=== PATIENT | female | born 1990 | race Caucasian/White ===

== ENCOUNTER 2018-08-16 18:14 | Emergency (ER) | payer MEDICAID, SELFPAY ==
[2018-08-16 18:24] VITALS: BP 139/69; PULSE 100; RESP 17; TEMP 36.3; O2SAT 98
--- NOTE | 2018-08-16 18:28 | DI.RAD_ITS ---
SYMPTOM/DIAGNOSIS: COUGH PA AND LATERAL CHEST: Comparison is made with 04/24/13. Heart size and pulmonary vasculature are within normal limits. There is an opacity seen in the left lower lobe posteriorly. The lungs are otherwise clear. No effusions or pneumothoraces are identified. The bones are intact. There are degenerative changes seen in the spine. IMPRESSION: Opacity seen in the left lower lobe posteriorly. This may represent a pneumonia. A follow up chest xray is recommended after treatment to document complete resolution of the area.
--- NOTE | 2018-08-16 18:40 | W.ED.GENAD ---
Discharge Plan Disposition Patient Disposition: HOME Condition: Stable Discharge Details Chief Complaint: GenMedical Clinical Impression: Community acquired pneumonia Primary Care Provider: Meño Goodman ED Provider: Santiago Kwong Home Meds and New Rx's Prescriptions: New doxycycline hyclate 100 mg capsule 100 mg PO BID Qty: 20 RF: 0 albuterol sulfate 90 mcg/actuation HFA aerosol inhaler 1 puff IH Q6H PRN (Reason: bronchospasm) Qty: 8 RF: 0 No Action vit,[id number] [Prenatabs Rx] 1 EACH tablet 1 tab-cap PO DAILY Qty: 90 RF: 3 bupropion HCl 300 MG tablet extended release 24 hr 300 mg PO DAILY Qty: 30 RF: 11 Discharge Instructions Instructions: Community Acquired Pneumonia (ED) Additional Instructions: As you know it is our recommendation that he stay overnight. Since you are leaving to go home against the recommendations we do request that he follow-up immediately tomorrow morning with your primary care provider. Do not miss any doses of your antibiotic. Please take the inhaler as directed. If you notice any worsening of your symptoms whatsoever please return immediately. if you notice any worsening of your symptoms, or any new symptoms such as vomiting, diarrhea, fever, chills, shortness of breath, chest pain, numbness, weakness, or fainting , please return immediately to the emergency department for reevaluation. Please follow up with your primary care provider as soon as possible for reassessment and reevaluation. As always, it was a pleasure participating in your medical care today. Referrals: Meño Goodman [Primary Care Provider] - Medical Decision Making This is a pleasant 28-year-old female who presents for evaluation of malaise, cough with productive yellow sputum, mild headache, dehydration. Physical exam demonstrates wheezes and crackles in the lungs, notable dehydration on exam. No signs of meningitis on exam or abdominal tenderness. I feel she is most likely suffering from a viral URI worsened by her regular tobacco use. We will rehydrate, assess for pneumonia, and perform laboratory workup to evaluate for any acute process. In p.m. patient's laboratory workup has returned and demonstrates a notably elevated white count at 27, she has 9 bands present. Potassium is slightly low at 3.2, renal function is normal. Calcium is slightly low at 8.2. Chest x-ray results have returned and per virtual radiology there is left lower lobe infiltrate. Patient's oxygen saturations remained normal. She has complete resolution of her tachycardia. She has no tachypnea, and she states she feels much better. The patient's curb 65 score for pneumonia severity is 0, and places her in a low risk group with a 0.6% 30-day mortality with outpatient treatment recommended. Because of the evidence of pneumonia on x-ray, I do feel that antibiotics are indicated especially in conjunction with her elevated white count. Azithromycin and Rocephin were given. I discussed with the patient the option of inpatient admission, and she states very clearly that she would like to go home, and if she has to sign an AMA form then she has no problem doing that. She states that if she stays overnight she would just have nervous breakdowns, since she is not able to see her children. She assures me that she will follow-up with her PCP in the morning. After a long discussion with the patient regarding the risks and benefits of inpatient versus outpatient admission the patient will be discharged home per her request. We discussed that this does have slightly increased chance of worsened outcome however with her normal vital signs, no signs of hypoxemia, resolved tachycardia, and afebrile state I feel that it is certainly reasonable. Prior to discharge repeat examination demonstrated no signs of meningitis or nuchal rigidity, no significant chest pain, no signs of respiratory distress, no abdominal tenderness. Patient will be discharged home with close follow-up tomorrow morning with her PCP. Long and thorough discussion with her regarding red flags which to return. I have extensively reviewed the treatment plan and discharge instructions with the patient. I have addressed all patient concerns at this time. The patient was made aware of what symptoms to monitor for that would warrant a return to the emergency department. Discussed the plan with the patient, they demonstrate verbal understanding and agreement with our assessment and plan at this time. HPI General Date/Time Provider Initiated Documentation: 08/16/18 18:27. HPI Narrative: This is a 28-year-old female with no significant past medical history except for tobacco abuse who presents today for evaluation of 3-4 days of headache, occasional chills, nausea, cough with productive yellow sputum, with occasional loose stools. She denies any hematochezia melena or acholic stool. She denies any hematemesis. She does admit to minimal speckling of red in her sputum when she coughs today. No previous episodes of this, or his previous hemoptysis. She is not on estrogen. Denies PE risk factors such as recent long car rides, immobilization, recent surgery, prior history of DVT or PE, family history of PE or DVT, morbid obesity, exogenous estrogen and smoking, hemoptysis, history of cancer. She has been taking occasional Tylenol and Motrin for symptoms. She does not use any bronchodilators. She denies any other complaints at this time. She denies any chest pain, pleuritic chest pain, calf pain, IV or illicit drug use, or recent surgeries. Related Data Home Medications Medication Instructions Recorded Confirmed vit,[id number] 1 tab-cap PO DAILY #90 tab-cap 05/26/18 08/16/18 [Prenatabs Rx Tablet] bupropion HCl 300 mg PO DAILY #30 tab-cap 07/05/18 08/16/18 albuterol sulfate 1 puff IH Q6H PRN #8 gm 08/16/18 doxycycline hyclate 100 mg PO BID #20 cap 08/16/18 Previous Rx's Medication Instructions Recorded vit,[id number] 1 tab-cap PO DAILY #90 tab-cap 05/26/18 [Prenatabs Rx Tablet] bupropion HCl 300 mg PO DAILY #30 tab-cap 07/05/18 albuterol sulfate 1 puff IH Q6H PRN #8 gm 08/16/18 doxycycline hyclate 100 mg PO BID #20 cap 08/16/18 Allergies Allergy/AdvReac Type Severity Reaction Status Date / Time No Known Allergies Allergy Unverified 06/22/18 16:28 General Stated Complaint: GenMedical FELIZ: 3 Review of Systems Review of Systems All systems reviewed & are unremarkable except as noted in HPI and below PFSH Social History Smoking/Tobacco Use Status: Current every day Exam Narrative Exam Narrative: 1.Const: Well-nourished, Well-developed, appearing stated age 2.Eyes: PERRL, no conjunctival injection, and symmetrical lids. 3.ENT: Atraumatic external nose and ears. Notably dry MM. Neck: Symmetric, trachea midline, No thyromegaly. Patient demonstrates good movement of cervical neck. There is no nuchal rigidity, no nuchal tenderness. Patient is able to flex the neck without any difficulty or significant pain. Negative Kernig's and Brudzinski sign. 4.CVS: +S1/S2, No murmurs or gallops. Peripheral pulses 2+ and equal in all extremities. Brisk capillary refill in all extremities. 5.RESP: Unlabored respiratory effort. Notable crackles and wheezes throughout. 6.GI: Soft, Nontender/Nondistended, No hepatosplenomegaly. No guarding or rebound. No pain at McBurney's point, negative Peter sign. 7.MSK: Normocephalic/Atraumatic, Extremities w/o deformity or ttp No cyanosis or clubbing, Normal movement of all extremities 8.Skin: Warm, Dry. No rashes or lesions. 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 Sensation grossly intact, no focal neurologic deficits. 10.Psych: (AAO) x3. Appropriate mood and affect Course Vital Signs Temperature 36.3 C L 08/16/18 18:24 Pulse 100 H 08/16/18 18:24 Respiratory Rate 17 08/16/18 18:24 Blood Pressure 139/69 08/16/18 18:24 Pulse Oximetry 98 08/16/18 18:24 Temperature 36.3 C L 08/16/18 18:24 Temperature Source Temporal Artery Scan 08/16/18 18:24 Pulse 100 H 18 18:24 Respiratory Rate 17 08/16/18 18:24 Respiratory Effort 08/16/18 18:27 Blood Pressure 139/69 08/16/18 18:24 Blood Pressure Position Supine 08/16/18 18:24 Pulse Oximetry 98 08/16/18 18:24 Oxygen Delivery Method Room Air 08/16/18 18:24 Oxygen Flow Rate 0 08/16/18 18:24
--- NOTE | 2018-08-16 18:45 | ED.GENADUL_ITS ---
Discharge Plan Disposition Patient Disposition: HOME Condition: Stable Discharge Details Chief Complaint: GenMedical Clinical Impression: Community acquired pneumonia Primary Care Provider: Meño Goodman ED Provider: Santiago Kwong Home Meds and New Rx's Prescriptions: New doxycycline hyclate 100 mg capsule 100 mg PO BID Qty: 20 RF: 0 albuterol sulfate 90 mcg/actuation HFA aerosol inhaler 1 puff IH Q6H PRN (Reason: bronchospasm) Qty: 8 RF: 0 No Action vit,[id number] [Prenatabs Rx] 1 EACH tablet 1 tab-cap PO DAILY Qty: 90 RF: 3 bupropion HCl 300 MG tablet extended release 24 hr 300 mg PO DAILY Qty: 30 RF: 11 Discharge Instructions Instructions: Community Acquired Pneumonia (ED) Additional Instructions: As you know it is our recommendation that he stay overnight. Since you are leaving to go home against the recommendations we do request that he follow-up immediately tomorrow morning with your primary care provider. Do not miss any doses of your antibiotic. Please take the inhaler as directed. If you notice any worsening of your symptoms whatsoever please return immediately. if you notice any worsening of your symptoms, or any new symptoms such as vomiting, diarrhea, fever, chills, shortness of breath, chest pain, numbness, weakness, or fainting , please return immediately to the emergency department for reevaluation. Please follow up with your primary care provider as soon as possible for reassessment and reevaluation. As always, it was a pleasure participating in your medical care today. Referrals: Meño Goodman [Primary Care Provider] - Medical Decision Making This is a pleasant 28-year-old female who presents for evaluation of malaise, cough with productive yellow sputum, mild headache, dehydration. Physical exam demonstrates wheezes and crackles in the lungs, notable dehydration on exam. No signs of meningitis on exam or abdominal tenderness. I feel she is most likely suffering from a viral URI worsened by her regular tobacco use. We will rehydrate, assess for pneumonia, and perform laboratory workup to evaluate for any acute process. In p.m. patient's laboratory workup has returned and demonstrates a notably elevated white count at 27, she has 9 bands present. Potassium is slightly low at 3.2, renal function is normal. Calcium is slightly low at 8.2. Chest x-ray results have returned and per virtual radiology there is left lower lobe infiltrate. Patient's oxygen saturations remained normal. She has complete resolution of her tachycardia. She has no tachypnea, and she states she feels much better. The patient's curb 65 score for pneumonia severity is 0, and places her in a low risk group with a 0.6% 30-day mortality with outpatient treatment recommended. Because of the evidence of pneumonia on x-ray, I do feel that antibiotics are indicated especially in conjunction with her elevated white count. Azithromycin and Rocephin were given. I discussed with the patient the option of inpatient admission, and she states very clearly that she would like to go home, and if she has to sign an AMA form then she has no problem doing that. She states that if she stays overnight she would just have nervous breakdowns, since she is not able to see her children. She assures me that she will follow-up with her PCP in the morning. After a long discussion with the patient regarding the risks and benefits of inpatient versus outpatient admission the patient will be discharged home per her request. We discussed that this does have slightly increased chance of worsened outcome however with her normal vital signs, no signs of hypoxemia, resolved tachycardia , and afebrile state I feel that it is certainly reasonable. Prior to discharge repeat examination demonstrated no signs of meningitis or nuchal rigidity, no significant chest pain, no signs of respiratory distress, no abdominal tenderness. Patient will be discharged home with close follow-up tomorrow morning with her PCP. Long and thorough discussion with her regarding red flags which to return. I have extensively reviewed the treatment plan and discharge instructions with the patient. I have addressed all patient concerns at this time. The patient was made aware of what symptoms to monitor for that would warrant a return to the emergency department. Discussed the plan with the patient, they demonstrate verbal understanding and agreement with our assessment and plan at this time. HPI General Date/Time Provider Initiated Documentation: 08/16/18 18:27 . HPI Narrative: This is a 28-year-old female with no significant past medical history except for tobacco abuse who presents today for evaluation of 3- 4 days of headache, occasional chills, nausea, cough with productive yellow sputum, with occasional loose stools. She denies any hematochezia melena or acholic stool. She denies any hematemesis. She does admit to minimal speckling of red in her sputum when she coughs today. No previous episodes of this, or his previous hemoptysis. She is not on estrogen. Denies PE risk factors such as recent long car rides, immobilization, recent surgery, prior history of DVT or PE, family history of PE or DVT, morbid obesity, exogenous estrogen and smoking, hemoptysis, history of cancer. She has been taking occasional Tylenol and Motrin for symptoms. She does not use any bronchodilators. She denies any other complaints at this time. She denies any chest pain, pleuritic chest pain, calf pain, IV or illicit drug use, or recent surgeries. Related Data Home Medications Medication Instructions Recorded Confirmed vit,[id number] 1 tab-cap PO DAILY #90 tab-cap 05/26/18 08/16/18 [Prenatabs Rx Tablet] bupropion HCl 300 mg PO DAILY #30 tab-cap 07/05/18 08/16/18 albuterol sulfate 1 puff IH Q6H PRN #8 gm 08/16/18 doxycycline hyclate 100 mg PO BID #20 cap 08/16/18 Previous Rx's Medication Instructions Recorded vit,[id number] 1 tab-cap PO DAILY #90 tab-cap 05/26/18 [Prenatabs Rx Tablet] bupropion HCl 300 mg PO DAILY #30 tab-cap 07/05/18 albuterol sulfate 1 puff IH Q6H PRN #8 gm 08/16/18 doxycycline hyclate 100 mg PO BID #20 cap 08/16/18 Allergies Allergy/AdvReac Type Severity Reaction Status Date / Time No Known Allergies Allergy Unverified 06/22/18 16:28 General Stated Complaint: GenMedical FELIZ: 3 Review of Systems Review of Systems All systems reviewed & are unremarkable except as noted in HPI and below PFSH Social History Smoking/Tobacco Use Status: Current every day Exam Narrative Exam Narrative: 1.Const: Well-nourished, Well-developed, appearing stated age 2.Eyes: PERRL, no conjunctival injection, and symmetrical lids. 3.ENT: Atraumatic external nose and ears. Notably dry MM. Neck: Symmetric, trachea midline, No thyromegaly. Patient demonstrates good movement of cervical neck. There is no nuchal rigidity, no nuchal tenderness. Patient is able to flex the neck without any difficulty or significant pain. Negative Kernig's and Brudzinski sign. 4.CVS: +S1/S2, No murmurs or gallops. Peripheral pulses 2+ and equal in all extremities. Brisk capillary refill in all extremities. 5.RESP: Unlabored respiratory effort. Notable crackles and wheezes throughout. 6.GI: Soft, Nontender/Nondistended, No hepatosplenomegaly. No guarding or rebound. No pain at McBurney's point, negative Peter sign. 7.MSK: Normocephalic/Atraumatic, Extremities w/o deformity or ttp No cyanosis or clubbing, Normal movement of all extremities 8.Skin: Warm, Dry. No rashes or lesions. 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 Sensation grossly intact, no focal neurologic deficits. 10.Psych: (AAO) x3. Appropriate mood and affect Course Vital Signs Temperature 36.3 C L 08/16/18 18:24 Pulse 100 H 08/16/18 18:24 Respiratory Rate 17 08/16/18 18:24 Blood Pressure 139/69 08/16/18 18:24 Pulse Oximetry 98 08/16/18 18:24 Temperature 36.3 C L 08/16/18 18:24 Temperature Source Temporal Artery Scan 08/16/18 18:24 Pulse 100 H 18 18:24 Respiratory Rate 17 08/16/18 18:24 Respiratory Effort 08/16/18 18:27 Blood Pressure 139/69 08/16/18 18:24 Blood Pressure Position Supine 08/16/18 18:24 Pulse Oximetry 98 08/16/18 18:24 Oxygen Delivery Method Room Air 08/16/18 18:24 Oxygen Flow Rate 0 08/16/18 18:24
[2018-08-16 18:47] VITALS: RESP 17
[2018-08-16 18:51] LABS: Abs Immature Grans 0.39 k/cumm (0.0-0.09); Basophils % 0.1; HGB 11.5 g/dL (12.0-15.5); Mean Corp. HGB Concentration 33.8 g/dL (32.0-36.0); Mean Corpuscular Hemoglobin 30.2 pg (27.0-33.0); Mean Corpuscular Volume 89.2 fL (80-95); Mean Platelet Volume 11.1 fL (8.0-11.0); Platelet Count 218 x1000/uL (130-400); RBC 3.81 m/cumm (4.00-5.20); RBC Distribution Width 12.8 % (11.7-14.6)
[2018-08-16 18:54] LABS: Absolute Basophil Count 0.03 k/cumm (0.0-0.2)
[2018-08-16] MEDS: Normal Saline 1,000 ML 1000 ML IV ×2 (19:00→21:23)
[2018-08-16] MEDS: Albuterol/Ipratropium 3 ML UPD VIAL 9 ML UPD (19:00)
[2018-08-16 19:17] LABS: ALT 27 U/L (12-78); AST 13 U/L (15-37); Albumin 2.8 g/dL (3.4-5.0); Alkaline Phosphatase 99 U/L (46-116); Anion Gap 6.8 mmol/L (3-11); BUN 15 mg/dL (7-18); Bilirubin, Total 0.6 mg/dL (0.2-1.0); CO2 27.2 mmol/L (21.0-32.0); CREATININE 1.03 mg/dL (0.55-1.02); Calcium 8.2 mg/dL (8.5-10.1); Chloride 101 mmol/L (98-107); Glucose 159 mg/dL (70-100); Potassium 3.2 mmol/L (3.5-5.1); Sodium 135 mmol/L (136-145)
[2018-08-16 19:36] LABS: Absolute Eosinophil Count 0.28 k/cumm (0.0-0.7); Absolute Lymphocyte Count 2.22 k/cumm (1.2-3.4); Absolute Monocyte Count 1.67 k/cumm (0.11-0.7); Absolute Neutrophil Count 23.31 k/cumm (1.2-6.7); Atypical Lymphocytes % 2
[2018-08-16 19:41] LABS: White Blood Cell Count 27.75 k/cumm (4.4-10.8)
[2018-08-16] MEDS: Ondansetron 4 MG/2 ML VIAL (19:48)
[2018-08-16 20:07] LABS: Lactate-non-spesis 1.3 mmol/L (0.6-1.4)
--- NOTE | 2018-08-16 20:17 | DI.VRAD_ITS ---
EXAM: XR Chest, 2 Views EXAM DATE/TIME: 08/16/2018 6:36 PM CLINICAL HISTORY: 28 years old, female; Cough 1 week TECHNIQUE: XR of the chest, 2 views. COMPARISON: No relevant prior studies available. FINDINGS: Lungs: Left lower lobe infiltrate. Pleural space: Unremarkable. No pleural effusion. No pneumothorax. Heart/Mediastinum: Unremarkable. No cardiomegaly. Bones/joints: Spinal degenerative changes. IMPRESSION: Left lower lobe infiltrate. Dictated and Authenticated by: Elie Yoo MD. Ordering:IVIS BUSTILLO MD
[2018-08-16] MEDS: AZITHROMYCIN 500 MG in Normal Saline 250 ML 250 MG IVPB (21:23)
[2018-08-16 21:55] LABS: Bilirubin Small (Negative); Blood Small (Negative); Clarity Clear; Glucose Negative (Negative); Ketones Trace mg/dL (Negative); Leukocyte Esterase Negative (Negative); Nitrite Negative (Negative); Specific Gravity 1.015 (1.005-1.025); pH 6.5 (5-8)
[2018-08-16] MEDS: LORazepam 2 MG/ML VIAL 0.5 MG IVP (21:57)
[2018-08-16 22:06] LABS: Bacteria Moderate HPF (Negative); C & S Indicated? No/Sq. Contamination; Casts Negative LPF (Negative); Crystals Negative HPF (Negative); Epithelial Cells Many HPF (Negative); Mucus Trace (Negative)
[2018-08-16 22:27] VITALS: BP 130/79; PULSE 97; RESP 16; TEMP 36.5; O2SAT 98
== END 2018-08-16 22:29 | disposition home or self-care (01) ==
PROVIDERS: Emergency Provider Student in an Organized Health Care Education/Training Program; PCP Family Medicine
DX: J18.9 Pneumonia, unspecified organism (principal); E87.6 Hypokalemia; F17.210 Nicotine dependence, cigarettes, uncomplicated
CPT/HCPCS: 36415; 80053; 81025; 87040; 94640; 96361; 96365; 96367; 96375; 99284; 71046; 81003; 81015; 83605; 85025; 99285; J0456; J0696; J1885; J2060; J2405; J7620

== ENCOUNTER 2018-08-17 10:30 | Emergency (ER) | payer MEDICAID, SELFPAY ==
[2018-08-17 10:37] VITALS: BP 128/64; PULSE 82; RESP 16; TEMP 36.3; O2SAT 97
--- NOTE | 2018-08-17 11:06 | ED.GENADUL_ITS ---
Discharge Plan Disposition Patient Disposition: HOME Condition: Fair Discharge Details Chief Complaint: Recheck Clinical Impression: Pneumonia Primary Care Provider: Meño Goodman ED Provider: Anne Storey Home Meds and New Rx's Prescriptions: Continue vit,[id number] [Prenatabs Rx] 1 EACH tablet 1 tab-cap PO DAILY Qty: 90 RF: 3 bupropion HCl 300 MG tablet extended release 24 hr 300 mg PO DAILY Qty: 30 RF: 11 doxycycline hyclate 100 mg capsule 100 mg PO BID Qty: 20 RF: 0 albuterol sulfate 90 mcg/actuation HFA aerosol inhaler 1 puff IH Q6H PRN (Reason: bronchospasm) Qty: 8 RF: 0 acetaminophen [Mapap Extra Strength] 500 MG tablet 1,000 mg PO Q6H 5 Days Qty: 60 RF: 0 ibuprofen [Motrin IB] 200 MG tablet 600 mg PO Q6H 5 Days Qty: 60 RF: 0 Discharge Instructions Instructions: Pneumonia (ED) Additional Instructions: Continue to encourage hydration. Please take antibiotics and use inhaler as previously prescribed. You are giving your first dose of doxycycline for today. Please keep appointment for Wednesday at 1:20PM with your primary care. If you develop shortness of breath, difficulty breathing, inability to stay hydrated or other new/worsening symptoms please seek care urgently once again. Referrals: Meño Goodman [Primary Care Provider] - 08/19/18 1:20 pm ([phone]) Medical Decision Making Patient is a 28-year-old female presenting today with chief complaint of cough. Patient was seen yesterday and diagnosed with pneumonia. She reports she was advised to come back for recheck today. States that she continues to be fatigued, endorsed cough, chills. Has been trying to hydrate but states this is been a slow process. Was given 2 L while here yesterday. Was noted to have an elevated white count and a left lower lobe infiltrate. At this time, she is also endorsing pain in the left side of her back. Patient is an active smoker. On exam, she appears nontoxic. Nursing staff reports that she appears much improved from yesterday. She appears well-hydrated at this time. Vital signs are within normal limits. Patient is not yet begun her doxycycline and she reports she is on the time because of the pharmacy. We will give her dosing of this year. 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 We will give her nebulizer this did help with symptom medic management yesterday. The area of discomfort the patient is indicating, is consistent with area of pneumonia may also be associated with pleuritis or muscle pain from coughing. Patient received a duo nebulizer. Reports that this has increased her coughing. I am not hearing the patient cough at this time. She continues to breathe comfortably. She received her first dose of doxycycline and she has not yet been able to pick this up from the pharmacy. IM Toradol to help with her chest wall discomfort. Patient also be given a Lidoderm patch. I did discuss with her that given the underlying source of this pain, it will be quite difficult to treat. Patient is hydrating well here. I advised she continue to increase her hydration. Tylenol and/or ibuprofen as needed for discomfort. Advised on the time she may next take ibuprofen. I did contact the primary care office and appointment was made for the patient on Wednesday. She was given strict return precautions. All of her questions and concerns were addressed and she is in agreement with this plan. HPI General Mode of arrival: ambulatory . Date/Time Provider Initiated Documentation: 08/17/18 10:47 . Limitations to Documentation: no limitations . Information obtained by: patient . History of Present Illness 28 year old F presents to the emergency department with the chief complaint of pneumonia, described as moderate, with intensity rated at 8. Quality is described as stabbing (with cough) and aching, and is localized to the back ( left ). Patient reports no radiation. Patient started experiencing this day( s) (5) and it has been constant. No relieving factors improve symptom(s), Movement worsens symptoms (coughing and deep inspiration) . Patient notes cough, fever/chills, loss of appetite and shortness of breath (with cough); denies chest pain and rash. Patient did receive the following treatments prior to arrival, none Related Data Home Medications Medication Instructions Recorded Confirmed vit,[id number] 1 tab-cap PO DAILY #90 tab-cap 05/26/18 08/16/18 [Prenatabs Rx] bupropion HCl 300 mg PO DAILY #30 tab-cap 08/21/18 10/02/18 acetaminophen [Mapap Extra 1,000 mg PO Q6H 5 Days #60 tab 08/16/18 Strength] albuterol sulfate 1 puff IH Q6H PRN #8 gm 08/16/18 doxycycline hyclate 100 mg PO BID #20 cap 08/16/18 ibuprofen [Motrin IB] 600 mg PO Q6H 5 Days #60 tab 08/16/18 Previous Rx's Medication Instructions Recorded vit,[id number] 1 tab-cap PO DAILY #90 tab-cap 05/26/18 [Prenatabs Rx] bupropion HCl 300 mg PO DAILY #30 tab-cap 07/05/18 acetaminophen [Mapap Extra 1,000 mg PO Q6H 5 Days #60 tab 08/16/18 Strength] albuterol sulfate 1 puff IH Q6H PRN #8 gm 08/16/18 doxycycline hyclate 100 mg PO BID #20 cap 08/16/18 ibuprofen [Motrin IB] 600 mg PO Q6H 5 Days #60 tab 08/16/18 Allergies Allergy/AdvReac Type Severity Reaction Status Date / Time No Known Allergies Allergy Unverified 06/22/18 16:28 General Stated Complaint: Recheck FELIZ: 4 Review of Systems Constitutional Reports as per HPI, Reports chills, Reports fatigue, Reports fever(s) and Reports poor appetite ENT Denies ear discharge, Denies otalgia, Reports nasal congestion, Reports nasal discharge, Denies sinus pain, Denies sinus pressure and Denies sore throat Cardiovascular Denies chest pain and Reports dyspnea (only with coughing) Respiratory Reports as per HPI, Reports cough, Reports pain on inspiration, Reports pain with cough, Reports dyspnea (only with coughing) and Denies wheezing Gastrointestinal Denies change in stool character, Reports nausea (states that she has nausea after eating) and Denies vomiting Musculoskeletal Reports as per HPI and Reports back pain Integumentary/Breasts Denies rash Endocrine Reports fatigue Allergic/Immunologic Denies wheezing PFSH Social History Smoking/Tobacco Use Status: Current every day Exam Const General: cooperative, healthy appearing, comfortable, no acute distress, well developed, well groomed and acute distress Nutritional Appearance: well nourished and overweight Orientation: alert and awake [facility] Head: normal to inspection and normocephalic Ears: hearing grossly normal bilaterally, external ears normal and TM's normal bilaterally General nose exam: external nose normal Mouth: oral mucosae normal, lip normal, tongue normal, oropharynx normal, moist mucous membranes and no audible dysphonia Teeth and gingiva: dentition normal Throat: posterior oropharynx normal, tonsils normal and uvula midline Eyes General: appearance normal, both eyes and all related structures Neck Neck: normal visual inspection, no lymphadenopathy and no meningeal signs Resp Effort & Inspection: normal respiratory effort, able to speak in complete sentences and no respiratory distress Auscultation: clear to auscultation bilaterally, no rales, no rhonchi and no wheezes Cardio Rate: regular rate Rhythm: regular rhythm Heart Sounds: S1 normal and S2 normal Back/Spine/Pelvis Back/spine/pelvis image: 2 1. area of discomfort Skin General skin exam: no rashes or lesions noted Neuro General: alert and awake Cognition: normal cognition Speech: speech normal Gait: normal gait Psych Appearance: grossly normal and well kempt Mental Status: mental status grossly normal Speech and Movement: speech and movement normal Course Vital Signs Temperature 36.3 C L 08/17/18 10:37 Pulse 82 08/17/18 10:37 Respiratory Rate 16 08/17/18 10:37 Blood Pressure 128/64 08/17/18 10:37 Pulse Oximetry 97 08/17/18 10:37 Temperature 36.3 C L 08/17/18 10:37 Temperature Source Temporal Artery Scan 08/17/18 10:37 Pulse 82 08/17/18 10:37 Respiratory Rate 16 08/17/18 10:37 Blood Pressure 128/64 08/17/18 10:37 Blood Pressure Position Sitting 08/17/18 10:37 Pulse Oximetry 97 08/17/18 10:37 Oxygen Delivery Method Room Air 08/17/18 10:37 Oxygen Flow Rate 0 08/17/18 10:37 Pain Level 8 08/17/18 10:37
[2018-08-17 11:07] VITALS: RESP 1; O2SAT 97
[2018-08-17] MEDS: Doxycycline Hyclate 100 MG CAP PO (11:07)
[2018-08-17] MEDS: Ketorolac 60 MG/2 ML VIAL IM (11:07)
[2018-08-17] MEDS: Albuterol/Ipratropium 3 ML UPD VIAL UPD (11:07)
[2018-08-17] MEDS: Lidocaine 5% Patch 1 PATCH TP (11:28)
== END 2018-08-17 11:33 | disposition home or self-care (01) ==
PROVIDERS: Emergency Provider Physician Assistant; PCP Family Medicine
DX: J18.9 Pneumonia, unspecified organism (principal); F17.210 Nicotine dependence, cigarettes, uncomplicated
CPT/HCPCS: 94640; 96372; 99284; 99283; J1885; J7620

== ENCOUNTER 2018-10-11 08:19 | Emergency (ER) | payer MEDICAID, SELFPAY ==
[2018-10-11 08:27] VITALS: BP 131/71; PULSE 78; RESP 18; TEMP 37.1; O2SAT 96
--- NOTE | 2018-10-11 08:39 | DI.RAD_ITS ---
SYMPTOM/DIAGNOSIS: COUGH PA AND LATERAL CHEST: Comparison is made with 16 August 2018. The heart size is normal. The lungs are suboptimally inflated on both views but appear clear. The previously noted left lower lobe infiltrate has cleared. IMPRESSION: Negative chest x-ray.
[2018-10-11 08:43] VITALS: RESP 8
[2018-10-11] MEDS: Albuterol 2.5 MG/3 ML INH SOLN VIAL UPD (08:43)
[2018-10-11 10:20] VITALS: BP 113/74; PULSE 81; RESP 16; TEMP 36.8; O2SAT 99
--- NOTE | 2018-10-11 10:22 | W.ED.GENAD ---
Discharge Plan Disposition Patient Disposition: HOME Discharge Details Chief Complaint: RespSymp Clinical Impression: URI (upper respiratory infection), Diarrhea Primary Care Provider: Meño Goodman ED Provider: Andrzej Pina Home Meds and New Rx's Prescriptions: Continue benzonatate 200 mg capsule 200 mg PO TID PRN (Reason: cough) Qty: 30 RF: 0 inhalational spacing device [Aerochamber MV] spacer .ROUTE .MEDSUPPLY Qty: 1 RF: 0 [id number] [Prenatabs Rx] 1 EACH tablet 1 tab-cap PO DAILY Qty: 90 RF: 3 bupropion HCl 300 MG tablet extended release 24 hr 300 mg PO DAILY Qty: 30 RF: 11 albuterol sulfate 90 mcg/actuation HFA aerosol inhaler 1 puff IH Q6H PRN (Reason: bronchospasm) Qty: 8 RF: 0 Discharge Instructions Instructions: Upper Respiratory Infection (ED), Acute Diarrhea (ED) Additional Instructions: Please drink plenty of fluid and allow for plenty of rest. Please contact your primary care physician to arrange follow-up. You may need further testing of your stool for diarrhea. Return to the ER for any worsening or new concerning symptoms. Stand Alone Forms: Work Release Referrals: Meño Goodman [Primary Care Provider] - Discharge Data Discharge Date/Time-TO BE ENTERED AT DEPARTURE: 10/11/18 10:39 Medical Decision Making 10:20 -- 28yo f smoker here with cough for the past 2 days, associated fatigue, body aches and JORDAN. Lungs clear. Saturating well and no resp distress. Albuterol neb was provided for reactive airway disease by nursing. Chest x-ray was reviewed and interpreted by radiology: Negative. I spoke with the radiologist about this and she noted that lungs much improved from prior pneumonia in August and now clear. Rapid flu testing was performed and negative. Patient also notes loose stool for the past month and likely started after antibiotic use. Consider C. difficile colitis. Abdomen benign. Patient unable to provide stool specimen here. She was advised to follow-up with her primary care physician. Advised supportive care and outpatient follow-up. Patient verbalized understanding of the importance of timely outpatient follow-up and will call her primary care physician to arrange this today. Disposition decision was made weighing the risks and benefits of hospitalization versus outpatient treatment, the risk for further decompensation, and the patient's wishes. The patient was stable and requested discharge. Prior to discharge, my usual and customary return precautions were reviewed with the patient and his - this included follow-up instructions and reason to return to the emergency department if condition worsens, does not improve as expected, or other new concerns arise. HPI General Mode of arrival: ambulatory. Date/Time Provider Initiated Documentation: 10/11/18 08:36. Limitations to Documentation: no limitations. Information obtained by: patient. HPI Narrative: 28yo f smoker here with cough for the past 2 days, associated fatigue, body aches and JORDAN. Symptoms are moderate, persistent, no modifiers. No associated fever. Related Data Home Medications Medication Instructions Recorded Confirmed vit,[id number] 1 tab-cap PO DAILY #90 tab-cap 05/26/18 10/11/18 [Prenatabs Rx] bupropion HCl 300 mg PO DAILY #30 tab-cap 07/05/18 10/11/18 albuterol sulfate 1 puff IH Q6H PRN #8 gm 08/16/18 08/19/18 benzonatate 200 mg capsule 200 mg PO TID PRN #30 cap 08/19/18 10/11/18 inhalational spacing device #1 each 08/19/18 08/19/18 Previous Rx's Medication Instructions Recorded vit,[id number] 1 tab-cap PO DAILY #90 tab-cap 05/26/18 [Prenatabs Rx] bupropion HCl 300 mg PO DAILY #30 tab-cap 07/05/18 albuterol sulfate 1 puff IH Q6H PRN #8 gm 08/16/18 benzonatate 200 mg capsule 200 mg PO TID PRN #30 cap 08/19/18 inhalational spacing device #1 each 08/19/18 Allergies Allergy/AdvReac Type Severity Reaction Status Date / Time No Known Allergies Allergy Unverified 10/11/18 08:34 General Stated Complaint: RespSymp FELIZ: 3 Review of Systems Constitutional Reports body ache(s) and Reports headache(s) ENT Reports headache(s) Cardiovascular Denies chest pain and Reports dyspnea Respiratory Reports cough and Reports dyspnea Neurologic Reports headache(s) PFSH Social History household members: family Smoking/Tobacco Use Status: Current every day alcohol intake: current substance use type: marijuana and other details: COCAINE/CRACK (VERY RARELY AT A [employer]),OPIATES, RX FOR BACK PAIN, NOT HERS seatbelt use: sometimes Social History household members: family Smoking/Tobacco Use Status: Current every day alcohol intake: current substance use type: marijuana and other details: COCAINE/CRACK (VERY RARELY AT A [employer]),OPIATES, RX FOR BACK PAIN, NOT HERS seatbelt use: sometimes Exam Const General: cooperative and no acute distress HENMT Head: normocephalic and atraumatic Mouth: moist mucous membranes Eyes Conjunctivae: normal conjunctivae Sclera: normal sclerae Neck Neck: trachea midline and supple Resp Auscultation: no rales, rhonchi lower bilaterally and no wheezes Cardio Jugular venous pressure: no JVD Rate: regular rate and not tachycardic Rhythm: regular rhythm GI Palpation: soft, not firm, no guarding, no masses, not rigid and nontender Skin General skin exam: no rashes or lesions noted Neuro General: alert, awake, oriented x3 and tone normal Extrem General: no edema Psych Appearance: grossly normal Mental Status: mental status grossly normal Speech and Movement: speech and movement normal Course Vital Signs Temperature 37.1 C 10/11/18 08:27 Pulse 78 10/11/18 08:27 Respiratory Rate 18 10/11/18 08:27 Blood Pressure 131/71 10/11/18 08:27 Pulse Oximetry 96 10/11/18 08:27 Temperature 36.8 C 10/11/18 10:20 Temperature Source Temporal Artery Scan 10/11/18 10:20 Pulse 81 10/11/18 10:20 Respiratory Rate 16 10/11/18 10:20 Respiratory Effort 10/11/18 08:36 Respiratory Depth Normal 10/11/18 08:36 Blood Pressure 113/74 10/11/18 10:20 Blood Pressure Position Sitting 10/11/18 08:27 Pulse Oximetry 99 10/11/18 10:20 Oxygen Delivery Method Room Air 10/11/18 10:20 Oxygen Flow Rate 0 10/11/18 10:20 Pain Level 6 10/11/18 08:27 Lab/Test Results Lab/Test Results: 10/11/18 09:43 Nasopharynx Influenza Types A,B Antigen - Final
--- NOTE | 2018-10-11 10:25 | ED.GENADUL_ITS ---
Discharge Plan Disposition Patient Disposition: HOME Discharge Details Chief Complaint: RespSymp Clinical Impression: URI (upper respiratory infection), Diarrhea Primary Care Provider: Meño Goodman ED Provider: Andrzej Pina Home Meds and New Rx's Prescriptions: Continue benzonatate 200 mg capsule 200 mg PO TID PRN (Reason: cough) Qty: 30 RF: 0 inhalational spacing device [Aerochamber MV] spacer .ROUTE .MEDSUPPLY Qty: 1 RF: 0 vit,[id number] [Prenatabs Rx] 1 EACH tablet 1 tab-cap PO DAILY Qty: 90 RF: 3 bupropion HCl 300 MG tablet extended release 24 hr 300 mg PO DAILY Qty: 30 RF: 11 albuterol sulfate 90 mcg/actuation HFA aerosol inhaler 1 puff IH Q6H PRN (Reason: bronchospasm) Qty: 8 RF: 0 Discharge Instructions Instructions: Upper Respiratory Infection (ED), Acute Diarrhea (ED) Additional Instructions: Please drink plenty of fluid and allow for plenty of rest. Please contact your primary care physician to arrange follow-up. You may need further testing of your stool for diarrhea. Return to the ER for any worsening or new concerning symptoms. Stand Alone Forms: Work Release Referrals: Meño Goodman [Primary Care Provider] - Discharge Data Discharge Date/Time-TO BE ENTERED AT DEPARTURE: 10/11/18 10:39 Medical Decision Making 10:20 -- 28yo f smoker here with cough for the past 2 days, associated fatigue, body aches and JORDAN. Lungs clear. Saturating well and no resp distress. Albuterol neb was provided for reactive airway disease by nursing. Chest x-ray was reviewed and interpreted by radiology: Negative. I spoke with the radiologist about this and she noted that lungs much improved from prior pneumonia in August and now clear. Rapid flu testing was performed and negative. Patient also notes loose stool for the past month and likely started after antibiotic use. Consider C. difficile colitis. Abdomen benign. Patient unable to provide stool specimen here. She was advised to follow-up with her primary care physician. Advised supportive care and outpatient follow-up. Patient verbalized understanding of the importance of timely outpatient follow-up and will call her primary care physician to arrange this today. Disposition decision was made weighing the risks and benefits of hospitalization versus outpatient treatment, the risk for further decompensation , and the patient's wishes. The patient was stable and requested discharge. Prior to discharge, my usual and customary return precautions were reviewed with the patient and his - this included follow-up instructions and reason to return to the emergency department if condition worsens, does not improve as expected, or other new concerns arise. HPI General Mode of arrival: ambulatory . Date/Time Provider Initiated Documentation: 10/11/18 08:36 . Limitations to Documentation: no limitations . Information obtained by: patient . HPI Narrative: 28yo f smoker here with cough for the past 2 days, associated fatigue, body aches and JORDAN. Symptoms are moderate, persistent, no modifiers. No associated fever. Related Data Home Medications Medication Instructions Recorded Confirmed vit,[id number] 1 tab-cap PO DAILY #90 tab-cap 05/26/18 10/11/18 [Prenatabs Rx] bupropion HCl 300 mg PO DAILY #30 tab-cap 07/05/18 10/11/18 albuterol sulfate 1 puff IH Q6H PRN #8 gm 08/16/18 08/19/18 benzonatate 200 mg capsule 200 mg PO TID PRN #30 cap 08/19/18 10/11/18 inhalational spacing device #1 each 08/19/18 08/19/18 Previous Rx's Medication Instructions Recorded vit,[id number] 1 tab-cap PO DAILY #90 tab-cap 05/26/18 [Prenatabs Rx] bupropion HCl 300 mg PO DAILY #30 tab-cap 07/05/18 albuterol sulfate 1 puff IH Q6H PRN #8 gm 08/16/18 benzonatate 200 mg capsule 200 mg PO TID PRN #30 cap 08/19/18 inhalational spacing device #1 each 08/19/18 Allergies Allergy/AdvReac Type Severity Reaction Status Date / Time No Known Allergies Allergy Unverified 10/11/18 08:34 General Stated Complaint: RespSymp FELIZ: 3 Review of Systems Constitutional Reports body ache(s) and Reports headache(s) ENT Reports headache(s) Cardiovascular Denies chest pain and Reports dyspnea Respiratory Reports cough and Reports dyspnea Neurologic Reports headache(s) PFSH Social History household members: family Smoking/Tobacco Use Status: Current every day alcohol intake: current substance use type: marijuana and other details: COCAINE/CRACK (VERY RARELY AT A [employer]),OPIATES, RX FOR BACK PAIN, NOT HERS seatbelt use: sometimes Social History household members: family Smoking/Tobacco Use Status: Current every day alcohol intake: current substance use type: marijuana and other details: COCAINE/CRACK (VERY RARELY AT A [employer]),OPIATES, RX FOR BACK PAIN, NOT HERS seatbelt use: sometimes Exam Const General: cooperative and no acute distress HENMT Head: normocephalic and atraumatic Mouth: moist mucous membranes Eyes Conjunctivae: normal conjunctivae Sclera: normal sclerae Neck Neck: trachea midline and supple Resp Auscultation: no rales, rhonchi lower bilaterally and no wheezes Cardio Jugular venous pressure: no JVD Rate: regular rate and not tachycardic Rhythm: regular rhythm GI Palpation: soft, not firm, no guarding, no masses, not rigid and nontender Skin General skin exam: no rashes or lesions noted Neuro General: alert, awake, oriented x3 and tone normal Extrem General: no edema Psych Appearance: grossly normal Mental Status: mental status grossly normal Speech and Movement: speech and movement normal Course Vital Signs Temperature 37.1 C 10/11/18 08:27 Pulse 78 10/11/18 08:27 Respiratory Rate 18 10/11/18 08:27 Blood Pressure 131/71 10/11/18 08:27 Pulse Oximetry 96 10/11/18 08:27 Temperature 36.8 C 10/11/18 10:20 Temperature Source Temporal Artery Scan 10/11/18 10:20 Pulse 81 10/11/18 10:20 Respiratory Rate 16 10/11/18 10:20 Respiratory Effort 10/11/18 08:36 Respiratory Depth Normal 10/11/18 08:36 Blood Pressure 113/74 10/11/18 10:20 Blood Pressure Position Sitting 10/11/18 08:27 Pulse Oximetry 99 10/11/18 10:20 Oxygen Delivery Method Room Air 10/11/18 10:20 Oxygen Flow Rate 0 10/11/18 10:20 Pain Level 6 10/11/18 08:27 Lab/Test Results Lab/Test Results: 10/11/18 09:43 Nasopharynx Influenza Types A,B Antigen - Final
[2018-10-11 10:39] VITALS: BP 113/74; PULSE 81; RESP 16; TEMP 36.8; O2SAT 99
== END 2018-10-11 10:39 | disposition home or self-care (01) ==
PROVIDERS: Emergency Provider Student in an Organized Health Care Education/Training Program; PCP Family Medicine
DX: J06.9 Acute upper respiratory infection, unspecified (principal); R19.7 Diarrhea, unspecified; F17.210 Nicotine dependence, cigarettes, uncomplicated
CPT/HCPCS: 87449; 94640; 99283; 71046; J7613

== ENCOUNTER 2018-10-31 16:23 | Outpatient (REF) | payer MEDICAID, SELFPAY | END 2018-10-31 16:43 | LOC: LBN 16:23 | PROVIDERS: PCP Family Medicine; Visit Provider Student in an Organized Health Care Education/Training Program | DX: R19.7 Diarrhea, unspecified (principal) | CPT/HCPCS: 87324 ==

== ENCOUNTER 2018-12-26 08:24 | Emergency (ER) | payer MEDICAID, SELFPAY ==
[2018-12-26 08:26] VITALS: BP 151/85; PULSE 94; RESP 20; TEMP 36.5; O2SAT 100
--- NOTE | 2018-12-26 08:44 | W.ED.GENAD ---
Discharge Plan Disposition Patient Disposition: HOME Condition: Stable Discharge Details Chief Complaint: EyeProblem Clinical Impression: Acute conjunctivitis of right eye Primary Care Provider: Meño Goodman ED Provider: Neri Echeverria Home Meds and New Rx's Prescriptions: Continued Aerochamber MV spacer .ROUTE .MEDSUPPLY Qty: 1 RF: 0 bupropion HCl 300 mg tablet extended release 24 hr 300 mg PO DAILY Qty: 30 RF: 11 Prenatabs Rx 1 EACH tablet 1 tab-cap PO DAILY Qty: 90 RF: 3 albuterol sulfate 90 mcg/actuation HFA aerosol inhaler 1 puff IH Q6H PRN (Reason: bronchospasm) Qty: 8 RF: 0 Discharge Instructions Instructions: Conjunctivitis (ED) Additional Instructions: Erythromycin 3-4 times daily to right eye for 4-5 days time. Off work today. Home to rest today. Return for any acute concerns. Please follow-up in clinic as planned. Stand Alone Forms: Work Release Medical Decision Making 28-year-old female with a right conjunctival injection crusting of the eyelid with mild irritation. No change in vision and no headache. She is also struggled with recurrent cough over 2 days time. Her lungs are clear, she is afebrile, do not feel that she has recurrent pneumonia. I do feel she has right conjunctivitis and will treat with erythromycin ophthalmic ointment. She is stable for discharge to home HPI General Mode of arrival: ambulatory. Date/Time Provider Initiated Documentation: 12/26/18 08:25. Limitations to Documentation: no limitations. Information obtained by: patient. History of Present Illness 28 year old F presents to the emergency department with the chief complaint of Right eye injection and crusting of eyelid, described as moderate, Quality is described as aching, and is localized to the eyes and right. Patient reports no radiation. Patient started experiencing this hour(s) and it has been constant. No relieving factors improve symptom(s), No exacerbating factors reported . Patient notes cough. Patient did receive the following treatments prior to arrival, none Related Data Home Medications Medication Instructions Recorded Confirmed Prenatabs Rx 1 tab-cap PO DAILY #90 tab-cap 05/26/18 12/26/18 albuterol sulfate 1 puff IH Q6H PRN #8 gm 08/16/18 12/26/18 inhalational spacing device #1 each 08/19/18 11/24/18 bupropion HCl XL 300 mg 24 hr 300 mg PO DAILY #30 tab-cap 11/24/18 12/26/18 tablet, extended release Previous Rx's Medication Instructions Recorded Prenatabs Rx 1 tab-cap PO DAILY #90 tab-cap 05/26/18 albuterol sulfate 1 puff IH Q6H PRN #8 gm 08/16/18 inhalational spacing device #1 each 08/19/18 bupropion HCl XL 300 mg 24 hr 300 mg PO DAILY #30 tab-cap 11/24/18 tablet, extended release Allergies Allergy/AdvReac Type Severity Reaction Status Date / Time No Known Allergies Allergy Unverified 11/24/18 10:51 General Stated Complaint: EyeProblem FELIZ: 4 Review of Systems Review of Systems 6 systems reviewed and otherwise negative [facility] Medical History Major depressive disorder with current active episode (Chronic 06/22/18) Social History household members: family highest education level completed: Associate degree: occupational, technical, vocational program what type of physical activity do you participate in: none Smoking and Tabacco status: Current every day alcohol intake: current substance use type: marijuana and other details: COCAINE/CRACK (VERY RARELY AT A [employer]),OPIATES, RX FOR BACK PAIN, NOT HERS Seatbelt use: sometimes Exam Narrative Exam Narrative: GEN: awake, alert, oriented 3. Pleasant, well groomed, interactive. HEAD: Normocephalic, atraumatic ENT: Mucous membranes moist, oropharynx unremarkable, External ear exam unremarkable EYES: PERRL, EOMI, right conjunctival injection, mild crusting of the eyelids. NECK: Full ROM, no RODRIGUE, no menigismus CHEST/RESP: Nontender, clear to auscultation bilateral, no wheeze/rhonchi/rales CARDIOVASCULAR: RRR, no murmur, rub danyel. 2+ Rad pulse bilateral ABDOMEN: Soft, nontender, no mass. +Bowel sounds EXT: Full ROM, no edema, no rash Neuro: Grossly normal neurologic exam, conversant, interactive. Psych: Speech fluent, thoughts congruent, affect normal Course Vital Signs Temperature 36.5 C 12/26/18 08:26 Pulse 94 H 12/26/18 08:26 Respiratory Rate 20 12/26/18 08:26 Blood Pressure 151/85 H 12/26/18 08:26 Pulse Oximetry 100 12/26/18 08:26 Temperature 36.5 C 12/26/18 08:26 Temperature Source Temporal Artery Scan 12/26/18 08:26 Pulse 94 H 12/26/18 08:26 Respiratory Rate 20 12/26/18 08:26 Respiratory Effort Non-Labored 12/26/18 08:29 Blood Pressure 151/85 H 12/26/18 08:26 Pulse Oximetry 100 12/26/18 08:26 Oxygen Delivery Method Room Air 12/26/18 08:26 Oxygen Flow Rate 0 12/26/18 08:26 Pain Level 7 12/26/18 08:26
--- NOTE | 2018-12-26 08:47 | ED.GENADUL_ITS ---
Discharge Plan Disposition Patient Disposition: HOME Condition: Stable Discharge Details Chief Complaint: EyeProblem Clinical Impression: Acute conjunctivitis of right eye Primary Care Provider: Meño Goodman ED Provider: Neri Echeverria Home Meds and New Rx's Prescriptions: Continued Aerochamber MV spacer .ROUTE .MEDSUPPLY Qty: 1 RF: 0 bupropion HCl 300 mg tablet extended release 24 hr 300 mg PO DAILY Qty: 30 RF: 11 Prenatabs Rx 1 EACH tablet 1 tab-cap PO DAILY Qty: 90 RF: 3 albuterol sulfate 90 mcg/actuation HFA aerosol inhaler 1 puff IH Q6H PRN (Reason: bronchospasm) Qty: 8 RF: 0 Discharge Instructions Instructions: Conjunctivitis (ED) Additional Instructions: Erythromycin 3-4 times daily to right eye for 4-5 days time. Off work today. Home to rest today. Return for any acute concerns. Please follow-up in clinic as planned. Stand Alone Forms: Work Release Medical Decision Making 28-year-old female with a right conjunctival injection crusting of the eyelid with mild irritation. No change in vision and no headache. She is also struggled with recurrent cough over 2 days time. Her lungs are clear, she is afebrile, do not feel that she has recurrent pneumonia. I do feel she has right conjunctivitis and will treat with erythromycin ophthalmic ointment. She is stable for discharge to home HPI General Mode of arrival: ambulatory . Date/Time Provider Initiated Documentation: 12/26/18 08:25 . Limitations to Documentation: no limitations . Information obtained by: patient . History of Present Illness 28 year old F presents to the emergency department with the chief complaint of Right eye injection and crusting of eyelid, described as moderate, Quality is described as aching, and is localized to the eyes and right. Patient reports no radiation. Patient started experiencing this hour(s) and it has been constant. No relieving factors improve symptom(s), No exacerbating factors reported . Patient notes cough. Patient did receive the following treatments prior to arrival, none Related Data Home Medications Medication Instructions Recorded Confirmed Prenatabs Rx 1 tab-cap PO DAILY #90 tab-cap 05/26/18 12/26/18 albuterol sulfate 1 puff IH Q6H PRN #8 gm 08/16/18 12/26/18 inhalational spacing device #1 each 08/19/18 11/24/18 bupropion HCl XL 300 mg 24 hr 300 mg PO DAILY #30 tab-cap 11/24/18 12/26/18 tablet, extended release Previous Rx's Medication Instructions Recorded Prenatabs Rx 1 tab-cap PO DAILY #90 tab-cap 05/26/18 albuterol sulfate 1 puff IH Q6H PRN #8 gm 08/16/18 inhalational spacing device #1 each 08/19/18 bupropion HCl XL 300 mg 24 hr 300 mg PO DAILY #30 tab-cap 11/24/18 tablet, extended release Allergies Allergy/AdvReac Type Severity Reaction Status Date / Time No Known Allergies Allergy Unverified 11/24/18 10:51 General Stated Complaint: EyeProblem FELIZ: 4 Review of Systems Review of Systems 6 systems reviewed and otherwise negative [facility] Medical History Major depressive disorder with current active episode (Chronic 06/22/18) Social History household members: family highest education level completed: Associate degree: occupational, technical, vocational program what type of physical activity do you participate in: none Smoking and Tabacco status: Current every day alcohol intake: current substance use type: marijuana and other details: COCAINE/CRACK (VERY RARELY AT A [employer]),OPIATES, RX FOR BACK PAIN, NOT HERS Seatbelt use: sometimes Exam Narrative Exam Narrative: GEN: awake, alert, oriented 3. Pleasant, well groomed, interactive. HEAD: Normocephalic, atraumatic ENT: Mucous membranes moist, oropharynx unremarkable, External ear exam unremarkable EYES: PERRL, EOMI, right conjunctival injection, mild crusting of the eyelids. NECK: Full ROM, no RODRIGUE, no menigismus CHEST/RESP: Nontender, clear to auscultation bilateral, no wheeze/rhonchi/rales CARDIOVASCULAR: RRR, no murmur, rub danyel. 2+ Rad pulse bilateral ABDOMEN: Soft, nontender, no mass. +Bowel sounds EXT: Full ROM, no edema, no rash Neuro: Grossly normal neurologic exam, conversant, interactive. Psych: Speech fluent, thoughts congruent, affect normal Course Vital Signs Temperature 36.5 C 12/26/18 08:26 Pulse 94 H 12/26/18 08:26 Respiratory Rate 20 12/26/18 08:26 Blood Pressure 151/85 H 12/26/18 08:26 Pulse Oximetry 100 12/26/18 08:26 Temperature 36.5 C 12/26/18 08:26 Temperature Source Temporal Artery Scan 12/26/18 08:26 Pulse 94 H 12/26/18 08:26 Respiratory Rate 20 12/26/18 08:26 Respiratory Effort Non-Labored 12/26/18 08:29 Blood Pressure 151/85 H 12/26/18 08:26 Pulse Oximetry 100 12/26/18 08:26 Oxygen Delivery Method Room Air 12/26/18 08:26 Oxygen Flow Rate 0 12/26/18 08:26 Pain Level 7 12/26/18 08:26
[2018-12-26] MEDS: Erythromycin Ophth Oint 3.5 GM TUBE OP (08:52)
== END 2018-12-26 08:55 | disposition home or self-care (01) ==
PROVIDERS: Emergency Provider Emergency Medicine; PCP Family Medicine
DX: H10.31 Unspecified acute conjunctivitis, right eye (principal)
CPT/HCPCS: 99283

== ENCOUNTER 2019-01-03 15:56 | Emergency (ER) | payer MEDICAID, SELFPAY ==
[2019-01-03] MEDS: Inhaler, Assist Device 1 EACH MC (16:00)
[2019-01-03 16:12] VITALS: BP 136/59; PULSE 73; RESP 20; TEMP 36.6; O2SAT 99
--- NOTE | 2019-01-03 16:27 | W.ED.GENAD ---
Discharge Plan Disposition Patient Disposition: HOME Condition: Stable Discharge Details Chief Complaint: RespSymp Clinical Impression: RAD (reactive airway disease) Primary Care Provider: Meño Goodman ED Provider: Jose Martin Reynoso Home Meds and New Rx's Prescriptions: New prednisone 20 mg tablet 60 mg PO DAILY 5 Days Qty: 15 RF: 0 azithromycin 250 mg tablet See Rx Instructions .ROUTE .COMPLEX Qty: 6 RF: 0 No Action Aerochamber MV spacer .ROUTE .MEDSUPPLY Qty: 1 RF: 0 bupropion HCl 300 mg tablet extended release 24 hr 300 mg PO DAILY Qty: 30 RF: 11 Prenatabs Rx 1 EACH tablet 1 tab-cap PO DAILY Qty: 90 RF: 3 albuterol sulfate 90 mcg/actuation HFA aerosol inhaler 1 puff IH Q6H PRN (Reason: bronchospasm) Qty: 8 RF: 0 Discharge Instructions Instructions: Reactive Airways Disease (ED) Additional Instructions: I suspect you have reactive airway disease and have a viral illness. Follow up with your primary care provider in 1-2 weeks. You should discuss having formal testing for asthma as well IF you have high fevers or feel you are significantly more ill return to the emergency department if you feel you are not improving in 2 days fill the antibiotic Medical Decision Making 28 yo female who denies any chronic medical problems, smoker, rare alcohol use and denies drug use, comes in with cc of intermittent cough for 4-5 months. Has not had any recent travel and denies chest asmita, fevers, chills, rashes. She feels fatigued but has felt this way for months. She has no chest asmita or pressure to suggest acs. She is speaking in full sentences on my exam in no distress. She has clear lungs throughout other than bilateral apical wheezing. She was given an inhaler and abx for pna per pt last fall but doesn't have an inhaler right now and hasn't seen her pcp due to insurance reasons. I suspect she has RAD and is worsened by likely smoking and viral uri. No fevers and apperas well with stable vitals so do not feel xray indicated. I am going to send her home with an inhaler and prescription for prednisone. She requests an abx and I advised it is likely viral but she still would like it. I advised if she is not better in 2-3 days to fill the prescription and return if worsening. She declines assistance with insurance at this time. She will return if worsening Differential Diagnosis asthma, copd, uri, pna, bronchitis HPI General Mode of arrival: ambulatory. Date/Time Provider Initiated Documentation: 01/03/19 16:14. Limitations to Documentation: no limitations. Information obtained by: patient. History of Present Illness 28 year old F presents to the emergency department with the chief complaint of cough, described as moderate, with intensity rated at 5. Patient started experiencing this month(s) (4) and it has been intermittent. No relieving factors improve symptom(s), No exacerbating factors reported . Related Data Home Medications Medication Instructions Recorded Confirmed Prenatabs Rx 1 tab-cap PO DAILY #90 tab-cap 05/26/18 01/03/19 albuterol sulfate 1 puff IH Q6H PRN #8 gm 08/16/18 12/26/18 inhalational spacing device #1 each 08/19/18 11/24/18 bupropion HCl XL 300 mg 24 hr 300 mg PO DAILY #30 tab-cap 11/24/18 01/03/19 tablet, extended release azithromycin See Rx Instructions .ROUTE 01/03/19 .COMPLEX #6 tab prednisone 60 mg PO DAILY 5 Days #15 tab 01/03/19 Previous Rx's Medication Instructions Recorded Prenatabs Rx 1 tab-cap PO DAILY #90 tab-cap 05/26/18 albuterol sulfate 1 puff IH Q6H PRN #8 gm 08/16/18 inhalational spacing device #1 each 08/19/18 bupropion HCl XL 300 mg 24 hr 300 mg PO DAILY #30 tab-cap 11/24/18 tablet, extended release azithromycin See Rx Instructions .ROUTE 01/03/19 .COMPLEX #6 tab prednisone 60 mg PO DAILY 5 Days #15 tab 01/03/19 Allergies Allergy/AdvReac Type Severity Reaction Status Date / Time No Known Allergies Allergy Unverified 01/03/19 16:19 General Stated Complaint: RespSymp FELIZ: 3 Review of Systems Review of Systems All systems reviewed & are unremarkable except as noted in HPI and below Constitutional Denies chills and Denies fever(s) ENT Denies change in voice Cardiovascular Denies chest pain Gastrointestinal Denies abdominal pain, Denies nausea and Denies vomiting Musculoskeletal Denies joint swelling Integumentary/Breasts Denies rash Psychiatric Denies depression PFSH Medical History Major depressive disorder with current active episode (Chronic 06/22/18) Social History household members: family highest education level completed: Associate degree: occupational, technical, vocational program what type of physical activity do you participate in: none Smoking and Tabacco status: Current every day alcohol intake: current substance use type: marijuana and other details: COCAINE/CRACK (VERY RARELY AT A [employer]),OPIATES, RX FOR BACK PAIN, NOT HERS Seatbelt use: sometimes Exam Const General: no acute distress Orientation: alert HENMT Head: normal to inspection Ears: external ears normal General nose exam: external nose normal Mouth: moist mucous membranes Eyes General: appearance normal, both eyes and all related structures Neck Neck: normal visual inspection Resp Effort & Inspection: normal respiratory effort and able to speak in complete sentences Cardio Rate: regular rate Skin General skin exam: no rashes or lesions noted Neuro General: alert and oriented x3 Extrem General: normal to inspection Psych Mental Status: mental status grossly normal Course Vital Signs Temperature 36.6 C 01/03/19 16:12 Pulse 73 01/03/19 16:12 Respiratory Rate 20 01/03/19 16:12 Blood Pressure 136/59 L 01/03/19 16:12 Pulse Oximetry 99 01/03/19 16:12 Temperature 36.6 C 01/03/19 16:12 Temperature Source Temporal Artery Scan 01/03/19 16:12 Pulse 73 01/03/19 16:12 Respiratory Rate 20 01/03/19 16:12 Respiratory Effort Non-Labored 01/03/19 16:18 Blood Pressure 136/59 L 01/03/19 16:12 Blood Pressure Position Sitting 01/03/19 16:12 Pulse Oximetry 99 01/03/19 16:12 Oxygen Delivery Method Room Air 01/03/19 16:12 Oxygen Flow Rate 0 01/03/19 16:12
--- NOTE | 2019-01-03 16:31 | ED.GENADUL_ITS ---
Discharge Plan Disposition Patient Disposition: HOME Condition: Stable Discharge Details Chief Complaint: RespSymp Clinical Impression: RAD (reactive airway disease) Primary Care Provider: Meño Goodman ED Provider: Jose Martin Reynoso Home Meds and New Rx's Prescriptions: New prednisone 20 mg tablet 60 mg PO DAILY 5 Days Qty: 15 RF: 0 azithromycin 250 mg tablet See Rx Instructions .ROUTE .COMPLEX Qty: 6 RF: 0 No Action Aerochamber MV spacer .ROUTE .MEDSUPPLY Qty: 1 RF: 0 bupropion HCl 300 mg tablet extended release 24 hr 300 mg PO DAILY Qty: 30 RF: 11 Prenatabs Rx 1 EACH tablet 1 tab-cap PO DAILY Qty: 90 RF: 3 albuterol sulfate 90 mcg/actuation HFA aerosol inhaler 1 puff IH Q6H PRN (Reason: bronchospasm) Qty: 8 RF: 0 Discharge Instructions Instructions: Reactive Airways Disease (ED) Additional Instructions: I suspect you have reactive airway disease and have a viral illness. Follow up with your primary care provider in 1-2 weeks. You should discuss having formal testing for asthma as well IF you have high fevers or feel you are significantly more ill return to the emergency department if you feel you are not improving in 2 days fill the antibiotic Medical Decision Making 28 yo female who denies any chronic medical problems, smoker, rare alcohol use and denies drug use, comes in with cc of intermittent cough for 4-5 months. Has not had any recent travel and denies chest asmita, fevers, chills, rashes. She feels fatigued but has felt this way for months. She has no chest asmita or pressu re to suggest acs. She is speaking in full sentences on my exam in no distress. She has clear lungs throughout other than bilateral apical wheezing. She was given an inhaler and abx for pna per pt last fall but doesn't have an inhaler right now and hasn't seen her pcp due to insurance reasons. I suspect she has RAD and is worsened by likely smoking and viral uri. No fevers and apperas well with stable vitals so do not feel xray indicated. I am going to send her home with an inhaler and prescription for prednisone. She requests an abx and I advised it is likely viral but she still would like it. I advised if she is not better in 2-3 days to fill the prescription and return if worsening. She declines assistance with insurance at this time. She will return if worsening Differential Diagnosis asthma, copd, uri, pna, bronchitis HPI General Mode of arrival: ambulatory . Date/Time Provider Initiated Documentation: 01/03/19 16:14 . Limitations to Documentation: no limitations . Information obtained by: patient . History of Present Illness 28 year old F presents to the emergency department with the chief complaint of cough, described as moderate, with intensity rated at 5. Patient started experiencing this month(s) (4) and it has been intermittent. No relieving factors improve symptom(s), No exacerbating factors reported . Related Data Home Medications Medication Instructions Recorded Confirmed Prenatabs Rx 1 tab-cap PO DAILY #90 tab-cap 18 01/03/19 albuterol sulfate 1 puff IH Q6H PRN #8 gm 08/16/18 12/26/18 inhalational spacing device #1 each 08/19/18 11/24/18 bupropion HCl XL 300 mg 24 hr 300 mg PO DAILY #30 tab-cap 11/24/18 01/03/19 tablet, extended release azithromycin See Rx Instructions .ROUTE 01/03/19 .COMPLEX #6 tab prednisone 60 mg PO DAILY 5 Days #15 tab 01/03/19 Previous Rx's Medication Instructions Recorded Prenatabs Rx 1 tab-cap PO DAILY #90 tab-cap 05/26/18 albuterol sulfate 1 puff IH Q6H PRN #8 gm 08/16/18 inhalational spacing device #1 each 08/19/18 bupropion HCl XL 300 mg 24 hr 300 mg PO DAILY #30 tab-cap 11/24/18 tablet, extended release azithromycin See Rx Instructions .ROUTE 01/03/19 .COMPLEX #6 tab prednisone 60 mg PO DAILY 5 Days #15 tab 01/03/19 Allergies Allergy/AdvReac Type Severity Reaction Status Date / Time No Known Allergies Allergy Unverified 01/03/19 16:19 General Stated Complaint: RespSymp FELIZ: 3 Review of Systems Review of Systems All systems reviewed & are unremarkable except as noted in HPI and below Constitutional Denies chills and Denies fever(s) ENT Denies change in voice Cardiovascular Denies chest pain Gastrointestinal Denies abdominal pain, Denies nausea and Denies vomiting Musculoskeletal Denies joint swelling Integumentary/Breasts Denies rash Psychiatric Denies depression [facility] Medical History Major depressive disorder with current active episode (Chronic 06/22/18) Social History household members: family highest education level completed: Associate degree: occupational, technical, vocational program what type of physical activity do you participate in: none Smoking and Tabacco status: Current every day alcohol intake: current substance use type: marijuana and other details: COCAINE/CRACK (VERY RARELY AT [place] [employer]),OPIATES, RX FOR BACK PAIN, NOT HERS Seatbelt use: sometimes Exam Const General: no acute distress Orientation: alert HENMT Head: normal to inspection Ears: external ears normal General nose exam: external nose normal Mouth: moist mucous membranes Eyes General: appearance normal, both eyes and all related structures Neck Neck: normal visual inspection Resp Effort & Inspection: normal respiratory effort and able to speak in complete sentences Cardio Rate: regular rate Skin General skin exam: no rashes or lesions noted Neuro General: alert and oriented x3 Extrem General: normal to inspection Psych Mental Status: mental status grossly normal Course Vital Signs Temperature 36.6 C 01/03/19 16:12 Pulse 73 01/03/19 16:12 Respiratory Rate 20 01/03/19 16:12 Blood Pressure 136/59 L 01/03/19 16:12 Pulse Oximetry 99 01/03/19 16:12 Temperature 36.6 C 01/03/19 16:12 Temperature Source Temporal Artery Scan 01/03/19 16:12 Pulse 73 01/03/19 16:12 Respiratory Rate 20 01/03/19 16:12 Respiratory Effort Non-Labored 01/03/19 16:18 Blood Pressure 136/59 L 01/03/19 16:12 Blood Pressure Position Sitting 01/03/19 16:12 Pulse Oximetry 99 01/03/19 16:12 Oxygen Delivery Method Room Air 01/03/19 16:12 Oxygen Flow Rate 0 01/03/19 16:12
[2019-01-03] MEDS: Albuterol HFA 8 GM 60 PUFF INH IH (16:35)
== END 2019-01-03 16:42 | disposition home or self-care (01) ==
PROVIDERS: Emergency Provider Emergency Medicine; PCP Family Medicine
DX: J45.909 Unspecified asthma, uncomplicated (principal); F17.210 Nicotine dependence, cigarettes, uncomplicated
CPT/HCPCS: 99283

== ENCOUNTER 2019-03-09 09:26 | Emergency (ER) | payer MEDICAID, SELFPAY ==
--- NOTE | 2019-03-09 09:32 | W.ED.GENAD ---
Discharge Plan Disposition Patient Disposition: HOME Condition: Stable Discharge Details Chief Complaint: Anxiety Clinical Impression: Anxiety Primary Care Provider: Meño Goodman ED Provider: Jose Martin Reynoso Home Meds and New Rx's Prescriptions: New lorazepam 1 mg tablet 1 mg PO BID-TID PRN (Reason: anxiety) Qty: 10 RF: 0 No Action Aerochamber MV spacer .ROUTE .MEDSUPPLY Qty: 1 RF: 0 bupropion HCl 300 mg tablet extended release 24 hr 300 mg PO DAILY Qty: 30 RF: 11 Prenatabs Rx 1 EACH tablet 1 tab-cap PO DAILY Qty: 90 RF: 3 albuterol sulfate 90 mcg/actuation HFA aerosol inhaler 1 puff IH Q6H PRN (Reason: bronchospasm) Qty: 8 RF: 0 Discharge Instructions Instructions: Anxiety (ED) Additional Instructions: Use the lorazepam as needed for your anxiety if you feel the symptoms are severe, understanding any medicine can cause potential harm to the fetus. follow up with women's wellness and also your provider you see for your anxiety Medical Decision Making 28 yo female with hx of anxiety and migraines who had a recent home positive test and is here primarily because she states her anxiety is out of control. She was told she can't take wellbutrin and her anxiety has been out of control. She denies abdominal pain or vaginal bleeding, has a mild headache without fevers or meningismus. She is demanding something for her anxiety and I advised there is no proven 100% safe medicine for anxiety and after explaining risks and benefits of lorazepam she wants to take this medicine and have a prn prescription until she can see her prescriber. she will f/u with women's wellness and her pcp, return precautions given Differential Diagnosis anxiety, panic attack HPI General Mode of arrival: ambulatory. Date/Time Provider Initiated Documentation: 03/09/19 09:32. Limitations to Documentation: no limitations. Information obtained by: patient. History of Present Illness 28 year old F presents to the emergency department with the chief complaint of anxiety, described as severe, Patient started experiencing this day(s) (1) and it has been constant. No relieving factors improve symptom(s), No exacerbating factors reported . Patient did receive the following treatments prior to arrival, none Related Data Home Medications Medication Instructions Recorded Confirmed Prenatabs Rx 1 tab-cap PO DAILY #90 tab-cap 05/26/18 03/09/19 albuterol sulfate 1 puff IH Q6H PRN #8 gm 08/16/18 03/09/19 inhalational spacing device #1 each 08/19/18 11/24/18 bupropion HCl XL 300 mg 24 hr 300 mg PO DAILY #30 tab-cap 11/24/18 03/09/19 tablet, extended release lorazepam 1 mg PO BID-TID PRN #10 tab 03/09/19 Previous Rx's Medication Instructions Recorded Prenatabs Rx 1 tab-cap PO DAILY #90 tab-cap 05/26/18 albuterol sulfate 1 puff IH Q6H PRN #8 gm 08/16/18 inhalational spacing device #1 each 08/19/18 bupropion HCl XL 300 mg 24 hr 300 mg PO DAILY #30 tab-cap 11/24/18 tablet, extended release lorazepam 1 mg PO BID-TID PRN #10 tab 03/09/19 Allergies Allergy/AdvReac Type Severity Reaction Status Date / Time No Known Allergies Allergy Unverified 03/09/19 09:38 General FELIZ: 3 Review of Systems Review of Systems All systems reviewed & are unremarkable except as noted in HPI and below Constitutional Denies chills, Denies fever(s) and Denies weakness Cardiovascular Denies chest pain and Denies dyspnea Respiratory Denies cough and Denies dyspnea Gastrointestinal Denies abdominal pain, Denies nausea and Denies vomiting Musculoskeletal Denies joint swelling Neurologic Denies weakness Endocrine Denies heat intolerance PFSH Social History Smoking/Tobacco Use Status: Current every day Tobacco Type: cigarettes Alcohol Intake: current Alcohol Intake frequency: holidays/special occasions only Drug use: Never Substance use type: marijuana and other Details: COCAINE/CRACK (VERY RARELY AT A [employer]),OPIATES, RX FOR BACK PAIN, NOT HERS Household members: family What type of physical activity do you participate in: none Seatbelt use: sometimes Do you feel safe in your relationship?: Yes Exam Const General: anxious Orientation: alert HENMT Head: normal to inspection Ears: external ears normal General nose exam: external nose normal Mouth: moist mucous membranes Eyes General: appearance normal, both eyes and all related structures Neck Neck: normal visual inspection Resp Effort & Inspection: normal respiratory effort and able to speak in complete sentences Cardio Rate: regular rate Skin General skin exam: no rashes or lesions noted Neuro General: alert and oriented x3 Extrem General: normal to inspection Psych Mental Status: mental status grossly normal
[2019-03-09 09:33] VITALS: BP 136/66; PULSE 80; RESP 16; TEMP 37; O2SAT 99
[2019-03-09 09:48] VITALS: RESP 16
--- NOTE | 2019-03-09 09:49 | ED.GENADUL_ITS ---
Discharge Plan Disposition Patient Disposition: HOME Condition: Stable Discharge Details Chief Complaint: Anxiety Clinical Impression: Anxiety Primary Care Provider: Meño Goodman ED Provider: Jose Martin Reynoso Home Meds and New Rx's Prescriptions: New lorazepam 1 mg tablet 1 mg PO BID-TID PRN (Reason: anxiety) Qty: 10 RF: 0 No Action Aerochamber MV spacer .ROUTE .MEDSUPPLY Qty: 1 RF: 0 bupropion HCl 300 mg tablet extended release 24 hr 300 mg PO DAILY Qty: 30 RF: 11 Prenatabs Rx 1 EACH tablet 1 tab-cap PO DAILY Qty: 90 RF: 3 albuterol sulfate 90 mcg/actuation HFA aerosol inhaler 1 puff IH Q6H PRN (Reason: bronchospasm) Qty: 8 RF: 0 Discharge Instructions Instructions: Anxiety (ED) Additional Instructions: Use the lorazepam as needed for your anxiety if you feel the symptoms are sev ere, understanding any medicine can cause potential harm to the fetus. follow up with women's wellness and also your provider you see for your anxiety Medical Decision Making 28 yo female with hx of anxiety and migraines who had a recent home positive test and is here primarily because she states her anxiety is out of control. She was told she can't take wellbutrin and her anxiety has been out of control. She denies abdominal pain or vaginal bleeding, has a mild headache without fevers or meningismus. She is demanding something for her anxiety and I advised there is no proven 100% safe medicine for anxiety and after explaining risks and benefits of lorazepam she wants to take this medicine and have a prn prescription until she can see her prescriber. she will f/u with women's wellness and her pcp, return precautions given Differential Diagnosis anxiety, panic attack HPI General Mode of arrival: ambulatory . Date/Time Provider Initiated Documentation: 03/09/19 09:32 . Limitations to Documentation: no limitations . Information obtained by: patient . History of Present Illness 28 year old F presents to the emergency department with the chief complaint of anxiety, described as severe, Patient started experiencing this day(s) (1) and it has been constant. No relieving factors improve symptom(s), No exacerbating factors reported . Patient did receive the following treatments prior to arrival, none Related Data Home Medications Medication Instructions Recorded Confirmed Prenatabs Rx 1 tab-cap PO DAILY #90 tab-cap 05/26/18 03/09/19 albuterol sulfate 1 puff IH Q6H PRN #8 gm 08/16/18 03/09/19 inhalational spacing device #1 each 08/19/18 11/24/18 bupropion HCl XL 300 mg 24 hr 300 mg PO DAILY #30 tab-cap 11/24/18 03/09/19 tablet, extended release lorazepam 1 mg PO BID-TID PRN #10 tab 03/09/19 Previous Rx's Medication Instructions Recorded Prenatabs Rx 1 tab-cap PO DAILY #90 tab-cap 05/26/18 albuterol sulfate 1 puff IH Q6H PRN #8 gm 08/16/18 inhalational spacing device #1 each 08/19/18 bupropion HCl XL 300 mg 24 hr 300 mg PO DAILY #30 tab-cap 11/24/18 tablet, extended release lorazepam 1 mg PO BID-TID PRN #10 tab 03/09/19 Allergies Allergy/AdvReac Type Severity Reaction Status Date / Time No Known Allergies Allergy Unverified 03/09/19 09:38 General FELIZ: 3 Review of Systems Review of Systems All systems reviewed & are unremarkable except as noted in HPI and below Constitutional Denies chills, Denies fever(s) and Denies weakness Cardiovascular Denies chest pain and Denies dyspnea Respiratory Denies cough and Denies dyspnea Gastrointestinal Denies abdominal pain, Denies nausea and Denies vomiting Musculoskeletal Denies joint swelling Neurologic Denies weakness Endocrine Denies heat intolerance PFSH Social History Smoking/Tobacco Use Status: Current every day Tobacco Type: cigarettes Alcohol Intake: current Alcohol Intake frequency: holidays/special occasions only Drug use: Never Substance use type: marijuana and other Details: COCAINE/CRACK (VERY RARELY AT A [employer]),OPIATES, RX FOR BACK PAIN, NOT HERS Household members: family What type of physical activity do you participate in: none Seatbelt use: sometimes Do you feel safe in your relationship?: Yes Exam Const General: anxious Orientation: alert HENMT Head: normal to inspection Ears: external ears normal General nose exam: external nose normal Mouth: moist mucous membranes Eyes General: appearance normal, both eyes and all related structures Neck Neck: normal visual inspection Resp Effort & Inspection: normal respiratory effort and able to speak in complete sentences Cardio Rate: regular rate Skin General skin exam: no rashes or lesions noted Neuro General: alert and oriented x3 Extrem General: normal to inspection Psych Mental Status: mental status grossly normal
[2019-03-09] MEDS: LORazepam 1 MG TAB PO (09:57)
--- NOTE | 2019-03-09 18:33 | NUR.NOTE ---
Nursing Note: Faxed referral to [facility] for follow up. Ana Maria Arenas.
== END 2019-03-09 10:16 | disposition home or self-care (01) ==
LOC: ER 10:21
PROVIDERS: Emergency Provider Emergency Medicine; PCP Family Medicine
DX: F41.9 Anxiety disorder, unspecified (principal); R51 Headache
CPT/HCPCS: 81025; 99283

== ENCOUNTER 2019-03-22 09:46 | Outpatient (CLI) | payer MEDICAID, SELFPAY ==
--- NOTE | 2019-03-22 09:57 | DI.US_ITS ---
Predicted Gestational Age: Indication/History:? DATES, SURVEY,Z33.1 Wks Range: to Prior US done on: Determined by: First US LMP History EDC by prior US: For multiple gestations: Baby PLACENTA: Grade: 0-1 Location: Anterior Posterior X PRESENTATION: RT LT LOW LYING PREVIA Cephalic Trans (Head RT LT ) Varied X Breech BIOMETRY: Anatomy Identified: BPD: 43 mm 19.0 wks 4 chamber Heart X Heart Rate 152 BPM HC: 166 mm 19.2 wks LVOT X Post Fossa X AC: 149 mm 20.1 wks RVOT X Ventricles X FL: 30 mm 19.2 wks Stomach X Nose X Bladder X Lips X Cisterna Magna: 3.4mm CI: 83 Kidneys X Palate X Cerebellum: 1.92 mm 3 vessel cord X Spine X EFW: grms % Cord Insertion X Diaphragm X NS= not seen Composite Age (US) 19.3 wks Many abnormalities cannot be diagnosed. A normal exam does not exclude congenital abnormality. EDC by US 08/13/19 Amniotic Fluid Index: Normal COMMENTS: RUQ: LUQ: RLQ: LLQ: Total: cm Biophysical Profile: Score 0/2 WILMAN (>2cm) Respirations (>30 sec) Body flexion/extension Extremity flexion/extension TOTAL SCORE There is a single living intrauterine gestation. Estimated sonographic age is 19 weeks 3 days. No or placental abnormalities are identified.
== END 2019-03-22 10:06 ==
PROVIDERS: PCP Family Medicine; Visit Provider Obstetrics & Gynecology
DX: Z34.92 Encounter for supervision of normal pregnancy, unspecified, second trimester (principal); Z11.3 Encounter for screening for infections with a predominantly sexual mode of transmission; Z12.4 Encounter for screening for malignant neoplasm of cervix; G47.00 Insomnia, unspecified; E03.9 Hypothyroidism, unspecified; E66.9 Obesity, unspecified; F32.9 Major depressive disorder, single episode, unspecified; R53.83 Other fatigue
CPT/HCPCS: 36415; 80053; 80307; 85027; 87491; 87591; 88142; 76805; 82105; 83036; 84443; 87086; 87624

== ENCOUNTER 2019-03-22 15:31 | Outpatient (CLI) | payer MEDICAID, SELFPAY ==
[2019-03-22 16:07] LABS: Kit/Specimen SENT
[2019-03-22 16:41] LABS: HCT 36.8 % (36.0-46.0); HGB 12.3 g/dL (12.0-15.5); Mean Corp. HGB Concentration 33.4 g/dL (32.0-36.0); Mean Corpuscular Hemoglobin 29.4 pg (27.0-33.0); Mean Platelet Volume 11.2 fL (8.0-11.0); Platelet Count 246 x1000/uL (130-400); RBC 4.18 m/cumm (4.00-5.20); RBC Distribution Width 13.4 % (11.7-14.6); White Blood Cell Count 11.44 k/cumm (4.4-10.8)
[2019-03-22 16:54] LABS: ALT 18 U/L (12-78); AST 9 U/L (15-37); Albumin 3.1 g/dL (3.4-5.0); Alkaline Phosphatase 46 U/L (46-116); Anion Gap 10.4 mmol/L (3-11); BUN 8 mg/dL (7-18); Bilirubin, Total 0.2 mg/dL (0.2-1.0); CO2 23.6 mmol/L (21.0-32.0); CREATININE 0.68 mg/dL (0.55-1.02); Calcium 9.1 mg/dL (8.5-10.1); Chloride 102 mmol/L (98-107); Glucose 98 mg/dL (70-100); Potassium 3.6 mmol/L (3.5-5.1); Sodium 136 mmol/L (136-145); TSH (W/Ref FT4) 0.83 uIU/mL (0.358-3.74); Total Protein 6.7 g/dL (6.4-8.2)
[2019-03-22 17:00] LABS: Hemoglobin A1C 5.1 % (4.5-6.2)
[2019-03-23 17:21] LABS: AFP 34.8 ng/mL; Calculated age at EDD 29 years; GA used in risk estimate Scan estimate; IVF Pregnancy No; Initial or repeat testing Initial testing; Insulin dependent diabetes No; Maternal Weight 290 lbs; Number of Fetuses 1; Physician Phone Number 802-748-7300; Prev Pregnancy w/NTD No; RECOMMENDED FOLLOW UP None.; Results Summary Normal risk
== END 2019-03-22 15:51 ==
PROVIDERS: PCP Family Medicine; Visit Provider Advanced Practice Midwife
DX: Z34.92 Encounter for supervision of normal pregnancy, unspecified, second trimester (principal); G47.00 Insomnia, unspecified; E03.9 Hypothyroidism, unspecified; E66.9 Obesity, unspecified; F32.9 Major depressive disorder, single episode, unspecified; R53.83 Other fatigue
CPT/HCPCS: 36415; 80053; 85027; 82105; 83036; 84443

== ENCOUNTER 2019-03-22 16:18 | Outpatient (REF) | payer MEDICAID, SELFPAY ==
--- NOTE | 2019-03-22 15:10 | PAPFT_PTH ---
PATIENT: Chanelle Vanegas LOC: [facility] U#:[id number] AGE/SX: 28/F ROOM: RE03/22/[address]: Roni Jackson RN : 1990 BED: DIS: 03/22/2019 SPEC #: [id number] RECD: 03/22/19 17:35 STATUS: DIOGENES REJose #: [id number] CHAPIN: 03/22/19 15:[address]: Roni Jackson DEPT: [facility] Cytology RECD BY: Maria Alejandra Jewell ENTERED: 03/22/19 17:36 SP TYPE: PAPFT OTHR DR: Meño Goodman MD Tissues: 1 - CX/ENDOCX FOR PAP SMEARS Procedures: PAP THIN PREP/UVM Screening HPV DNA PROBE Comments: [id number]
[2019-03-22 19:01] LABS: *AMPHETAMINES SCREEN URINE Negative (Negative); *BARBITURATES SCREEN URINE Negative (Negative); *BENZODIAZEPINES SCREEN URINE Negative (Negative); Cannabinoids THC Negative (Negative); Cocaine Screen,Urine Negative (Negative); METHADONE URINE SCREEN Negative (Negative); OPIATES URINE SCREEN Negative (Negative)
[2019-03-22 19:16] LABS: Tricyclic Antidepressants Negative (Negative)
[2019-03-24 14:42] LABS: Chlamydia Result Negative; GC Result Negative; Specimen Description CERVIX
[2019-03-27 09:17] LABS: Buprenorphine Negative; Norbuprenorphine Negative
== END 2019-03-22 16:38 ==
LOC: LBN 16:18
PROVIDERS: PCP Family Medicine; Visit Provider Advanced Practice Midwife
DX: Z34.91 Encounter for supervision of normal pregnancy, unspecified, first trimester (principal); Z11.3 Encounter for screening for infections with a predominantly sexual mode of transmission; Z12.4 Encounter for screening for malignant neoplasm of cervix
CPT/HCPCS: 80307; 87491; 87591; 88142; 87086

== ENCOUNTER 2019-04-06 10:17 | Outpatient (CLI) | payer MEDICAID, SELFPAY ==
[2019-04-06 11:51] LABS: Glucose,1 Hr (Glucola) 169 mg/dL (80-140)
== END 2019-04-06 10:37 ==
PROVIDERS: PCP Family Medicine; Visit Provider Advanced Practice Midwife
DX: Z34.92 Encounter for supervision of normal pregnancy, unspecified, second trimester (principal)
CPT/HCPCS: 36415; 82950

== ENCOUNTER 2019-04-06 14:34 | Outpatient (CLI) | payer MEDICAID, SELFPAY | END 2019-04-06 14:54 | PROVIDERS: PCP Family Medicine; Visit Provider Advanced Practice Midwife | DX: Z01.818 Encounter for other preprocedural examination (principal) ==

== ENCOUNTER 2019-04-14 02:02 | Outpatient (CLI) | payer MEDICAID, SELFPAY ==
[2019-04-14 09:27] LABS: Glucose 1 Hour 197 mg/dL
[2019-04-14 11:27] LABS: Glucose 3 Hour 72 mg/dL
== END 2019-04-14 02:22 ==
PROVIDERS: PCP Family Medicine; Visit Provider Advanced Practice Midwife
DX: Z34.92 Encounter for supervision of normal pregnancy, unspecified, second trimester (principal)
CPT/HCPCS: 36410; 82951

== ENCOUNTER 2019-04-24 13:40 | Outpatient (CLI) | payer MEDICAID, SELFPAY ==
--- NOTE | 2019-04-20 08:45 | DIABASSESS_ITS ---
DESCRIPTION/ASSESSMENT: Appreciate diabetes consult for Chanelle Vanegas who is here with seeing her nuclear medicine officer. She had high fasting blood lilly gar on 3 hour GTT. She had gestational diabetes iwth her previous a few years ago. She states she has a glucometer and does not need a review regarding its use. She is about 23 weeks. She does not want to talk about how she eats, but states it is bad. 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 INTERVENTION: She is given the Gestational Guidelines to review at home as she does not want to review them today. Random, stated fasting blood sugar 110 this morning. Reviewed testing regimen. She offers little eye contact and states she does not want to talk about this now. ACTION PLAN: She knows to call with questions or blood sugars out of range. Individual MNT __1__ units billed TIME IN: 844 OUT: 904 No DM group education series being offered at this time.
== END 2019-04-24 14:00 ==
PROVIDERS: PCP Family Medicine; Visit Provider Dietitian, Registered
DX: O24.419 Gestational diabetes mellitus in pregnancy, unspecified control (principal); Z3A.23 23 weeks gestation of pregnancy; Z71.3 Dietary counseling and surveillance
CPT/HCPCS: 97802

== ENCOUNTER 2019-05-30 01:20 | Outpatient (CLI) | payer MEDICAID, SELFPAY ==
--- NOTE | 2019-05-30 13:19 | DI.US_ITS ---
SYMPTOMS/DIAGNOSIS: GDM POORLY CONTROLLED, Z34.90, LIMITED OB ULTRASOUND: There is a single living intrauterine gestation. Estimated sonographic age is 29 weeks 2 days. The fetus was in the transverse lie with the head to the right. heart rate was 139 bpm. anatomic evaluation was not performed at this time. Amniotic fluid index is 11.3 cm. Visually the amniotic fluid is within normal limits. The placenta is posterior without evidence of previa. Estimated weight is 1410 grams which is in the 46th percentile. IMPRESSION: Single living intrauterine gestation. Estimated sonographic age is 29 weeks 2 days. Predicted Gestational Age: Indication/History: 29+2 Wks Range: 28+2 to 30+2 Prior US done on: Determined by: First US LMP History EDC by prior US: 08/13/19 For multiple gestations: Baby PLACENTA: Grade: 0-I Location: Anterior Posterior X PRESENTATION: RT LT LOW LYING PREVIA Cephalic Trans X (Head RT) X Varied Breech BIOMETRY: Anatomy Identified: BPD: 70 mm 28 wks 4 chamber Heart X Heart Rate 139 BPM HC: 275 mm 30 wks LVOT Post Fossa AC: 259 mm 30 wks RVOT Ventricles FL: 55 mm 29 ks Stomach Nose Bladder Lips Cisterna Magna: mm CI: Kidneys Palate Cerebellum: mm 3 vessel cord Spine EFW: 1410 grms 46% Cord Insertion NS= not seen Composite Age (US) 29+2 wks Many abnormalities cannot be diagnosed. A normal exam does not exclude congenital abnormality. EDC by US 08/13/19 Amniotic Fluid Index: Normal COMMENTS: 3lbs 2oz RUQ: 1.8 LUQ: 3.6 RLQ: 3.2 LLQ: 2.7 Total: 11.3 cm Biophysical Profile: Score 0/2 WILMAN (>2cm) Respirations (>30 sec) Body flexion/extension Extremity flexion/extension TOTAL SCORE
== END 2019-05-30 01:40 ==
PROVIDERS: PCP Nurse Practitioner Family; Visit Provider Obstetrics & Gynecology
DX: Z34.93 Encounter for supervision of normal pregnancy, unspecified, third trimester (principal); O24.419 Gestational diabetes mellitus in pregnancy, unspecified control
CPT/HCPCS: 76816

== ENCOUNTER 2019-06-18 14:41 | Outpatient (CLI) | payer MEDICAID, SELFPAY | END 2019-06-18 15:01 | PROVIDERS: PCP Nurse Practitioner Family; Visit Provider Obstetrics & Gynecology | DX: O36.8130 Decreased fetal movements, third trimester, not applicable or unspecified (principal) | CPT/HCPCS: 59025 ==

== ENCOUNTER 2019-06-30 07:00 | Outpatient (CLI) | payer MEDICAID, SELFPAY ==
--- NOTE | 2019-06-30 08:58 | DI.US_ITS ---
SYMPTOM/DIAGNOSIS: FOLLOW UP GROWTH O24.419, GESTATIONAL DIABETES OB ULTRASOUND: 06/29 OB ultrasound was performed utilizing 3rd trimester protocol. biometry is consistent with gestational age of 34 weeks 5 days and EDC of 08/06/19. The estimated weight is 2543 grams which is at the 78th percentile for predicted gestational age. Placenta is posterior with no evidence of placenta previa. cardiac activity observed at a rate of 145 BPM. The amniotic fluid index is 13 and there is visually a normal quantity of amniotic fluid. Fetus is in the breech presentation. Predicted Gestational Age: Indication/History: Follow up growth; gestational diabetes 33 +5 Wks Range: 32 +5 to 34 +5 Prior US done on: Determined by: First US LMP History EDC by prior US: 08/13/19 For multiple gestations: Baby PLACENTA: Grade: I-II Location: xx Posterior PRESENTATION: RT LT LOW LYING PREVIA Cephalic Trans (Head RT LT ) Varied Breech XX BIOMETRY: Anatomy Identified: BPD: 83 mm 32 +2 wks 4 chamber Heart Heart Rate 145 BPM HC: 306 mm 34 +1 wks LVOT Post Fossa AC: 302 mm 34 +1 Wks RVOT Ventricles FL: 73 mm 37 +1 wks Stomach Nose Bladder Lips Cisterna Magna: mm CI: 77 Kidneys Palate Cerebellum: mm 3 vessel cord Spine EFW: 2543 grms 78 % Cord Insertion NS= not seen Composite Age (US) 34 +5 wks Many abnormalities cannot be diagnosed. A normal exam does not exclude congenital abnormality. EDC by US 08/06/19 Amniotic Fluid Index: Oligo Normal Polyhydramnios COMMENTS: RUQ: 4.2 LUQ: 2.1 RLQ: 2.9 LLQ: 4.1 Total: 13.3 cm Biophysical Profile: Score 0/2 WILMAN (>2cm) Respirations (>30 sec) Body flexion/extension Extremity flexion/extension TOTAL SCORE
== END 2019-06-30 07:20 ==
PROVIDERS: PCP Nurse Practitioner Family; Visit Provider Obstetrics & Gynecology
DX: O24.419 Gestational diabetes mellitus in pregnancy, unspecified control (principal); O32.1XX1 Maternal care for breech presentation, fetus 1
CPT/HCPCS: 76816

== ENCOUNTER 2019-07-11 11:10 | Outpatient (CLI) | payer MEDICAID, SELFPAY ==
[2019-07-11 12:22] LABS: Abs Immature Grans 0.08 k/cumm (0.0-0.09); Absolute Basophil Count 0.01 k/cumm (0.0-0.2); Absolute Eosinophil Count 0.12 k/cumm (0.0-0.7); Absolute Lymphocyte Count 1.51 k/cumm (1.2-3.4); Absolute Monocyte Count 0.56 k/cumm (0.11-0.7); Absolute Neutrophil Count 7.05 k/cumm (1.2-6.7); Basophils % 0.1; Eosinophils % 1.3; HCT 35.9 % (36.0-46.0); HGB 11.9 g/dL (12.0-15.5); Immature Grans % 0.9; Lymphocytes % 16.2; Mean Corp. HGB Concentration 33.1 g/dL (32.0-36.0); Mean Corpuscular Hemoglobin 30.4 pg (27.0-33.0); Mean Corpuscular Volume 91.8 fL (80-95); Mean Platelet Volume 10.4 fL (8.0-11.0); Neutrophils % 75.5; Platelet Count 255 x1000/uL (130-400); RBC 3.91 m/cumm (4.00-5.20); RBC Distribution Width 13.6 % (11.7-14.6); White Blood Cell Count 9.33 k/cumm (4.4-10.8)
[2019-07-11 12:56] LABS: ALT 27 U/L (14-59); AST 12 U/L (15-37); Albumin 2.7 g/dL (3.4-5.0); Alkaline Phosphatase 98 U/L (46-116); Anion Gap 9.8 mmol/L (3-11); BUN 8 mg/dL (7-18); Bilirubin, Total 0.5 mg/dL (0.2-1.0); CO2 25.2 mmol/L (21.0-32.0); Calcium 8.6 mg/dL (8.5-10.1); Chloride 103 mmol/L (98-107); Glucose 87 mg/dL (70-100); Sodium 138 mmol/L (136-145); Total Protein 6.9 g/dL (6.4-8.2)
[2019-07-11 13:04] LABS: Prot/Crea Ur Ratio 0.27
== END 2019-07-11 11:30 ==
PROVIDERS: PCP Nurse Practitioner Family; Visit Provider Obstetrics & Gynecology
DX: O24.414 Gestational diabetes mellitus in pregnancy, insulin controlled (principal); Z3A.35 35 weeks gestation of pregnancy; Z79.4 Long term (current) use of insulin; Z36.85 Encounter for antenatal screening for Streptococcus B
CPT/HCPCS: 59025; 36415; 80053; 82565; 84156; 85025; 87081

== ENCOUNTER 2019-07-14 00:40 | Outpatient (CLI) | payer MEDICAID, SELFPAY ==
--- NOTE | 2019-07-14 13:04 | DI.US_ITS ---
SYMPTOMS/DIAGNOSIS: HIGH RISK , 013.9, GESTATIONAL HYPERTENSION BIOPHYSICAL PROFILE ULTRASOUND: The fetus is in cephalic position. The placenta is posterior. cardiac activity is demonstrated at 140 bpm. The amniotic fluid index appears normal at 16.0. The biophysical profile is 6 out of 8. No respirations were observed. IMPRESSION: Biophysical profile 6 out of 8. Predicted Gestational Age: Indication/History: 35+5 Wks Range: to Prior US done on: Determined by: First US LMP History EDC by prior US: 08/13/19 For multiple gestations: Baby PLACENTA: Grade: I Location: Anterior Posterior X PRESENTATION: RT LT LOW LYING PREVIA Cephalic X Trans (Head RT LT ) Varied Breech BIOMETRY: Anatomy Identified: BPD: mm wks 4 chamber Heart Heart Rate 140 BPM HC: mm wks LVOT Post Fossa AC: mm wks RVOT Ventricles FL: mm wks Stomach Nose Bladder Lips Cisterna Magna: mm CI: Kidneys Palate Cerebellum: mm 3 vessel cord Spine EFW: grms % Cord Insertion NS= not seen Composite Age (US) wks Many abnormalities cannot be diagnosed. A normal exam does not exclude congenital abnormality. EDC by US Amniotic Fluid Index: Normal COMMENTS: RUQ: 3.0 LUQ: 4.2 RLQ: 5.0 LLQ: 3.8 Total: 16.0 cm Biophysical Profile: Score 0/2 WILMAN (>2cm) 2/2 Respirations (>30 sec) 0/2 Body flexion/extension 2/2 Extremity flexion/extension 2/2 TOTAL SCORE 6/8
== END 2019-07-14 01:00 ==
PROVIDERS: PCP Nurse Practitioner Family; Visit Provider Obstetrics & Gynecology
DX: O13.3 Gestational [pregnancy-induced] hypertension without significant proteinuria, third trimester (principal)
CPT/HCPCS: 76815; 76819

== ENCOUNTER 2019-07-14 07:04 | Outpatient (CLI) | payer MEDICAID, SELFPAY | END 2019-07-14 07:24 | PROVIDERS: PCP Nurse Practitioner Family; Visit Provider Obstetrics & Gynecology | DX: Z53.29 Procedure and treatment not carried out because of patient's decision for other reasons (principal) ==

== ENCOUNTER 2019-07-15 07:09 | Outpatient (CLI) | payer MEDICAID, SELFPAY | END 2019-07-15 07:29 | PROVIDERS: PCP Nurse Practitioner Family; Visit Provider Obstetrics & Gynecology | DX: Z53.29 Procedure and treatment not carried out because of patient's decision for other reasons (principal) ==

== ENCOUNTER 2019-07-18 07:51 | Outpatient (CLI) | payer MEDICAID, SELFPAY | END 2019-07-18 08:11 | PROVIDERS: PCP Nurse Practitioner Family; Visit Provider Obstetrics & Gynecology | DX: Z53.29 Procedure and treatment not carried out because of patient's decision for other reasons (principal) ==

== ENCOUNTER 2019-07-21 02:46 | Outpatient (CLI) | payer MEDICAID, SELFPAY ==
--- NOTE | 2019-07-21 08:53 | DI.US_ITS ---
SYMPTOM/DIAGNOSIS: HIGH RISK , GEST HTN O19.9, PROTEINURIA OB ULTRASOUND FOR BIOPHYSICAL PROFILE : 07/21 OB ultrasound was performed utilizing biophysical profile protocol The fetus is in cephalic presentation and placenta is fundal and posterior. Biophysical profile score is 8 out of 8. cardiac activity observed at a rate of 136 BPM Predicted Gestational Age: Indication/History: 36 +5 Wks Range: to Prior US done on: Determined by: First US LMP History EDC by prior US: 08/13/19 For multiple gestations: Baby PLACENTA: Grade: II Location: Anterior XX Posterior PRESENTATION: RT LT LOW LYING PREVIA Cephalic xx Trans (Head RT LT ) Varied Breech BIOMETRY: Anatomy Identified: BPD: mm wks 4 chamber Heart Heart Rate 136 BPM HC: mm wks LVOT Post Fossa AC: mm wks RVOT Ventricles FL: mm wks Stomach Nose Bladder Lips Cisterna Magna: mm CI: Kidneys Palate Cerebellum: mm 3 vessel cord Spine EFW: grms % Cord Insertion NS= not seen Composite Age (US) wks Many abnormalities cannot be diagnosed. A normal exam does not exclude congenital abnormality. EDC by US Amniotic Fluid Index: Oligo Normal Polyhydramnios COMMENTS: RUQ: LUQ: RLQ: LLQ: Total: cm Biophysical Profile: Score 0/2 WILMAN (>2cm) __2/2 Respirations (>30 sec) ___2/2 Body flexion/extension __2/2 Extremity flexion/extension ___2/2 TOTAL SCORE __8/8
== END 2019-07-21 03:06 ==
PROVIDERS: PCP Nurse Practitioner Family; Visit Provider Obstetrics & Gynecology
DX: O13.3 Gestational [pregnancy-induced] hypertension without significant proteinuria, third trimester (principal); Z36.89 Encounter for other specified antenatal screening; L02.91 Cutaneous abscess, unspecified
CPT/HCPCS: 76815; 76819

== ENCOUNTER 2019-07-21 09:41 | Outpatient (CLI) | payer MEDICAID, SELFPAY | END 2019-07-21 10:01 | PROVIDERS: PCP Nurse Practitioner Family; Visit Provider Obstetrics & Gynecology Gynecology | DX: O24.414 Gestational diabetes mellitus in pregnancy, insulin controlled (principal); Z3A.36 36 weeks gestation of pregnancy; Z79.4 Long term (current) use of insulin | CPT/HCPCS: 59025 ==

== ENCOUNTER 2019-07-21 13:51 | Outpatient (REF) | payer MEDICAID, SELFPAY | END 2019-07-21 14:11 | LOC: LBN 13:51 | PROVIDERS: PCP Nurse Practitioner Family; Visit Provider Obstetrics & Gynecology | DX: L02.211 Cutaneous abscess of abdominal wall (principal) | CPT/HCPCS: 87077; 87070; 87186; 87205 ==

== ENCOUNTER 2019-07-25 10:29 | Outpatient (CLI) | payer MEDICAID, SELFPAY ==
[2019-07-25 15:05] LABS: Abs Immature Grans 0.07 k/cumm (0.0-0.09); Absolute Basophil Count 0.01 k/cumm (0.0-0.2); Absolute Eosinophil Count 0.07 k/cumm (0.0-0.7); Absolute Lymphocyte Count 1.91 k/cumm (1.2-3.4); Absolute Monocyte Count 0.64 k/cumm (0.11-0.7); Absolute Neutrophil Count 7.99 k/cumm (1.2-6.7); Basophils % 0.1; Eosinophils % 0.7; HCT 34.9 % (36.0-46.0); HGB 11.7 g/dL (12.0-15.5); Immature Grans % 0.7; Lymphocytes % 17.9; Mean Corp. HGB Concentration 33.5 g/dL (32.0-36.0); Mean Corpuscular Hemoglobin 30.1 pg (27.0-33.0); Mean Corpuscular Volume 89.7 fL (80-95); Neutrophils % 74.6; Platelet Count 261 x1000/uL (130-400); RBC 3.89 m/cumm (4.00-5.20); RBC Distribution Width 12.8 % (11.7-14.6); White Blood Cell Count 10.69 k/cumm (4.4-10.8)
[2019-07-25 15:17] LABS: ALT 20 U/L (14-59); AST 16 U/L (15-37); Albumin 2.6 g/dL (3.4-5.0); Alkaline Phosphatase 109 U/L (46-116); Anion Gap 10.2 mmol/L (3-11); BUN 10 mg/dL (7-18); Bilirubin, Total 0.5 mg/dL (0.2-1.0); CO2 24.8 mmol/L (21.0-32.0); CREATININE 0.68 mg/dL (0.55-1.02); Calcium 9.1 mg/dL (8.5-10.1); Chloride 102 mmol/L (98-107); Glucose 86 mg/dL (70-100); Potassium 3.8 mmol/L (3.5-5.1); Sodium 137 mmol/L (136-145); Total Protein 6.6 g/dL (6.4-8.2)
[2019-07-25 16:54] LABS: Hemoglobin A1C 5.2 % (4.5-6.2)
[2019-08-01 12:33] LABS: Amphetamines Negative ng/mL (Cutoff: 30); Barbiturates Negative ng/mL (Cutoff: 75); Benzodiazepines Negative ng/mL (Cutoff: 75); Methamphetamine Negative ng/mL (Cutoff: 30)
[2019-08-01 12:34] LABS: Buprenorphine Negative ng/mL (Cutoff: 1); Cocaine Negative ng/mL (Cutoff: 30); Methadone Negative ng/mL (Cutoff: 40); Opiates Positive ng/mL (Cutoff: 30); Phencyclidine Negative ng/mL (Cutoff: 15)
[2019-08-01 12:35] LABS: Codeine <2 ng/mL; Hydrocodone <2 ng/mL; Hydromorphone <2 ng/mL
[2019-08-01 12:36] LABS: Morphine 16 ng/mL
== END 2019-07-25 10:49 ==
PROVIDERS: PCP Nurse Practitioner Family; Visit Provider Obstetrics & Gynecology
DX: O24.414 Gestational diabetes mellitus in pregnancy, insulin controlled (principal); Z3A.37 37 weeks gestation of pregnancy; Z79.4 Long term (current) use of insulin
CPT/HCPCS: 59025; 30365; 36415; 80053; 80361; 80307; 83036; 85025; G0480

== ENCOUNTER 2019-07-30 10:05 | Inpatient (IN) | payer MEDICAID, SELFPAY ==
[2019-07-30 11:05] LABS: Abs Immature Grans 0.05 k/cumm (0.0-0.09); Absolute Basophil Count 0.01 k/cumm (0.0-0.2); Absolute Eosinophil Count 0.05 k/cumm (0.0-0.7); Absolute Lymphocyte Count 1.28 k/cumm (1.2-3.4); Absolute Monocyte Count 0.61 k/cumm (0.11-0.7); Basophils % 0.1; Eosinophils % 0.5; HCT 35.8 % (36.0-46.0); Immature Grans % 0.5; Lymphocytes % 11.8; Mean Corp. HGB Concentration 33.5 g/dL (32.0-36.0); Mean Corpuscular Hemoglobin 30.4 pg (27.0-33.0); Mean Corpuscular Volume 90.6 fL (80-95); Monocytes % 5.6; Neutrophils % 81.5; Platelet Count 249 x1000/uL (130-400); RBC 3.95 m/cumm (4.00-5.20); RBC Distribution Width 13.1 % (11.7-14.6); White Blood Cell Count 10.88 k/cumm (4.4-10.8)
[2019-07-30 11:06] LABS: Absolute Neutrophil Count 8.87 k/cumm (1.2-6.7)
[2019-07-30 11:21] LABS: ALT 21 U/L (14-59); AST 15 U/L (15-37); Albumin 2.5 g/dL (3.4-5.0); Alkaline Phosphatase 108 U/L (46-116); Anion Gap 10.7 mmol/L (3-11); BUN 8 mg/dL (7-18); Bilirubin, Total 0.5 mg/dL (0.2-1.0); CO2 23.3 mmol/L (21.0-32.0); CREATININE 0.72 mg/dL (0.55-1.02); Calcium 8.5 mg/dL (8.5-10.1); Chloride 105 mmol/L (98-107); Glucose 100 mg/dL (70-100); Potassium 3.9 mmol/L (3.5-5.1); Sodium 139 mmol/L (136-145); Total Protein 6.3 g/dL (6.4-8.2)
[2019-07-30 11:40] LABS: *AMPHETAMINES SCREEN URINE Negative (Negative); *BARBITURATES SCREEN URINE Negative (Negative); *BENZODIAZEPINES SCREEN URINE Negative (Negative); Cannabinoids THC Negative (Negative); Cocaine Screen,Urine Negative (Negative); METHADONE URINE SCREEN Negative (Negative); OPIATES URINE SCREEN POSITIVE (Negative)
[2019-07-30 11:41] LABS: Tricyclic Antidepressants Negative (Negative)
[2019-07-30] MEDS: VANCOMYCIN 2,000 MG in Normal Saline 500 ML 250 MG IVPB (11:45)
--- NOTE | 2019-07-30 12:02 | HPE_ITS ---
Assessment and Plan Assessment and plan (1) High risk due to maternal drug abuse: Status: Acute (2) Diabetes in : Status: Acute (3) Heroin abuse: Status: Acute (4) MRSA (methicillin resistant staph aureus) culture positive: Status: Acute (5) Non-reassuring electronic monitoring tracing: Status: Acute Assessment and plan: My recommendation is to proceed with emergent section at this time due to non-reassuring tracing. Risks of surgery were reviewed. Because of MRSA + and GBS + will start on Vancomycin for prophylactic antibiotics. UDS today is positive for opiates. The patient originally requested tubal ligation at her antepartum visits. She declines this at this time. She has been counseled on concern for the fetus and the high risk of adverse outcome at this time. History of Present Illness History of Present Illness Chief Complaint: SROM Narrative: 28 year old at 38 weeks presents with SROM occuring at approximately 9:30 this morning. Her course has been complicated by GDM diagnosed on early one hour GCT. She has not been compliant with blood sugar management and has not returned blood sugar logs this . She was scheduled for induction of labor one week ago and refused admission and did not wish to undergo any attempt at glycemic control. She does have a history of substance abuse in the past and DCF suspected heroin use which she denied to me but admitted to anesthesia today. I have had several telephone conversations with the patient regarding drug use wh ich she adamantly denies but refuses drug screen. In addition she was noted to have a number of small skin abscess on her abdomen which grew MRSA and she reports taking Clindamycin which I prescribed but there was at least a one week interval from the time that the medication was prescribed until the time that it was returned. Today on admission she was noted to be grossly ruptured with meconium stained fluid. The heart tracing showed a rate of 140 with absent variability and occasional late decelerations. [facility] Social History (Updated 03/22/19 @ 14:32 by Tevin Jackson CNM) Smoking/Tobacco Use Status: Current every day Tobacco Type: cigarettes Alcohol Intake: current Alcohol Intake frequency: holidays/special occasions only Drug use: Never Substance use type: marijuana and other Details: COCAINE/CRACK (VERY RARELY AT A [employer]),OPIATES, RX FOR BACK PAIN, NOT HERS Household members: family What type of physical activity do you participate in: none Seatbelt use: sometimes Do you feel safe in your relationship?: Yes Female Reproductive History Menstrual Age of Menarche: 11 Duration of menses: 3-5 days History History 4 Para 3 Hx # Term Pregnancies 1 Multiple births 0 Hx # Pregnancies 2 Ectopic pregnancies 0 AB induced 0 Hx Number of Living Children 3 AB spontaneous 0 Past Pregnancies Del. Date GA/Weeks # Outcome Route Wgt Sex Labor Lgth Anesthes ia Location Prov Complic 10/28/11 37 No Successful vaginal 7 lb 11 oz Male 13 hrs [facility] 05/20/13 35 No Successful vaginal 5 lb 12 oz Female 4.5 hrs [facility] 04/30/15 35 No Successful vaginal 6 lb Male 2 hrs [facility] Delivery Date: 10/28/11 On 03/22/19 @ 14:36 TEVIN JACKSON iol for pprom Delivery Date: 05/20/13 On 03/22/19 @ 14:38 TEVIN JACKSON iol for pprom Delivery Date: 04/30/15 On 03/22/19 @ 14:40 TEVIN JACKSON precipitous Meds Home Medications and Allergies Home Medications Medication Instructions Recorded Confirmed Type albuterol sulfate 1 puff IH Q6H PRN #8 gm 08/16/18 07/21/19 Rx blood sugar diagnostic #10 each 04/20/19 07/21/19 Rx blood-glucose meter #1 each 04/20/19 07/21/19 Rx lancets 30 gauge #25 each 04/20/19 07/21/19 Rx bupropion HCl 450 mg 24 hr tablet, 450 mg PO DAILY #30 tab 05/23/19 07/21/19 Rx extended release prenat.vits,aide,nhm-wtcq-ieuzl 1 tab PO DAILY #30 tab 05/23/19 07/21/19 Rx insulin NPH isoph U-100 human 100 20 unit SC BID ml 05/30/19 07/21/19 History unit/mL (3 mL) subcutaneous pen insulin lispro 100 unit/mL 20 unit SC QACDINNER ml 05/30/19 07/21/19 History subcutaneous pen inhalational spacing device each 07/11/19 07/21/19 History pantoprazole 20 mg tablet,delayed 20 mg PO DAILY #30 tab 07/11/19 07/21/19 Rx release clindamycin HCl 150 mg capsule 150 mg PO TID 10 Days #30 cap 07/21/19 07/21/19 Rx Allergies Allergy/AdvReac Type Severity Reaction Status Date / Time hydroxyprogesterone Allergy Severe Hives Verified 07/21/19 11:26 [From Lizet] Results Labs Result diagrams: 07/30/19 10:50 07/30/19 10:50 Labs: Laboratory Results - last 24 hr 07/30/19 07/30/19 07/30/19 10:30 10:50 10:50 WBC 10.88 H RBC 3.95 L Hgb 12.0 Hct 35.8 L MCV 90.6 MCH 30.4 MCHC 33.5 RDW 13.1 Plt Count 249 MPV 11.0 Immature Gran % 0.5 Neutrophils % 81.5 Lymphocytes % 11.8 Monocytes % 5.6 Eosinophils % 0.5 Basophils % 0.1 Absolute Neutrophils 8.87 H Absolute Lymphocytes 1.28 Absolute Monocytes 0.61 Absolute Eosinophils 0.05 Absolute Basophils 0.01 Sodium 139 Potassium 3.9 Chloride 105 Carbon Dioxide 23.3 Anion Gap 10.7 BUN 8 Creatinine 0.72 Estimated GFR/1.73 m2 >= 60.00 Glucose 100 Calcium 8.5 Total Bilirubin 0.5 AST 15 ALT 21 Alkaline Phosphatase 108 Total Protein 6.3 L Albumin 2.5 L Urine Opiates Screen Positive Urine Methadone Screen Negative Ur Barbiturates Screen Negative Ur Tricyclics Screen Negative Ur Amphetamines Screen Negative U Benzodiazepines Scrn Negative Urine Cocaine Screen Negative Ur THC Screen Negative
[2019-07-30] MEDS: Sodium Citrate 30 ML CUP (12:10)
--- NOTE | 2019-07-30 13:26 | PLAC_PTH ---
PATIENT: Chanelle Vanegas LOC: OBS U#:[id number] AGE/SX: 28/F ROOM: OBS.304 RE07/30/[address]: Mega Hutton MD : 1990 BED: A DIS: 08/02/2019 SPEC #: [id number] RECD: 07/31/19 13:16 STATUS: DIOGENES REQ #: [id number] CHAPIN: 07/30/19 13:[address]: Mega Hutton DEPT: Surgical Specimen RECD BY: Maria Alejandra Jewell ENTERED: 07/31/19 13:17 SP TYPE: PLAC OTHR DR: Sue Vieira APRN Tissues: 1 - FALLOPIAN TUBE (STERILIZATION) 2 - FALLOPIAN TUBE (STERILIZATION) 3 - PLACENTA (3RD TRIMESTER) Procedures: GROSS AND MICRO LEVEL 2 IMMUNOPEROXIDASE STAIN GROSS AND MICRO LEVEL 5 Comments: [id number]
[2019-07-30] MEDS: Lactated Ringers 1,000 ML 120 ML IV (16:06)
--- NOTE | 2019-07-30 17:20 | W.PM.PROGNOT ---
Date of Service Date of service: 07/30/19 Time of Service: 17:20 Assessment and Plan Assessment and plan (1) Non-reassuring electronic monitoring tracing: Status: Acute Assessment and plan: Plan to proceed with primary section secondary to NRFHTs. The patient had been counseled verbally on risks related to surgery and consent was obtained. We did discuss tubal sterilization which had been agreed upon at her visits. Due to Non-reassuring status she elected to forgo sterilization at first. Intraoperatively the patient did change her mind and verbal consent was obtained and sterilization performed. The consent form was amended postoperatively and signed by the patient. (2) Diabetes in : Status: Acute (3) Heroin abuse: Status: Acute (4) MRSA (methicillin resistant staph aureus) culture positive: Status: Acute Subjective Subjective Interval history since last seen: Late Entry Note The patient presented to the Center with SROM and thick meconium. The tracing on admission showed a rate of ~150 bpm with minimal variability and recurrent late decelerations. The tracing was challenging to obtain due to patient body habitus. On exam cervix was 2cm in dilatation with presenting part not in the pelvis and not palpable. Bediside ultrasound confirmed cephalic presentation.The patient reported painful contractions q 3-4 minutes. The patient did admit heroin use to anesthesia although she had adamantly denied it to me today and over the phone. Objective Objective Clinical Data: Abnormal lab results 07/30/19 07/30/19 Range/Units 10:50 10:50 WBC 10.88 H (4.4-10.8) k/cumm RBC 3.95 L (4.00-5.20) m/cumm Hct 35.8 L (36.0-46.0) % Absolute Neutrophils 8.87 H (1.2-6.7) k/cumm Total Protein 6.3 L (6.4-8.2) g/dL Albumin 2.5 L (3.4-5.0) g/dL Intake & Output 07/29/19 07/30/19 07/30/19 23:59 11:59 23:59 Output Total 1000 / 1000 Balance -1000 / -1000 Weight 307 lb Output: Urine 100 / 100 Estimated Blood Loss 900 / 900 Other: Urine Color Light Korina Urine Appearance Cloudy Laboratory Results WBC 10.88 k/cumm (4.4-10.8) H 07/30/19 10:50 RBC 3.95 m/cumm (4.00-5.20) L 07/30/19 10:50 Hgb 12.0 g/dL (12.0-15.5) 07/30/19 10:50 Hct 35.8 % (36.0-46.0) L 07/30/19 10:50 MCV 90.6 fL (80-95) 07/30/19 10:50 MCH 30.4 pg (27.0-33.0) 07/30/19 10:50 MCHC 33.5 g/dL (32.0-36.0) 07/30/19 10:50 RDW 13.1 % (11.7-14.6) 07/30/19 10:50 Plt Count 249 x1000/uL (130-400) 07/30/19 10:50 MPV 11.0 fL (8.0-11.0) 07/30/19 10:50 Immature Gran % 0.5 07/30/19 10:50 Neutrophils % 81.5 07/30/19 10:50 Lymphocytes % 11.8 07/30/19 10:50 Monocytes % 5.6 07/30/19 10:50 Eosinophils % 0.5 07/30/19 10:50 Basophils % 0.1 07/30/19 10:50 Absolute Neutrophils 8.87 k/cumm (1.2-6.7) H 07/30/19 10:50 Absolute Lymphocytes 1.28 k/cumm (1.2-3.4) 07/30/19 10:50 Absolute Monocytes 0.61 k/cumm (0.11-0.7) 07/30/19 10:50 Absolute Eosinophils 0.05 k/cumm (0.0-0.7) 07/30/19 10:50 Absolute Basophils 0.01 k/cumm (0.0-0.2) 07/30/19 10:50 Sodium 139 mmol/L (136-145) 07/30/19 10:50 Potassium 3.9 mmol/L (3.5-5.1) 07/30/19 10:50 Chloride 105 mmol/L (98-107) 07/30/19 10:50 Carbon Dioxide 23.3 mmol/L (21.0-32.0) 07/30/19 10:50 Anion Gap 10.7 mmol/L (3-11) 07/30/19 10:50 BUN 8 mg/dL (7-18) 07/30/19 10:50 Creatinine 0.72 mg/dL (0.55-1.02) 07/30/19 10:50 Estimated GFR/1.73 m2 >= 60.00 (mL/min/1.73m2) 07/30/19 10:50 Glucose 100 mg/dL (70-100) 07/30/19 10:50 Calcium 8.5 mg/dL (8.5-10.1) 07/30/19 10:50 Total Bilirubin 0.5 mg/dL (0.2-1.0) 07/30/19 10:50 AST 15 U/L (15-37) 07/30/19 10:50 ALT 21 U/L (14-59) 07/30/19 10:50 Alkaline Phosphatase 108 U/L (46-116) 07/30/19 10:50 Total Protein 6.3 g/dL (6.4-8.2) L 07/30/19 10:50 Albumin 2.5 g/dL (3.4-5.0) L 07/30/19 10:50 Urine Opiates Screen Positive (Negative) 07/30/19 10:30 Urine Methadone Screen Negative (Negative) 07/30/19 10:30 Ur Barbiturates Screen Negative (Negative) 07/30/19 10:30 Ur Tricyclics Screen Negative (Negative) 07/30/19 10:30 Ur Amphetamines Screen Negative (Negative) 07/30/19 10:30 U Benzodiazepines Scrn Negative (Negative) 07/30/19 10:30 Urine Cocaine Screen Negative (Negative) 07/30/19 10:30 Ur THC Screen Negative (Negative) 07/30/19 10:30 Patient ABO/Rh A Positive 07/30/19 10:50 Antibody Screen Negative 07/30/19 10:50
--- NOTE | 2019-07-30 17:26 | W.PM.OP ---
Date of service: 07/30/19 Time of Service: 17:26 Operative Note Operative Note DATE OF PROCEDURE: 07/30/19 PRE-OP DIAGNOSIS: 38 weeks non-reassuring heart tracing, SROM, poorly controlled DM, opiate abuse. POST-OP DIAGNOSIS: same PROCEDURE: Primary low transverse section Bilateral tubal ligation via [place] technique SURGEON: Mega Hutton ASSISTING SURGEON: Destiney Cabello ANESTHESIA: spinal ESTIMATED BLOOD LOSS: 900 PATHOLOGY: other (Placenta, bilateral fallopian tube segments. ) COMPLICATIONS: None Patient was transported to: floor Patient's condition: stable Findings: 1. Delivered LBM 8,9 2. Thick meconium 3. Umbilical cord true knot Procedure Description: The patient was taken to the operating room and after spinal anesthesia was obtained the patient was placed in supine position with a left lateral tilt. The patient was prepped and draped in the usual sterile manner. A Pfannestiel incision was made with a #10 scalpel and sharp dissection was taken down to the underlying fascia. The fascia was incised in the midline with the scalpel and the incision carried laterally in either direction with Dela Cruz scissors. The fascia was dissected off the underlying rectus muscles using both blunt and sharp dissection. The rectus were divided in the midline with blunt digital dissection and the peritoneum was entered bluntly. The Mobius retractor was placed. The vesicouterine flap was scored with the scalpel and the bladder flap was developed digitally. The lower uterine segment was incised with the scalpel and extended laterally in either direction via stretch. The infant was found in cephalic presentation and delivered with a forceps assist. A true knot was noted in the cord. The placenta was manually extracted and the uterus cleared of all clots and debris. The hysterotomy was closed with a running locked stitch of #1 chromic. A second imbricating layer of #1 chromic in a Lambert stitch completed the repair. Excellent hemostasis was noted. The right fallopian tube was grasped and elevated with a Fletcher clamp. A looped segment was doubly ligated with 0 plain gut suture and the looped segment excised. A similar procedure was carried out on the opposite side. The peritoneum was closed with a running stitch of 2-0 vicryl. The subfascial space was thoroughly examined and noted to be hemostatic. The fascia was closed with a running stitch of 0-Vicryl. The subcutaneous tissues were closed with interrupted sutures of 3-0 vicryl. The skin was closed with ute. The procedure was concluded at this point. Sponge, lap and needle counts were correct at the conclusion of the procedure and the patient was transferred to the floor in stable condition.
[2019-07-30] MEDS: oxyCODONE 5 mg/Acetaminophen 325 mg TAB PO ×2 (17:41→20:00)
[2019-07-30] MEDS: Ketorolac 30 MG/ML VIAL IVP (20:27)
[2019-07-31] MEDS: buPROPion-XL 150 MG TABCR 450 MG PO ×2 (01:05→08:37)
[2019-07-31] MEDS: Ondansetron 4 MG/2 ML VIAL IVP (01:09)
[2019-07-31 07:12] LABS: HCT 22.9 % (36.0-46.0); HGB 7.5 g/dL (12.0-15.5); Mean Corp. HGB Concentration 32.8 g/dL (32.0-36.0); Mean Corpuscular Hemoglobin 30.5 pg (27.0-33.0); Mean Corpuscular Volume 93.1 fL (80-95); Platelet Count 236 x1000/uL (130-400); RBC 2.46 m/cumm (4.00-5.20); RBC Distribution Width 13.3 % (11.7-14.6); White Blood Cell Count 15.81 k/cumm (4.4-10.8)
[2019-07-31] MEDS: Ketorolac 30 MG/ML VIAL IVP ×2 (08:37→13:57)
[2019-07-31] MEDS: Lactated Ringers 1,000 ML 125 ML IV (08:38)
[2019-07-31] MEDS: oxyCODONE 5 mg/Acetaminophen 325 mg TAB PO ×2 (09:25→17:15)
--- NOTE | 2019-07-31 11:17 | W.INDIABCONS ---
Date of service: 07/31/19 Time of Service: 11:17 Diabetes Inpatient Consult DESCRIPTION/ASSESSMENT: Appreciate nutrition consult for diabetes in for Chanelle Vanegas who has just delivered her baby at self-reported 38 weeks. She states her blood sugar was 'high' this morning after eating a lot of junk food. She was treated for gestational diabetes with NPH and mealtime insulin during this . Visited her today and she reports back to me her blood sugars for the past few days prior to delivery all sounding reasonably close to goal without hypoglycemia. She was testing less than her prescribed mealtime monitoring schedule. During the Chanelle was stressed by having to eat healthy food she could not afford as well as feeding her family. During my visit with her this morning the baby was crying and the setting was not conducive to ongoing communication. INTERVENTION: Encouraged her to monitor her blood sugars for a day to assure blood sugars have returned to normal range eating a regular diet. PLAN: Will follow any blood sugars and encourage her to continue a moderate food plan to decrease risk of developing diabetes. Time Spent in Nutritional Counseling and Treatment: 7 minutes face to face
[2019-07-31] MEDS: Docusate Sodium 100 MG CAP PO ×2 (17:15→20:52)
[2019-07-31 20:26] LABS: Vancomycin, Trough 25.4 ug/mL (10.0-20.0)
[2019-07-31] MEDS: Ibuprofen 600 MG TAB PO (20:52)
[2019-08-01] MEDS: oxyCODONE 5 mg/Acetaminophen 325 mg TAB PO ×3 (02:11→20:20)
[2019-08-01] MEDS: Ibuprofen 600 MG TAB PO ×4 (02:11→20:20)
[2019-08-01] MEDS: buPROPion-XL 150 MG TABCR 450 MG PO (08:03)
[2019-08-01] MEDS: Sulfameth/Trimeth DS TAB 1 TAB PO ×2 (08:03→20:21)
[2019-08-02] MEDS: Ibuprofen 600 MG TAB PO ×2 (03:49→09:33)
[2019-08-02] MEDS: buPROPion-XL 150 MG TABCR 450 MG PO (08:46)
[2019-08-02] MEDS: Sulfameth/Trimeth DS TAB 1 TAB PO (08:46)
[2019-08-02] MEDS: oxyCODONE 5 mg/Acetaminophen 325 mg TAB PO (09:33)
[2019-08-02 10:40] LABS: Hepatitis C Ab w Rflx HCV PCR Negative (NEGAT)
[2019-08-02 10:41] LABS: HIV-1/2 Ag & Ab Screen Negative (NEGAT)
[2019-08-02 10:45] LABS: Hepatitis B Surface Ag Negative (NEGAT)
[2019-08-02 15:40] LABS: Syphilis Total Ab w/Reflex Nonreactive (Nonreactive)
== END 2019-08-02 11:00 | disposition home or self-care (01) | DRG 784 ==
PROVIDERS: Obstetrics & Gynecology Gynecology; Admitting Provider Obstetrics & Gynecology; PCP Nurse Practitioner Family; Visit Provider Obstetrics & Gynecology
PROC: 10D00Z1 Extraction of Products of Conception, Low, Open Approach (ICD-10-PCS; CPT 59514; principal; 2019-07-30 11:55)
DX: O42.02 Full-term premature rupture of membranes, onset of labor within 24 hours of rupture (principal); O99.324 Drug use complicating childbirth; O77.0 Labor and delivery complicated by meconium in amniotic fluid; Z37.0 Single live birth; O76 Abnormality in fetal heart rate and rhythm complicating labor and delivery; O24.425 Gestational diabetes mellitus in childbirth, controlled by oral hypoglycemic drugs; O99.334 Smoking (tobacco) complicating childbirth; O99.824 Streptococcus B carrier state complicating childbirth; O99.344 Other mental disorders complicating childbirth; O99.72 Diseases of the skin and subcutaneous tissue complicating childbirth; L02.221 Furuncle of abdominal wall; B95.62 Methicillin resistant Staphylococcus aureus infection as the cause of diseases classified elsewhere; Z91.14 Patient's other noncompliance with medication regimen; Z91.19 Patient's noncompliance with other medical treatment and regimen; Z71.3 Dietary counseling and surveillance; Z67.10 Type A blood, Rh positive; F11.10 Opioid abuse, uncomplicated; F17.210 Nicotine dependence, cigarettes, uncomplicated; F32.9 Major depressive disorder, single episode, unspecified; Z30.2 Encounter for sterilization; Z23 Encounter for immunization; Z75.2 Other waiting period for investigation and treatment
CPT/HCPCS: 59514; 58700; 36415; 80053; 80307; 85027; 86803; 86850; 86900; 86901; 87340; 87389; 99223; 99233; 80202; 85025; 86780; 88302; 88307; 88361; J1885; J2405; J3370

== ENCOUNTER 2019-09-12 20:27 | Emergency (ER) | payer MEDICAID, SELFPAY ==
[2019-09-12] VITALS (8 sets, daily range): BP systolic 117–149; BP diastolic 57–75; PULSE 83–120; RESP 14–21; TEMP 37.1; O2SAT 92–98
--- NOTE | 2019-09-12 21:00 | ED.GENADUL_ITS ---
Discharge Plan Disposition Patient Disposition: HOME Condition: Good Discharge Details Chief Complaint: OD/Poison Clinical Impression: Accidental drug overdose, Heroin overdose, Cocaine use Primary Care Provider: Meño Goodman ED Provider: Juan F Doty Meds and New Rx's Prescriptions: Continued (DME) lancets [OneTouch Delica Lancets] 30 gauge misc See Dose Instructions .ROUTE .MEDSUPPLY Qty: 25 RF: 0 (DME) blood-glucose meter [OneTouch UltraMini] kit See Dose Instructions .ROUTE .MEDSUPPLY Qty: 1 RF: 0 (DME) OneTouch Verio strip See Dose Instructions .ROUTE .MEDSUPPLY Qty: 10 RF: 0 bupropion HCl 450 mg tablet extended release 24 hr 450 mg PO DAILY Qty: 30 RF: 2 (DME) Aerochamber MV Spacer See Dose Instructions .ROUTE .MEDSUPPLY RF: 0 albuterol sulfate 90 mcg/actuation HFA aerosol inhaler 1 puff IH Q6H PRN (Reason: bronchospasm) Qty: 8 RF: 0 Discharge Instructions Additional Instructions: Please avoid drug use in the future. Be sure to meet with your therapist on and discuss tonight's events. Contact [facility] if you decide you need or want help. Return to ED for any unsafe feelings, mental status changes, chest pain, shortness of breath, other concerns or problems. Referrals: Meño Goodman [Primary Care Provider] - Medical Decision Making Patient presenting after overdose. She admits to doing crack cocaine and snorting heroin tonight. She did not receive Narcan. She was given compression only CPR by [facility]. She was awake and alert for EMS. She is awake and alert here. Initial EKG shows sinus tach at 104. She has some ST depression present predominantly in the lateral leads. Patient initially not wanting to stay. After discussion she agreed to stay especially because of the EKG changes. Laboratory studies and chest x-ray ordered. 21:30 - Patient went into the bathroom twice prior to having an IV established. While nurse was establishing IV patient became more and more obtunded. She then went into a bigeminy rhythm. Pulse ox had not been on because patient would not leave it on. When we applied it her saturations were in the 50s. She was placed on oxygen and 0.2 mg of Narcan IV was given. Patient almost immediately woke up and saturations were normal. She has subsequently stayed awake. She denies using more heroin in the bathroom. She was eventually interviewed by state connors. She became extremely upset and irate. We were able to eventually calm her down. She agreed to stay for labs and chest x-ray and monitoring. She has subsequently remained awake. Chest x-ray is unremarkable. No pneumothorax or rib fracture seen. Laboratory studies show a white count of 16. Chemistries fine. First troponin negative. 02:10 - Patient without any further episodes here. She is ambulatory. She is awake and alert. She continues to deny SI. She does have a therapist. She denies a drug problem, reports that this was related to a lot of stress and bad things going on. She does not wish a manager recovery to be called but she will take information for the recovery center. She has an appointment with her therapist on . Her repeat EKG has normalized. Her second troponin remains negative. She will be discharged home. Lab Data Lab results reviewed: Yes I reviewed the patient's lab results. ECG Data Attestation: I personally reviewed and interpreted this ECG (s) as follows: Prior ECG tracings: not available for review Interpretation: EKG #1?sinus tachycardia at 104. Normal intervals and axis. ST depression in lateral leads. EKG #2?sinus rhythm at 79. Normal interval and axis. Normal ST segments. HPI General Mode of arrival: EMS . Date/Time Provider Initiated Documentation: 09/12/19 20:57 . Limitations to Documentation: no limitations . Information obtained by: patient, EMS and RN notes reviewed . HPI Narrative: Patient is brought in by EMS for evaluation after she was found unresponsive. [facility] reports that they performed CPR but did not give Narcan as patient's friend denied drug use. She had compression only CPR done. By the time EMS arrived she was awake. EMS did not give Narcan either. Patient arrives to ED awake and alert. She reports to me that she smoked crack and did one bag of heroin. She denies that she was trying to harm herself. She reports that she does not usually use drugs but does dabble in them. This was an accidental overdose. She reports some right lateral chest pain but denies any other symptoms currently. She denies shortness of breath, nausea, vomiting, abdominal pain. Related Data Home Medications Medication Instructions Recorded Confirmed albuterol sulfate 1 puff IH Q6H PRN #8 gm 08/16/18 09/12/19 blood sugar diagnostic #10 each 04/20/19 08/07/19 blood-glucose meter #1 each 04/20/19 08/07/19 lancets 30 gauge #25 each 04/20/19 08/07/19 bupropion HCl 450 mg 24 hr tablet, 450 mg PO DAILY #30 tab 05/23/19 09/12/19 extended release inhalational spacing device each 07/11/19 08/07/19 Previous Rx's Medication Instructions Recorded albuterol sulfate 1 puff IH Q6H PRN #8 gm 08/16/18 blood sugar diagnostic #10 each 04/20/19 blood-glucose meter #1 each 04/20/19 lancets 30 gauge #25 each 04/20/19 bupropion HCl 450 mg 24 hr tablet, 450 mg PO DAILY #30 tab 05/23/19 extended release Allergies Allergy/AdvReac Type Severity Reaction Status Date / Time hydroxyprogesterone Allergy Severe Hives Verified 09/12/19 20:38 [From [employer]] General Stated Complaint: OD/Poison FELIZ: 2 Review of Systems Narrative: As documented in HPI otherwise negative as below. Const: no fever, chills, weakness Resp: no cough, SOB, pleuritic pain CV: no CP, diaphoresis, edema, syncope GI: no abdominal pain, nausea, vomiting, diarrhea Neuro: no headache, numbness, focal weakness, confusion [facility] Medical History Asthma (Chronic) Diabetes in (Inactive) Major depressive disorder with current active episode (Chronic 06/22/18) Surgical History Status post emergency section (Acute) Social History Smoking/Tobacco Use Status: Current every day Tobacco Type: cigarettes Alcohol Intake: current Alcohol Intake frequency: holidays/special occasions only Drug use: Never Substance use type: marijuana, crack/cocaine, heroin, opiates, prescription drug and other Details: COCAINE/CRACK (VERY RARELY AT A LIBERTARIAN),OPIATES, RX FOR BACK PAIN, NOT HERS Household members: family What type of physical activity do you participate in: none Seatbelt use: sometimes Do you feel safe at home: Yes Do you feel safe in your relationship?: Yes Female Reproductive History Menstrual Age of Menarche: 11 Duration of menses: 3-5 days History History 4 Para 3 Hx # Term Pregnancies 1 Multiple births 0 Hx # Pregnancies 2 Ectopic pregnancies 0 AB induced 0 Hx Number of Living Children 4 AB spontaneous 0 Past Pregnancies Del. Date GA/Weeks # Outcome Route Wgt Sex Labor Lgth Anesthes ia Location Prov Complic 10/28/11 37 No Successful vaginal 3.487 kg Male 13 hrs [facility] 05/20/13 35 No Successful vaginal 2.608 kg Female 4.5 hrs [facility] 04/30/15 35 No Successful vaginal 2.722 kg Male 2 hrs [facility] 07/30/[address] Hutton Delivery Date: 10/28/11 On 03/22/19 @ 14:36 TEVIN ROY iol for pprom Delivery Date: 05/20/13 On 03/22/19 @ 14:38 TEVIN ROY iol for pprom Delivery Date: 04/30/15 On 03/22/19 @ 14:40 TEVIN ROY precipitous Delivery Date: 07/30/19 No notes to display Exam Narrative Exam Narrative: Vitals: Afebrile. Initial pulse and blood pressure elevated. Room air saturation 98%. Const: Obese female in NAD awake and alert. HEENT: NC/AT. Normal facial exam. Eyes: Pupils small but react. Neck: Supple. Trachea midline. Lungs: Normal respiratory effort. Lungs are clear. Mild right lateral chest tenderness. Cor: RRR without murmur/gallop. Good radial pulses. GI: Soft. NT/ND. No guarding or rebound. Neuro: A+O x 3. CN grossly in tact. Good strength and no focal deficit. Ext: No C/C/E. No calf tenderness. Skin: Warm and dry without rash. Course Vital Signs Vital signs: Vital Signs Temperature 98.8 F 09/12/19 20:28 Pulse 120 H 09/12/19 20:28 Respiratory Rate 15 09/12/19 20:28 Blood Pressure 149/75 H 09/12/19 20:28 Pulse Oximetry 98 09/12/19 20:28 Temperature 98.8 F 09/12/19 20:28 Temperature Source Temporal Artery Scan 09/12/19 20:28 Pulse 120 H 09/12/19 20:28 Respiratory Rate 20 09/12/19 20:39 Respiratory Effort Non-Labored 09/12/19 20:39 Respiratory Depth Normal 09/12/19 20:39 Respiratory Pattern Normal 09/12/19 20:39 Blood Pressure 149/75 H 09/12/19 20:28 Blood Pressure Position Sitting 09/12/19 20:28 Pulse Oximetry 98 09/12/19 20:28 Oxygen Delivery Method Room Air 09/12/19 20:28 Oxygen Flow Rate 0 09/12/19 20:28 Pain Level 5 09/12/19 20:28
[2019-09-12] MEDS: Naloxone 0.4 MG/ML VIAL (21:30)
[2019-09-12] MEDS: Normal Saline Flush 10 ML SYR IVP (22:03)
[2019-09-12] MEDS: Normal Saline 1,000 ML 1000 ML IV (22:03)
--- NOTE | 2019-09-12 22:16 | NUR.NOTE ---
Nursing Note: At approx 2100, pt was walked to bathroom by . She came out shortly after and walked up to this scribe and asked if she could go back into the bathroom because she had to have a bowel movement. She stated she felt like she had the urge. I informed her yes she could, but asked tech to remain outside of the door due to patient acting very suspicious and jumpy.Tech ambulated her back to bed minutes later. This scribe went in to start IV as ordered and patient began to nod off, unable to hold herself up and required frequent stimulation. MARTINEZ Cerda assisted this scribe with inserted. At this point I noted that patient's rhythm was in bigeminy and called for MD to enter room. Pt's lips were cyanotic and MD ordered Narcan. Pt's oxygen saturations was in 50's, NRB applied. This scribe administered half dose of Narcan and patient came to and was highly agitated asking what she had been given. This scribe told her Narcan and she became extremely irate stating that Narcan is only for addicts and those who take drugs routinely. This scribe educated her on the effects of opioids even with just one use and the fact that she had utilized heroin, crack, and percocet was enough to stop her respiratory drive. Pt calmed down. classroom monitor who performed CPR on her had some questions and she allowed him to come and question her. She became highly agitated, yelling at the real estate representative and was attempting to rip out IV. Pt required redirection from MD and this scribe to calm down and it was explained that if she left she had a high likelihood of stopping breathing again or having a cardiac event as there were changes on her EKG. Pt is very concerned about losing her children to [facility] and wants to leave for this reason. Is agreeable to staying for remainder of tests at this point.
--- NOTE | 2019-09-12 22:17 | DI.RAD_ITS ---
EXAM: XR CHEST 2V PA LATERAL INDICATION: chest pain after CPR. COMPARISON: XR CHEST 2V PA LATERAL from 10/11/2018 TECHNIQUE: 2D digital imaging was performed. FINDINGS: The heart size and pulmonary vasculature are within normal limits. Lungs are clear. No effusion or pneumothorax is identified. The bones are unremarkable. IMPRESSION: No acute pulmonary process.
[2019-09-12 22:34] LABS: Abs Immature Grans 0.09 k/cumm (0.0-0.09); Absolute Eosinophil Count 0.02 k/cumm (0.0-0.7); Absolute Lymphocyte Count 1.07 k/cumm (1.2-3.4); Absolute Neutrophil Count 13.38 k/cumm (1.2-6.7); Basophils % 0.1; Eosinophils % 0.1; HCT 37.1 % (36.0-46.0); HGB 11.8 g/dL (12.0-15.5); Immature Grans % 0.6; Lymphocytes % 6.9; Mean Corp. HGB Concentration 31.8 g/dL (32.0-36.0); Mean Corpuscular Hemoglobin 27.6 pg (27.0-33.0); Mean Corpuscular Volume 86.7 fL (80-95); Mean Platelet Volume 10.5 fL (8.0-11.0); Monocytes % 6.2; Neutrophils % 86.1; Platelet Count 298 x1000/uL (130-400); RBC 4.28 m/cumm (4.00-5.20); RBC Distribution Width 14.3 % (11.7-14.6); White Blood Cell Count 15.54 k/cumm (4.4-10.8)
[2019-09-12 22:42] LABS: ALT 29 U/L (14-59); AST 20 U/L (15-37); Absolute Basophil Count 0.02 k/cumm (0.0-0.2); Absolute Monocyte Count 0.96 k/cumm (0.11-0.7); Alkaline Phosphatase 59 U/L (46-116); Anion Gap 7.5 mmol/L (3-11); BUN 15 mg/dL (7-18); Bilirubin, Total 0.4 mg/dL (0.2-1.0); CO2 28.5 mmol/L (21.0-32.0); CREATININE 1.16 mg/dL (0.55-1.02); Calcium 8.4 mg/dL (8.5-10.1); Chloride 106 mmol/L (98-107); Estimated GFR 54.85 (mL/min/1.73m2); Glucose 124 mg/dL (70-100); Magnesium 1.8 mg/dL (1.8-2.4); Potassium 3.8 mmol/L (3.5-5.1); Sodium 142 mmol/L (136-145); Total Protein 7.6 g/dL (6.4-8.2); Troponin I 0.05 ng/mL (0.00-0.06)
--- NOTE | 2019-09-12 22:54 | DI.VRAD_ITS ---
PROCEDURE INFORMATION: Exam: XR Chest, 2 Views Exam date and time: 09/12/2019 10:18 PM Clinical history: 29 years old, female; Other: Chest pain after cpr TECHNIQUE: Imaging protocol: XR of the chest Views: 2 views. COMPARISON: CR XR CHEST 2V PA LATERAL 10/11/2018 9:02 AM FINDINGS: Lungs: Normal pulmonary expansion. Pulmonary vasculature grossly normal. No infiltrates. Pleural space: No pleural effusion. No pneumothorax. Heart/Mediastinum: Heart size normal. No tracheal/mediastinal shift. Bones/joints: No acute osseous abnormalities are identified. IMPRESSION: No acute thoracic process. Dictated and Authenticated by: Wero Chris MD. Ordering:NOLAN Rogel MD
[2019-09-13] VITALS: PULSE 83; RESP 15; O2SAT 94
--- NOTE | 2019-09-13 | NUR.NOTE ---
Nursing Note:Pt given dinner tray.
[2019-09-13 00:10] VITALS: PULSE 95; RESP 37; O2SAT 96
[2019-09-13 00:20] VITALS: PULSE 94; RESP 24; O2SAT 96
[2019-09-13 00:30] VITALS: PULSE 95; RESP 16; O2SAT 96
--- NOTE | 2019-09-13 00:37 | NUR.NOTE ---
Nursing Note: Pt resting in bed, talking on phone. VSS, will continue to monitor.
[2019-09-13 01:59] LABS: Troponin I 0.05 ng/mL (0.00-0.06)
[2019-09-13 02:15] VITALS: BP 117/57; PULSE 87; RESP 16; TEMP 37.1; O2SAT 96
== END 2019-09-13 02:15 | disposition home or self-care (01) ==
PROVIDERS: Emergency Provider Emergency Medicine; PCP Family Medicine
DX: T40.1X1A Poisoning by heroin, accidental (unintentional), initial encounter (principal); F19.10 Other psychoactive substance abuse, uncomplicated
CPT/HCPCS: 36415; 80053; 93005; 96361; 96374; 99285; 71046; 83735; 84484; 85025; 93010; J2310

== ENCOUNTER 2020-08-28 01:17 | Outpatient (CLI) | payer MEDICAID, SELFPAY ==
--- NOTE | 2020-08-28 08:15 | DI.RAD_ITS ---
EXAM: XR KNEE RT 3V AP,LAT,LANDEN CLINICAL HISTORY: RT KNEE PAIN,[id number]. TECHNIQUE: 2D digital imaging was performed. COMPARISON: CR RIGHT KNEE 3 VIEWS from 01/04/2014 FINDINGS: BONES: No acute fracture is present. No bony destructive lesion is seen. There is an enthesophyte at the superior patella. JOINTS: The knee is normally aligned. No joint effusion is seen. Marginal osteophytes are seen in the femoral tibial joints. Mild narrowing of the lateral femoral tibial joint. SOFT TISSUE: Normal. IMPRESSION: Mild degenerative changes of the right knee. DATA REPOSITORY: RADIATION DOSE DELIVERED:
== END 2020-08-28 01:37 ==
PROVIDERS: PCP Family Medicine; Visit Provider Nurse Practitioner Family
DX: M17.11 Unilateral primary osteoarthritis, right knee (principal); M25.561 Pain in right knee
CPT/HCPCS: 73562

== ENCOUNTER 2020-08-29 14:17 | Emergency (ER) | payer MEDICAID, SELFPAY ==
[2020-08-29 14:25] VITALS: BP 130/86; PULSE 96; TEMP 36.6; O2SAT 95
--- NOTE | 2020-08-29 15:19 | DI.RAD_ITS ---
EXAM: XR FOOT RT COMPLETE CLINICAL HISTORY: pain, no trauma. TECHNIQUE: 2D digital imaging was performed. COMPARISON: No exams were available for comparison FINDINGS: BONES: No acute fracture is present. No bony destructive lesion is seen. Small plantar calcaneal spu r. Small enthesophyte at the Achilles insertion site. JOINTS: No dislocation present. SOFT TISSUE: Normal. IMPRESSION: No acute abnormality. DATA REPOSITORY: RADIATION DOSE DELIVERED:
--- NOTE | 2020-08-29 15:33 | W.ED.GENAD ---
Discharge Plan Disposition Patient Disposition: HOME Condition: Stable Discharge Details Clinical Impression: Bone spur of inferior portion of right calcaneus Primary Care Provider: Meño Goodman ED Provider: Amrik Solis Home Meds and New Rx's Prescriptions: Continued bupropion HCl [Wellbutrin XL] 300 mg tablet extended release 24 hr 300 mg PO QAM Qty: 30 RF: 11 clobetasol 0.05 % cream 1 applic TP QHS PRN (Reason: scalp dermatiis) Qty: 30 RF: 1 (DME) Knee Support Brace Misc See Rx Instructions .ROUTE .MEDSUPPLY Qty: 1 RF: 0 Discharge Instructions Instructions: Plantar Fasciitis (ED) Additional Instructions: [id number] Tylenol and/or Motrin as directed for discomfort. Rest, elevate, cool and/or warm compresses every 2 hours for 20 minutes. Use crutches as needed, advance activity as tolerated. We discussed therapy using a tennis ball to roll out the bottom of your foot, also using a towel to help stretcher foot. Please watch for new or worsening symptoms and return to the ER for any concerns. I do recommend that you reach out your primary care provider tomorrow for prompt outpatient reevaluation. If conservative measures do not help your symptoms you may need an orthopedic, I will give you his name and number Referrals: Simon Francisco MD [ [facility] STAFF PHYSICIAN] - Discharge Data Discharge Date/Time-TO BE ENTERED AT DEPARTURE: 08/29/20 16:04 Medical Decision Making 30-year-old female presents with right foot pain that began yesterday, she reports that she is been walking on it more than usual. No obvious trauma. Clinically this appears to be plantar fasciitis, bone spur, etc. Will obtain x-ray for further evaluation. Low suspicion for acute fracture acute fracture. For obtained, reviewed by me as positive bone spur. No obvious fracture. Confirmed by radiology. Discussed x-ray findings with patient. Patient requests crutches. Crutches with teaching given. We discussed conservative therapy and the importance of orthopedic follow-up if no improvement with conservative therapy. No additional questions or concerns, comfortable discharge. Medical Records Medical records reviewed: Yes I reviewed the patient's medical records. HPI General Mode of arrival: wheelchair. Date/Time Provider Initiated Documentation: 08/29/20 14:45. Limitations to Documentation: no limitations. Information obtained by: patient. HPI Narrative: 30-year-old female with past medical history that includes asthma, diabetes and , depression, presenting to the ER today for right foot pain. She states that the foot pain began yesterday, there is no obvious trauma but she has been walking more than usual and has been on her feet all day long. She states that the pain is on the bottom of her foot near her heel. Pain is moderate at rest worse with bearing weight. She denies any fever, other joint pain, numbness, tingling, weakness. She has not taken any [id number] medications for her symptoms. Related Data Home Medications Medication Instructions Recorded Confirmed bupropion HCl 300 mg 24 hr tablet, 300 mg PO QAM #30 tab 10/25/19 08/29/20 extended release clobetasol 0.05 % topical cream 1 applic TP QHS PRN #30 gm 10/25/19 08/29/20 leg brace #1 ea 08/21/20 08/21/20 Previous Rx's Medication Instructions Recorded bupropion HCl 300 mg 24 hr tablet, 300 mg PO QAM #30 tab 10/25/19 extended release clobetasol 0.05 % topical cream 1 applic TP QHS PRN #30 gm 10/25/19 leg brace #1 ea 08/21/20 Allergies Allergy/AdvReac Type Severity Reaction Status Date / Time hydroxyprogesterone Allergy Severe Hives Verified 08/29/20 14:34 [From Lizet] General Stated Complaint: Orthopedic FELIZ: 4 Review of Systems Constitutional Constitutional: Denies fever(s) and Denies weakness Musculoskeletal Musculoskeletal: Denies numbness and Denies tingling Integumentary/Breasts Skin/Breast: Denies rash Neurologic Neurologic: Denies numbness, Denies tingling and Denies weakness [facility] Medical History Asthma Diabetes in Major depressive disorder with current active episode (06/22/18) Surgical History Status post emergency section Social History Smoking/Tobacco Use Status: Current every day Tobacco Type: cigarettes Alcohol Intake: current Alcohol Intake frequency: holidays/special occasions only Drug use: Never Substance use type: marijuana, crack/cocaine, heroin, opiates, prescription drug and other Details: COCAINE/CRACK (VERY RARELY AT A [employer]),OPIATES, RX FOR BACK PAIN, NOT HERS Household members: family What type of physical activity do you participate in: none Seatbelt use: sometimes Do you feel safe at home: Yes Do you feel safe in your relationship?: Yes Female Reproductive History Menstrual Age of Menarche: 11 Duration of menses: 3-5 days History History 4 Para 3 Hx # Term Pregnancies 1 Multiple births 0 Hx # Pregnancies 2 Ectopic pregnancies 0 AB induced 0 Hx Number of Living Children 4 AB spontaneous 0 Past Pregnancies Del. Date GA/Weeks # Outcome Route Wgt Sex Labor Lgth Anesthesia Location Prov Complic 10/28/11 37 No Successful vaginal 3486.991 g Male 13 hrs [facility] 05/20/13 35 No Successful vaginal 2608.156 g Female 4.5 hrs [facility] 04/30/15 35 No Successful vaginal 2721.554 g Male 2 hrs [facility] 07/30/[address] Hutton Delivery Date: 10/28/11 iol for pprom LELONG,ANEA Delivery Date: 05/20/13 iol for pprom LELONG,ANEA Delivery Date: 04/30/15 precipitous LELONG,ANEA Delivery Date: 07/30/19 No notes to display Exam Const General: cooperative, healthy appearing, comfortable and no acute distress Orientation: alert and awake [facility] Head: normal to inspection, normocephalic and atraumatic Mouth: moist mucous membranes Eyes Eyelids: eyelids normal Conjunctivae: conjunctivae normal Neck Neck: normal visual inspection, trachea midline and supple Resp Effort & Inspection: normal respiratory effort and able to speak in complete sentences Cardio Rate: regular rate Rhythm: regular rhythm Skin General skin exam: no rashes or lesions noted Neuro General: patient alert, patient awake, moves all extremities and no focal motor deficits Sensory Exam: no sensory deficits noted Extrem Ankle/foot/toe images: 1. Patient with point tenderness. There is no erythema, warmth, swelling. No induration or fluctuance. Neuro, vascular, tendon intact. Full range of motion. Psych Appearance: grossly normal Mental Status: mental status grossly normal Course Vital Signs Vital signs: Vital Signs Temperature 36.6 C 08/29/20 14:25 Pulse 96 H 08/29/20 14:25 Blood Pressure 130/86 08/29/20 14:25 Pulse Oximetry 95 08/29/20 14:25 Temperature 36.6 C 08/29/20 14:25 Temperature Source Temporal Artery Scan 08/29/20 14:25 Pulse 96 H 08/29/20 14:25 Respiratory Effort Non-Labored 08/29/20 14:30 Blood Pressure 130/86 08/29/20 14:25 Blood Pressure Position Sitting 08/29/20 14:25 Pulse Oximetry 95 08/29/20 14:25 Oxygen Delivery Method Room Air 08/29/20 14:25 Oxygen Flow Rate 0 08/29/20 14:25 Pain Level 7 08/29/20 14:33 Lab/Test Results Lab/Test Results: POC- Test(urine) Negative
== END 2020-08-29 16:04 | disposition home or self-care (01) ==
PROVIDERS: Emergency Provider Physician Assistant; PCP Family Medicine
DX: M77.31 Calcaneal spur, right foot (principal)
CPT/HCPCS: 81025; 99283; 73630; E0114

== ENCOUNTER 2020-09-11 03:33 | Outpatient (CLI) | payer MEDICAID, SELFPAY ==
[2020-09-11 12:17] LABS: Abs Immature Grans 0.04 10^3/uL (0.0-0.06); Absolute Basophil Count 0.02 10^3/uL (0.0-0.2); Absolute Eosinophil Count 0.13 10^3/uL (0.0-0.7); Absolute Lymphocyte Count 2.19 10^3/uL (1.2-3.4); Absolute Monocyte Count 0.54 10^3/uL (0.1-0.8); Absolute Neutrophil Count 5.81 10^3/uL (1.2-6.7); Basophils % 0.2; Eosinophils % 1.5; HCT 39.4 % (36.0-46.0); HGB 13.2 g/dL (11.2-15.7); Immature Grans % 0.5; Lymphocytes % 25.1; MCH 29.7 pg (27.0-33.0); MCHC 33.5 % (32.0-36.0); MCV 88.7 fL (80-95); MPV 10.9 fL (8.0-11.0); Monocytes % 6.2; Neutrophils % 66.5; Nucleated RBC 0 %; Platelet Count 289 10^3/uL (130-400); RBC 4.44 10^6/uL (3.93-5.22); RDW-SD 42.1 fL; WBC 8.73 10^3/uL (4.4-10.8)
[2020-09-11 12:33] LABS: Hemoglobin A1C 5.3 % (<5.7)
[2020-09-11 13:10] LABS: ALT 23 U/L (14-59); AST 11 U/L (15-37); Albumin 3.9 g/dL (3.4-5.0); Alkaline Phosphatase 69 U/L (46-116); Anion Gap 4.6 mmol/L (3-11); BUN 14 mg/dL (7-18); Bilirubin, Total 0.6 mg/dL (0.2-1.0); CO2 29.4 mmol/L (21.0-32.0); Calcium 8.7 mg/dL (8.5-10.1); Chloride 106 mmol/L (98-107); Glucose 128 mg/dL (74-106); Potassium 4.2 mmol/L (3.5-5.1); Sodium 140 mmol/L (136-145); TSH (W/Ref FT4) 1.01 uIU/mL (0.36-3.74); Total Protein 7.1 g/dL (6.4-8.2)
[2020-09-11 13:34] LABS: Vitamin B12 256 pg/mL (193-986)
== END 2020-09-11 03:53 ==
PROVIDERS: PCP Family Medicine; Visit Provider Family Medicine
DX: F32.9 Major depressive disorder, single episode, unspecified (principal); R53.83 Other fatigue
CPT/HCPCS: 80053; 82306; 82607; 83036; 84443; 85025

== ENCOUNTER 2020-10-16 00:20 | Emergency (ER) | payer MEDICAID, SELFPAY ==
--- NOTE | 2020-10-16 00:15 | DI.CT_ITS ---
EXAM: CT RENAL COLIC WO CLINICAL HISTORY: right flank pain. TECHNIQUE: Imaging Protocol: Axial computed tomography images with coronal and sagittal reformatted images were created and reviewed. COMPARISON: No exams were available for comparison FINDINGS: ABDOMEN: Visualized lung bases: Clear There is no ascites. Liver size is slightly prominent. Liver is hypodense implying an element of st eatosis. There are no obvious focal hepatic lesions evident on this noninfused study. There is no o bvious gallbladder pathology. CBD is not dilated. Pancreas appears unremarkable. Spleen size is up per normal. No obvious intrasplenic lesions. No significant adrenal masses. Left kidney appears un remarkable. There is mild hydronephrosis of the right kidney and also right hydroureter. The culpri t calculus is in the distal right ureter proximal to the UVJ and measures approximately 5 millimeters . The abdominal aorta is not enlarged.. No gross para-aortic adenopathy. PELVIS: Urinary bladder is not distended.. There are no calculi in the urinary bladder. Uterus and adnexal regions appear age-appropriate. There is no free fluid in the cul-de-sac. No evidence for appendici tis or diverticulitis.. There is slightly enlarged external iliac lymph nodes, measuring up to 1.3 c entimetres. Few small mesenteric lymph nodes are also noted. Osseous: No lytic osseous lesions evident. IMPRESSION: 1. 5 millimeter distal right ureter calculus proximal to the UVJ with mild hydronephrosis and hydrour eter above this level. There are no calculi evident in either kidney. 2. Mild paddle megaly with fatty infiltration. Correlation with appropriate patent blood work recomm ended. 3. Mildly enlarged external iliac lymph nodes. RADIATION DOSE DELIVERED: 1,438.8mGy.cm Total DLP DATA REPOSITORY: All CT scans at this facility are submitted to the National Radiology Data Registry (NRDR) Dose Index Registry (DIR) with the [employer] (ACR). RADIATION OPTIMIZATION: All CT scans at this facility use at least one of these dose optimization te chniques: automated exposure control; mA and/or kV adjustment per patient size (includes targeted exa ms where dose is matched to clinical indication); or iterative reconstruction.
[2020-10-16 00:21] VITALS: BP 138/66; PULSE 71; RESP 16; TEMP 36.6; O2SAT 98
--- NOTE | 2020-10-16 00:29 | W.ED.GENAD ---
Discharge Plan Disposition Patient Disposition: HOME Condition: Stable Discharge Details Clinical Impression: Kidney stone on right side Primary Care Provider: Meño Goodman ED Provider: Jose Martin Reynoso Home Meds and New Rx's Prescriptions: New diazepam [Valium] 10 mg tablet 10 mg PO TID PRN (Reason: muscle spasm) Qty: 20 RF: 0 No Action clobetasol 0.05 % cream 1 applic TP QHS PRN (Reason: scalp dermatiis) Qty: 30 RF: 1 (DME) Knee Support Brace Misc See Rx Instructions .ROUTE .MEDSUPPLY Qty: 1 RF: 0 sertraline 50 mg tablet 50 mg PO DAILY RF: 0 cholecalciferol (vitamin D3) 125 mcg (5,000 unit) capsule 125 mcg PO DAILY Qty: 90 RF: 1 Discharge Instructions Instructions: Diazepam (By mouth), Kidney Stones (ED) Additional Instructions: you should be contacted with an appointment for urology within 1-2 weeks if you feel significant increase in pain, fevers or feel more ill return to the emergency department you can take 1000mg tylenol and 600mg ibuprofen every 6 hours for pain as needed Medical Decision Making 30 yo female who states she has intermittent problems with her back states she acutely had worsening right lower back pain without trauma starting around 6pm last night. Denies fevers, difficulty urinating, dysuria, hematuria. Denies ivdu, weakness, paresthesia. Localizes the pain to the right lumbar region and has no midline pain, normal reflexes, no saddle anesthesia and normal sensation. No abdominal tenderness. Suspect likely muscle spasm vs musculoskeletal pain but given reported acute onset of pain will obtain renal colic ct to evaluate for possible kidney stone and UA to evaluate for possible uti/early yelo though has no cva tenderness. No findings to suggest cauda equina, SEA or other spinal cord pathology ct shows 5mm right distal kidney stone, they also question undedistention of the colon vs colitis but has no abdominal tenderness or diarrhea so suspect underdistention. She is feeling much improved sleeping on reassessment. Advised of the findings and she is comfortable with d/c. She would prefer to take ibuprofen and valium rather than opiates. Will d/c and have her f/u with urology within 1-2 weeks, and return precautions given Differential Diagnosis Differential Diagnosis: kidney stone, pyelo, back spasm Medical Records Medical records reviewed: Yes I reviewed the patient's medical records. Imaging Data Radiologic Study: Attestation: I personally reviewed and interpreted this imaging study as follows: Imaging: CT Scan Radiologist's impression: IMPRESSION: 1. 5 mm calcification within the distal right ureter proximal to the UVJ with changes of obstructive nephropathy as discussed. 2. Symmetric, mildly enlarged external iliac lymph nodes as discussed. Nonspecific finding, possibly reactive. 3. Mild hepatomegaly with fatty infiltration. 4. Borderline splenomegaly. 5. Mild diffuse, nonfocal mural thickening of the left hemicolon, however without significant pericolonic inflammatory stranding and underdistended limiting evaluation. Suspect changes of underdistention, however correlate with symptoms to exclude colitis. Lab Data Lab results reviewed: Yes I reviewed the patient's lab results. HPI General Mode of arrival: EMS. Date/Time Provider Initiated Documentation: 10/16/20 00:26. Limitations to Documentation: no limitations. Information obtained by: patient. History of Present Illness 30 year old F presents to the emergency department with the chief complaint of back pain, described as moderate, Patient started experiencing this hour(s) (6) and it has been constant. No relieving factors improve symptom(s), No exacerbating factors reported . Patient did receive the following treatments prior to arrival, none Related Data Home Medications Medication Instructions Recorded Confirmed clobetasol 0.05 % topical cream 1 applic TP QHS PRN #30 gm 10/25/19 10/08/20 leg brace #1 ea 08/21/20 10/08/20 cholecalciferol (vitamin D3) 125 125 mcg PO DAILY #90 cap 10/08/20 10/08/20 mcg (5,000 unit) capsule sertraline 50 mg tablet 50 mg PO DAILY 10/08/20 10/08/20 diazepam [Valium] 10 mg PO TID PRN #20 tab 10/16/20 Previous Rx's Medication Instructions Recorded clobetasol 0.05 % topical cream 1 applic TP QHS PRN #30 gm 10/25/19 leg brace #1 ea 08/21/20 cholecalciferol (vitamin D3) 125 125 mcg PO DAILY #90 cap 10/08/20 mcg (5,000 unit) capsule diazepam [Valium] 10 mg PO TID PRN #20 tab 10/16/20 Allergies Allergy/AdvReac Type Severity Reaction Status Date / Time hydroxyprogesterone Allergy Severe Hives Verified 10/08/20 13:48 [From Lizet] General Stated Complaint: Nk/Back Pain FELIZ: 4 Review of Systems All systems reviewed & are unremarkable except as noted in HPI and below Constitutional Constitutional: Denies chills, Denies fever(s) and Denies weakness Cardiovascular Cardiovascular: Denies chest pain and Denies dyspnea Respiratory Respiratory: Denies cough and Denies dyspnea Gastrointestinal Gastrointestinal: Denies abdominal pain, Denies nausea and Denies vomiting Musculoskeletal Musculoskeletal: Denies joint swelling Neurologic Neurologic: Denies weakness Psychiatric Psychiatric: Denies depression [facility] Medical History (Updated 10/16/20 @ 01:44 by Jose Martin Reynoso MD) Asthma Diabetes in Major depressive disorder with current active episode (06/22/18) Surgical History Status post emergency section Social History Smoking/Tobacco Use Status: Current every day Tobacco Type: cigarettes Smoking risk assessment performed?: Yes Alcohol Intake: current Alcohol Intake frequency: holidays/special occasions only Drug use: Socially Substance use type: marijuana Household members: family What type of physical activity do you participate in: none Seatbelt use: sometimes Do you feel safe at home: Yes Do you feel safe in your relationship?: Yes Female Reproductive History Menstrual Age of Menarche: 11 Duration of menses: 3-5 days History History 4 Para 3 Hx # Term Pregnancies 1 Multiple births 0 Hx # Pregnancies 2 Ectopic pregnancies 0 AB induced 0 Hx Number of Living Children 4 AB spontaneous 0 Past Pregnancies Del. Date GA/Weeks # Outcome Route Wgt Sex Labor Lgth Anesthesia Location Prov Complic 10/28/11 37 No Successful vaginal 3486.991 g Male 13 hrs [facility] 05/20/13 35 No Successful vaginal 2608.156 g Female 4.5 hrs [facility] 04/30/15 35 No Successful vaginal 2721.554 g Male 2 hrs [facility] 07/30/[address] Hutton Delivery Date: 10/28/11 iol for pprom LELONG,ANEA Delivery Date: 05/20/13 iol for pprom LELONG,ANEA Delivery Date: 04/30/15 precipitTEVIN Beaulieu Delivery Date: 07/30/19 No notes to display Exam Const General: no acute distress Orientation: alert HENMT Head: normal to inspection Ears: external ears normal General nose exam: external nose normal Mouth: moist mucous membranes Eyes General: appearance normal, both eyes and all related structures Neck Neck: normal visual inspection Resp Effort & Inspection: normal respiratory effort and able to speak in complete sentences Cardio Rate: regular rate Back/Spine/Pelvis Back: no CVA tenderness Skin General skin exam: no rashes or lesions noted Neuro General: patient alert and patient oriented x3 Extrem General: normal to inspection Psych Mental Status: mental status grossly normal Course Vital Signs Vital signs: Vital Signs Temperature 36.6 C 10/16/20 00:21 Pulse 71 10/16/20 00:21 Respiratory Rate 16 10/16/20 00:21 Blood Pressure 138/66 10/16/20 00:21 Pulse Oximetry 98 10/16/20 00:21 Temperature 36.6 C 10/16/20 00:21 Temperature Source Temporal Artery Scan 10/16/20 00:21 Pulse 71 10/16/20 00:21 Respiratory Rate 16 10/16/20 00:21 Respiratory Effort 10/16/20 00:24 Blood Pressure 138/66 10/16/20 00:21 Blood Pressure Position Supine 10/16/20 00:21 Pulse Oximetry 98 10/16/20 00:21 Oxygen Delivery Method Room Air 10/16/20 00:21 Oxygen Flow Rate 0 10/16/20 00:21 Pain Level 10 10/16/20 00:21
[2020-10-16] MEDS: diazePAM 10 MG/2 ML SYR IM (00:38)
[2020-10-16] MEDS: Ketorolac 15 MG/ML VIAL IM (00:39)
[2020-10-16 01:05] LABS: Bilirubin Negative (Negative); Blood Large (Negative); Clarity Clear (Clear); Glucose Negative (Negative); Ketones Negative (Negative); Leukocyte Esterase Negative (Negative); Nitrite Negative (Negative); Specific Gravity >= 1.030 (1.005-1.025); Urobilinogen 0.2 EU/dL (Up TO 0.2); pH 5.5 (5-8)
[2020-10-16 01:06] LABS: Bacteria Few HPF (Negative); C & S Indicated? No; Casts Negative LPF (Negative); Crystals Negative HPF (Negative); Epithelial Cells Few HPF (Negative); Mucus Trace (Negative); WBC Negative HPF (0-5)
--- NOTE | 2020-10-16 01:26 | DI.VRAD_ITS ---
PROCEDURE INFORMATION: Exam: CT Abdomen And Pelvis Without Contrast Exam date and time: 10/16/2020 12:55 AM Age: 30 years old Clinical indication: Prior surgery; Surgery date: 6+ months; Surgery type: C section; Patient HX: Right flank pain for 7 hours TECHNIQUE: Imaging protocol: Computed tomography of the abdomen and pelvis without contrast. Radiation optimization: All CT scans at this facility use at least one of these dose optimization techniques: automated exposure control; mA and/or kV adjustment per patient size (includes targeted exams where dose is matched to clinical indication); or iterative reconstruction. COMPARISON: US OB biophysical profile 07/21/2019 9:07 AM FINDINGS: Lungs: Lung bases are clear. Mediastinal space: There is minute hiatal hernia with associated circumferential mural thickening of the distal esophagus, correlate clinically for history of reflux and/or esophagitis. Liver: There is diffuse hypoattenuation of the liver with suggestion of scattered focal fatty sparing consistent with fatty infiltration. The liver is mildly enlarged with right hepatic lobe measuring 21.9 cm craniocaudad. There is no hepatic mass, however evaluation is mildly limited by lack of intravenous contrast. Gallbladder and bile ducts: Gallbladder is nondistended limiting evaluation. No focal inflammatory change in the gallbladder fossa. No biliary dilation. Pancreas: Unremarkable. No ductal dilation. Spleen: There is borderline enlargement of the spleen measuring 13.8 cm AP by 9.8 cm transverse by 11.9 cm craniocaudad. No splenic mass, however evaluation mildly limited by lack of intravenous contrast. Adrenal glands: Normal. No mass. Kidneys and ureters: There is mild asymmetric right renal enlargement and perinephric stranding with mild asymmetric right hydroureteronephrosis. Within the distal right ureter, proximal to the UVJ, there is 5 mm by 3 mm (series 4, image 79) by 3 mm (series 2, image 121) renal calcification with more focal periureteral inflammatory stranding. No renal calcification. No left-sided hydronephrosis. Stomach and bowel: There is nonfocal mural thickening extending from the proximal transverse colon distally to the sigmoid colon, however without significant pericolonic inflammatory stranding and underdistended limiting evaluation. Otherwise no focal colonic mural thickening. No obstruction. Appendix: No evidence of acute appendicitis. Intraperitoneal space: No free air. No significant fluid collection. Vasculature: Within normal limits. No abdominal aortic aneurysm. Lymph nodes: There are symmetric, mildly enlarged bilateral external iliac lymph nodes measuring up to 1.3 cm short axis (series 2, image 121, 123). No pathologically enlarged mesenteric lymphadenopathy. Several scattered prominent but nonpathologic by size criteria retroperitoneal lymph nodes. Urinary bladder: Bladder is nondistended limiting evaluation, otherwise unremarkable as visualized. Reproductive: Unremarkable as visualized. Bones/joints: Unremarkable. No acute fracture. Soft tissues: Trace/small fat containing umbilical hernia. IMPRESSION: 1. 5 mm calcification within the distal right ureter proximal to the UVJ with changes of obstructive nephropathy as discussed. 2. Symmetric, mildly enlarged external iliac lymph nodes as discussed. Nonspecific finding, possibly reactive. 3. Mild hepatomegaly with fatty infiltration. 4. Borderline splenomegaly. 5. Mild diffuse, nonfocal mural thickening of the left hemicolon, however without significant pericolonic inflammatory stranding and underdistended limiting evaluation. Suspect changes of underdistention, however correlate with symptoms to exclude colitis. Dictated and Authenticated by: Eliecer Combs MD. Ordering:KYE Philippe MD
--- NOTE | 2020-10-16 02:42 | NUR.NOTE ---
referral to urology for kidney stones was sent to cm. Sarah RIUZ. Nursing Note:
--- NOTE | 2020-10-16 18:11 | CMPROGNOTE_ITS ---
- If Service Date Differs Date of service: 10/16/20 Time of Service: 18:11 Care Management Progress Note Chanelle is seen in the ED today for kidney stones. At the request of ED provider, CM coordinates a referral to [facility] to assist patient in obtaining a follow up appointment.
== END 2020-10-16 01:49 | disposition home or self-care (01) ==
PROVIDERS: Emergency Provider Emergency Medicine; PCP Family Medicine
DX: N13.2 Hydronephrosis with renal and ureteral calculous obstruction (principal); N13.4 Hydroureter
CPT/HCPCS: 81025; 96372; 99284; 74176; 81003; 81015; J1885; J3360

== ENCOUNTER 2021-01-17 11:45 | Emergency (ER) | payer MEDICAID, SELFPAY ==
[2021-01-17 11:52] VITALS: BP 146/115; PULSE 90; RESP 18; TEMP 36.6; O2SAT 96
--- NOTE | 2021-01-17 11:53 | W.ED.GENAD ---
Discharge Plan Disposition Patient Disposition: HOME Condition: Good Discharge Details Clinical Impression: Laceration of buttock Primary Care Provider: Meño Goodman ED Provider: Anne Storey Home Meds and New Rx's Prescriptions: Continued clobetasol 0.05 % cream 1 applic TP QHS PRN (Reason: scalp dermatiis) Qty: 30 RF: 2 (DME) Knee Support Brace Misc See Rx Instructions .ROUTE .MEDSUPPLY Qty: 1 RF: 0 sertraline 50 mg tablet 50 mg PO DAILY RF: 0 cholecalciferol (vitamin D3) 125 mcg (5,000 unit) capsule 125 mcg PO DAILY Qty: 90 RF: 0 diazepam [Valium] 10 mg tablet 10 mg PO TID PRN (Reason: muscle spasm) Qty: 20 RF: 0 Discharge Instructions Instructions: Laceration (ED) Additional Instructions: Keep wound clean, dry, covered. Monitor for signs infection including redness, warmth, drainage, increased pain, fever/chills. If you develop these or the new/worsening symptoms please seek care urgently once again. Otherwise, please return in 10 days for suture removal and wound check. Referrals: Meño Goodman [Primary Care Provider] - Medical Decision Making Patient is a 30-year-old female past medical history significant for MRSA, heroin abuse, asthma, obesity, depression, presenting today with chief complaint of laceration. She reports that approximate 1 hour prior to arrival she actually dropped a kitchen knife and cut her left buttock. States that she did have some bleeding initially but it subsided. She states that she did take shower and cleanse the wound and applied napkins to the area. Last tetanus was 07/31/2019. On exam, patient appears anxious. She has a 1.5 cm linear laceration appears fairly superficial but does enter into subcutaneous tissue. No deep wound involvement. No surrounding erythema, warmth, drainage. She is tender over the area in question. No other area of trauma noted. No active bleeding. Minimal bleeding noted on her bandage. Patient I discussed wound care. Given its location, she and I did discuss this at length. She would like to avoid stitches if possible. Wound edges do easily reapproximate. I do feel that closure with adhesive could be attempted to feel that she will need to cover this after with a Band-Aid to help prevent it from rubbing on her pants. Patient I discussed risk/benefits as well as expected procedural steps associated with this. She voices understanding and wishes to proceed. Patient change her mind and would now like to undergo suture closure. Develop this is a reasonable. She denies discussed risk/benefits as well as expected procedural steps. She was understanding and wished to proceed. Please see procedure note. Wound was copiously irrigated and explored to base in a bloodless field no foreign body or debris noted. #2 simple interrupted stitches were placed. Reapproximated wound edges well. She has discussed care of the wound intact. We discussed return precautions, in particular signs and symptoms of infection. Have advised that she evaluate the area at least once per day and keep covered with a Band-Aid. Advised keeping area clean. All of her questions and concerns were addressed and she is in agreement with this plan. Patient left prior to discharge paperwork. She was given verbal instructions on a time limit. She reports that we mailed these toher. HPI General Mode of arrival: ambulatory. Date/Time Provider Initiated Documentation: 01/17/21 11:53. Limitations to Documentation: no limitations. Information obtained by: patient and RN notes reviewed. History of Present Illness 30 year old F presents to the emergency department with the chief complaint of Laceration left buttock, described as moderate, with intensity rated at 7. Quality is described as burning, and is localized to the buttocks and left. Patient reports no radiation. Patient started experiencing this hour(s) (1) and it has been constant. No relieving factors improve symptom(s), No exacerbating factors reported . Patient notes no other symptoms.. Patient did receive the following treatments prior to arrival, none Related Data Home Medications Medication Instructions Recorded Confirmed leg brace #1 ea 08/21/20 10/08/20 sertraline 50 mg tablet 50 mg PO DAILY 10/08/20 10/08/20 diazepam [Valium] 10 mg PO TID PRN #20 tab 10/16/20 clobetasol 0.05 % topical cream 1 applic TP QHS PRN #30 gm 10/23/20 10/23/20 cholecalciferol (vitamin D3) 125 125 mcg PO DAILY #90 cap 12/30/20 mcg (5,000 unit) capsule Previous Rx's Medication Instructions Recorded leg brace #1 ea 08/21/20 diazepam [Valium] 10 mg PO TID PRN #20 tab 10/16/20 clobetasol 0.05 % topical cream 1 applic TP QHS PRN #30 gm 10/23/20 cholecalciferol (vitamin D3) 125 125 mcg PO DAILY #90 cap 12/30/20 mcg (5,000 unit) capsule Allergies Allergy/AdvReac Type Severity Reaction Status Date / Time hydroxyprogesterone Allergy Severe Hives Verified 10/23/20 15:55 [From [place]] General FELIZ: 4 Review of Systems Constitutional Constitutional: Reports as per HPI, Denies chills and Denies fever(s) Musculoskeletal Musculoskeletal: Reports as per HPI Integumentary/Breasts Skin/Breast: Reports as per HPI Neurologic Neurologic: Reports as per HPI, Denies sensory deficit and Denies paresthesias [facility] Medical History (Updated 01/17/21 @ 12:57 by EDWINA Staples) Asthma Diabetes in Major depressive disorder with current active episode (06/22/18) Surgical History Status post emergency section Social History Smoking/Tobacco Use Status: Current every day Tobacco Type: cigarettes Smoking risk assessment performed?: Yes Alcohol Intake: current Alcohol Intake frequency: holidays/special occasions only Drug use: Socially Substance use type: marijuana Household members: family What type of physical activity do you participate in: none Seatbelt use: sometimes Do you feel safe at home: Yes Do you feel safe in your relationship?: Yes Female Reproductive History Menstrual Age of Menarche: 11 Duration of menses: 3-5 days History History 4 Para 3 Hx # Term Pregnancies 1 Multiple births 0 Hx # Pregnancies 2 Ectopic pregnancies 0 AB induced 0 Hx Number of Living Children 4 AB spontaneous 0 Past Pregnancies Del. Date GA/Weeks # Outcome Route Wgt Sex Labor Lgth Anesthesia Location Prov Complic 10/28/11 37 No Successful vaginal 3486.991 g Male 13 hrs [facility] 05/20/13 35 No Successful vaginal 2608.156 g Female 4.5 hrs [facility] 04/30/15 35 No Successful vaginal 2721.554 g Male 2 hrs [facility] 07/30/[address] Hutton Delivery Date: 10/28/11 iol for pprom LELONG,ANEA Delivery Date: 05/20/13 iol for pprom LELONG,ANEA Delivery Date: 04/30/15 precipitous LELONG,ANEA Delivery Date: 07/30/19 No notes to display Exam Const General: cooperative, healthy appearing, no acute distress, well developed and anxious Nutritional Appearance: well nourished and obese Orientation: alert and awake Resp Effort & Inspection: normal respiratory effort, able to speak in complete sentences and no respiratory distress Cardio Rate: regular rate Rhythm: regular rhythm Skin Trauma: laceration (As drawn below) Neuro General: patient alert and patient awake Cognition: normal cognition Speech: speech normal Gait: normal gait Sensory Exam: no sensory deficits noted Extrem Upper/lower leg/hip images: 1. Patient has a 1.5 cm linear laceration into the subcutaneous tissue. No deep structure involvement. No active bleeding. No surrounding erythema, warmth or drainage. Psych Appearance: grossly normal and well kempt Mental Status: mental status grossly normal Speech and Movement: speech and movement normal Procedures Laceration Laceration 1: Site: other (buttock) Side (If applicable): left Size (cm): 1.5 Description: linear Depth: simple, single layer Local Anesthetic: Lidocaine 1% Amount of anesthesia used (mL): 4 Pre-repair: wound explored, irrigated extensively and deep structures intact Skin layer closed with: nylon Size (cm): 5-0 Number of sutures: 2
== END 2021-01-17 12:49 | disposition home or self-care (01) ==
PROVIDERS: Emergency Provider Physician Assistant; PCP Family Medicine
DX: S31.821A Laceration without foreign body of left buttock, initial encounter (principal); W26.0XXA Contact with knife, initial encounter
CPT/HCPCS: 12001

== ENCOUNTER 2021-07-14 21:30 | Outpatient (REF) | payer MEDICAID, SELFPAY ==
[2021-07-16 16:48] LABS: COVID-19 RT-PCR UVMMC Result Negative (Negative)
== END 2021-07-14 21:31 | disposition home or self-care (01) ==
LOC: LBN 21:30
DX: Z20.822 Contact with and (suspected) exposure to COVID-19 (principal); R06.02 Shortness of breath
CPT/HCPCS: U0003

== ENCOUNTER 2022-02-04 19:10 | Outpatient (REF) | payer MEDICAID, SELFPAY ==
[2022-02-06 13:10] LABS: COVID-19 RT-PCR UVMMC Result Negative (Negative)
== END 2022-02-04 19:11 | disposition home or self-care (01) ==
LOC: LBN 19:10
PROVIDERS: Visit Provider Physician Assistant Medical
DX: L08.9 Local infection of the skin and subcutaneous tissue, unspecified (principal); Z20.822 Contact with and (suspected) exposure to COVID-19; R05.8 Other specified cough
CPT/HCPCS: 87077; U0003; 87070; 87186; 87205

== ENCOUNTER 2022-08-04 04:36 | Emergency (ER) | payer MEDICAID, SELFPAY ==
[2022-08-04 04:40] VITALS: PULSE 79; RESP 18; TEMP 36.8; O2SAT 93
--- NOTE | 2022-08-04 05:00 | DI.RAD_ITS ---
Exam(s) XR KNEE RT 3V AP,LAT,LANDEN EXAM: XR KNEE RT 3V AP,LAT,LANDEN CLINICAL HISTORY: slip, fall, knee pain, hx of meniscus repair. TECHNIQUE: 2D digital imaging was performed. COMPARISON: CR XR KNEE RT 3V AP,LAT,LANDEN from 08/28/2020 FINDINGS: 3 views No evidence of fracture nor joint effusion. There are some degenerative changes in the lateral herb rtment. There is no joint space narrowing but there are marginal osteophytes off the lateral compart ment. Other compartments unremarkable. Bone density normal. No osseous lesions. IMPRESSION: Some degenerative change in the lateral compartment as described above. DATA REPOSITORY: RADIATION DOSE DELIVERED:
--- NOTE | 2022-08-04 05:05 | ED.GENADUL_ITS ---
Discharge Plan Disposition Patient Disposition: HOME Condition: Improving Discharge Details Chief Complaint: Orthopedic Clinical Impression: Contusion of knee Primary Care Provider: Nelly Coto ED Provider: José Miguel Young Home Meds and New Rx's Prescriptions: No Action loratadine [Allergy Relief (loratadine)] 10 mg tablet 10 mg PO DAILY Qty: 30 2RF sertraline 100 mg tablet 100 mg PO DAILY Qty: 30 3RF sertraline 50 mg tablet 50 mg PO DAILY Qty: 30 3RF trazodone 50 mg tablet 50 mg PO QHS PRN (Reason: insomnia) Qty: 10 0RF Discharge Instructions Instructions: Contusion in Adults (ED) Additional Instructions: Please follow-up with your primary care physician. Medical Decision Making 31-year-old female history of right knee injury status post remote meniscal repair, presents after slip and fall from standing last evening/this morning, fell onto knee also hit head no loss of consciousness. Patient is alert and oriented, afebrile nontoxic, no headache no nausea no vomiting. Moving all extremities without deficit, possible slight effusion to right knee, no laxity, soft compartments, warm well perfused extremities. Likely knee contusion versus sprain versus strain low suspicion for dislocation or fracture. No evidence of serious intracranial injury from examination. Will observe patient will also obtain x-ray of right knee, IM Toradol, p.o. acetaminophen. Close reassessment likely home with follow-up 6: 10 patient resting comfortably no acute distress no evidence of fracture or dislocation. Home care instructions and return precautions given. HPI General Date/Time Provider Initiated Documentation: 08/04/22 05:03 . HPI Narrative: 31-year-old female history of right knee injury, status post meniscal repair several years ago, presents after slip and fall last evening/this morning, from standing, hit right knee also fell and hit head. No loss of conscious. Denies headache nausea vomiting. Is able to ambulate and bear weight on the leg. Related Data Home Medications Medication Instructions Recorded Confirmed loratadine 10 mg tablet (Allergy 10 mg PO DAILY #30 tabs 07/14/21 08/04/22 Relief (loratadine)) sertraline 100 mg tablet 100 mg PO DAILY anxiety #30 tabs 07/15/21 08/04/22 sertraline 50 mg tablet 50 mg PO DAILY #30 tabs 07/15/21 08/04/22 trazodone 50 mg tablet 50 mg PO QHS PRN insomnia #10 tabs 07/15/21 08/04/22 Previous Rx's Medication Instructions Recorded loratadine 10 mg tablet (Allergy 10 mg PO DAILY #30 tabs 07/14/21 Relief (loratadine)) sertraline 100 mg tablet 100 mg PO DAILY anxiety #30 tabs 07/15/21 sertraline 50 mg tablet 50 mg PO DAILY #30 tabs 07/15/21 trazodone 50 mg tablet 50 mg PO QHS PRN insomnia #10 tabs 07/15/21 Allergies Allergy/AdvReac Type Severity Reaction Status Date / Time hydroxyprogesterone Allergy Severe Hives Verified 08/04/22 04:51 [From [place]] General Stated Complaint: Orthopedic FELIZ: 4 Review of Systems Narrative: Review of Systems Constitutional: negative Eyes: negative ENT: negative Cardiovascular: negative Respiratory: negative Gastrointestinal: negative : negative Musculoskeletal: Knee pain Skin: negative Neurologic: negative Psych: negative PFSH All Active Problems (Updated 08/04/22 @ 06:10 by José Miguel Young MD) Contusion of knee (Acute) Living accommodation issues (Acute) URI (upper respiratory infection) (Acute) Fentanyl use disorder, mild, in early remission, abuse (Acute) Annual physical exam (Acute) Laceration of buttock (Acute) Plantar fasciitis of right foot (Acute) Psoriasis (Chronic) scalp Vitamin D deficiency (Acute) MRSA (methicillin resistant staph aureus) culture positive (Acute) Heroin abuse (Acute) Atypical squamous cells of undetermined significance (ASC-US) on cervical Pap smear (Acute) SUDHA 08/13/19 Repeat Pap PP Asthma (Chronic) Fatigue (Chronic) Seasonal allergies (Acute) Obesity (Acute) Migraine (Acute 01/20/12) Major depressive disorder with current active episode (Chronic 06/22/18) Medical History (Updated 08/04/22 @ 06:10 by José Miguel Young MD) Diabetes in High risk due to maternal drug abuse Outcome of delivery, single liveborn (04/30/15) labor (04/29/15) Supervision of other normal (10/22/14) Surgical History (Updated 07/16/21 @ 14:17 by Nelly Coto NP) Status post emergency section Family History (Updated 07/17/21 @ 13:13 by Peggy Castillo) Mother Alcohol use disorder Depression Father Alcohol use disorder Depression Brother Depression Son No problems noted. Son No problems noted. Daughter No problems noted. 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 Communication Needs: Corrective Lenses Pets and animals: Yes Pets and animals: cat(s) Sexually active: Yes Do you think of yourself as: straight/heterosexual Current gender identity: female What is your relationship status?: never How often do you talk on the phone with friends or family?: three or more times per week How often do you get together with friends or relatives?: decline to answer How often do you attend pentecostal or baptist services?: decline to answer Do you belong to any clubs or organized social groups?: no Panel score (0-1 are the most socially isolated patients): 1 What type of physical activity do you participate in: walking Duration: 30-45 minutes/day Una/Advent: No preference Seatbelt use: sometimes Drive 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 Date GA/Weeks # Preg Succ Route Wgt Sex Labor Lgth Anesth esia Location Prov Complic 10/28/11 37 No vaginal 3486.991 g Male 13 hrs n[facility] h-anea 05/20/13 35 No vaginal 2608.156 g Female 4.5 hrs n [facility] 04/30/15 35 No vaginal 2721.554 g Male 2 hrs [facility] -anea 07/30/[address] Henrietta torres Delivery Date: 10/28/11 Last Updated by: Roni Jackson CNM iol for pprom Delivery Date: 05/20/13 Last Updated by: Roni Jackson CNM iol for pprom Delivery Date: 04/30/15 Last Updated by: Roni Jackson CNM precipitous Exam Narrative Exam Narrative: Physical Examination General: alert, awake, cooperative, resting comfortably, no acute distress HEENT: normocephalic, atraumatic; PERRL, EOM intact, conjunctiva normal; no nasal discharge; moist mucous membranes, oral and pharyngeal mucosa normal, tolerating secretions Neck: supple, trachea midline; full ROM Chest: normal to inspection Respiratory: normal respiratory effort, speaking in full sentences, clear to auscultation, no wheezing, rales or rhonchi Cardiac: regular rate, regular rhythm, S1S2 intact, no murmurs rubs or gallops GI: abdomen soft, non-tender, non-distended; no palpable mass or hepatosplenomegaly Skin: no lesions, rashes or trauma appreciated Neuro: AAOx3, normal speech, moving all extremities Extremities: Flexion extension of knee intact, possible slight effusion, no laxity, no crepitus, soft compartments, warm well perfused sensate extremity Psych: Appropriate mood and affect Course Vital Signs Vital signs: Vital Signs Temperature 36.8 C 08/04/22 04:40 Pulse 79 08/04/22 04:40 Respiratory Rate 18 08/04/22 04:40 Pulse Oximetry 93 08/04/22 04:40 Temperature 36.8 C 08/04/22 04:40 Temperature Source Oral 08/04/22 04:40 Pulse 79 08/04/22 04:40 Respiratory Rate 18 08/04/22 04:40 Respiratory Effort 08/04/22 04:49 Blood Pressure Position Supine 08/04/22 04:40 Pulse Oximetry 93 08/04/22 04:40 Oxygen Delivery Method Room Air 08/04/22 04:40 Oxygen Flow Rate 0 08/04/22 04:40 Pain Level 6 08/04/22 04:49 Comment 08/04/22 04:40 Lab/Test Results Lab/Test Results: POC- Test(urine) Negative
[2022-08-04] MEDS: Acetaminophen 325 MG TAB 650 MG PO (05:29)
[2022-08-04] MEDS: Ketorolac 15 MG/ML VIAL IM (05:30)
--- NOTE | 2022-08-04 06:06 | DI.VRAD_ITS ---
PROCEDURE INFORMATION: Exam: XR Right Knee Exam date and time: 08/04/2022 5:18 AM Age: 31 years old Clinical indication: Right; Prior surgery; Surgery date: 6+ months; Surgery type: Meniscus repair; Patient HX: Slip, fall, knee pain TECHNIQUE: Imaging protocol: Radiologic exam of the Right knee. Views: 3 views. COMPARISON: CR XR KNEE RT 3V AP,LAT,LANDEN 08/28/2020 12:19 PM FINDINGS: Bones/joints: Normal. Soft tissues: Normal. IMPRESSION: No acute findings. Dictated and Authenticated by: Bruce Norwood MD. Ordering:GLORIA Valdez MD
== END 2022-08-04 06:16 | disposition home or self-care (01) ==
LOC: ER 06:29
PROVIDERS: Emergency Provider Emergency Medicine
DX: S80.01XA Contusion of right knee, initial encounter (principal); F17.210 Nicotine dependence, cigarettes, uncomplicated; Z32.02 Encounter for pregnancy test, result negative; W01.198A Fall on same level from slipping, tripping and stumbling with subsequent striking against other object, initial encounter
CPT/HCPCS: 73562; 81025; 96372; 99284; J1885

== ENCOUNTER 2023-01-05 05:49 | Emergency (ER) | payer MEDICAID, SELFPAY ==
[2023-01-05 05:53] VITALS: BP 147/59; PULSE 78; RESP 18; TEMP 36.8; O2SAT 99
--- NOTE | 2023-01-05 06:08 | ED.GENADUL_ITS ---
Discharge Plan Disposition Patient Disposition: Home Condition: Stable Discharge Details Clinical Impression: Body aches Primary Care Provider: Darinel Valiente ED Provider: Jose Martin Reynoso Home Meds and New Rx's Prescriptions: Continued loratadine [Allergy Relief (loratadine)] 10 mg tablet 10 mg PO DAILY Qty: 30 2RF sertraline 100 mg tablet 100 mg PO DAILY Qty: 30 3RF sertraline 50 mg tablet 50 mg PO DAILY Qty: 30 3RF trazodone 50 mg tablet 50 mg PO QHS PRN (Reason: insomnia) Qty: 10 0RF Discharge Instructions Additional Instructions: Your covid/flu swab was negative as well as your strep test use the inhaler as needed, 2 puffs every 2-4 hours if not better within 5 days follow up with your primary care provider if you feel more ill, have worsening shortness of breath or persistent vomiting return to the emergency department Stand Alone Forms: Work Release Medical Decision Making 32 yo female who denies chronic medical problems, smoker, who comes in with cc of body aches, cough and sore throat for 2-3 days. Denies fevers, chills, vomiting, abdominal pain, rashes. Denies drug use. Has also had a mild headache. Pt arrives stable speaking clearly in full sentences. She has clear rhinorrhea, mild acpical wheezing otherwise clear lungs, no murmurs, soft nontender abdomen, no leg swelling or calf tenderness. Mild erythema of the posterior pharynx, midline uvula, no submandibular swelling, no pain over the hyoid or restricted neck movements. Suspect viral ur, will obtain fluvid and also strep test. Will treat with duoneb and reassess. Given well appearance, no fevers, and no focal findings on exam do not feel xray indicated. No findings on history or exam to suggest epiglotitis, retropharyngeal abscess, peritonsilar abscess. pt sleeping on reassessment, awakens to voice in no distress states she feels better, wheezing resolved on exam. fluvid and strep negative, given improvement with one neb and well appearance do not feel further testing indicated, and do not feel abx indicated. Will d/c and have her f/u with pcp, return precautions given Differential Diagnosis Differential Diagnosis: covid, flu, strep, uri Lab Data Lab results reviewed: Yes I reviewed the patient's lab results. HPI General Mode of arrival: ambulatory . Date/Time Provider Initiated Documentation: 01/05/23 05:51 . Limitations to Documentation: no limitations . Information obtained by: patient . History of Present Illness 32 year old F presents to the emergency department with the chief complaint of body aches, described as moderate, Patient started experiencing this day(s) (3) and it has been constant. No relieving factors improve symptom(s), No exacerbating factors reported . Patient notes cough; denies fever/chills. Patient did receive the following treatments prior to arrival, NSAID Related Data Home Medications Medication Instructions Recorded Confirmed loratadine 10 mg tablet (Allergy 10 mg PO DAILY #30 tabs 07/14/21 01/05/23 Relief (loratadine)) sertraline 100 mg tablet 100 mg PO DAILY anxiety #30 tabs 07/15/21 01/05/23 sertraline 50 mg tablet 50 mg PO DAILY #30 tabs 07/15/21 01/05/23 trazodone 50 mg tablet 50 mg PO QHS PRN insomnia #10 tabs 07/15/21 01/05/23 Previous Rx's Medication Instructions Recorded loratadine 10 mg tablet (Allergy 10 mg PO DAILY #30 tabs 07/14/21 Relief (loratadine)) sertraline 100 mg tablet 100 mg PO DAILY anxiety #30 tabs 07/15/21 sertraline 50 mg tablet 50 mg PO DAILY #30 tabs 07/15/21 trazodone 50 mg tablet 50 mg PO QHS PRN insomnia #10 tabs 07/15/21 Allergies Allergy/AdvReac Type Severity Reaction Status Date / Time hydroxyprogesterone Allergy Severe Hives Verified 08/04/22 04:51 [From [place]] General Stated Complaint: Headache FELIZ: 4 Review of Systems All systems reviewed & are unremarkable except as noted in HPI and below Constitutional Constitutional: Denies chills, Denies fever(s) and Denies weakness Cardiovascular Cardiovascular: Denies chest pain and Denies dyspnea Respiratory Respiratory: Denies dyspnea Gastrointestinal Gastrointestinal: Denies abdominal pain, Denies nausea and Denies vomiting Genitourinary Genitourinary: Denies dysuria Integumentary/Breasts Skin/Breast: Denies rash Neurologic Neurologic: Denies weakness PFSH All Active Problems (Updated 01/05/23 @ 07:20 by Jose Martin Reynoso MD) Body aches (Acute) Living accommodation issues (Acute) URI (upper respiratory infection) (Acute) Fentanyl use disorder, mild, in early remission, abuse (Acute) Annual physical exam (Acute) Laceration of buttock (Acute) Plantar fasciitis of right foot (Acute) Psoriasis (Chronic) scalp Vitamin D deficiency (Acute) MRSA (methicillin resistant staph aureus) culture positive (Acute) Heroin abuse (Acute) Atypical squamous cells of undetermined significance (ASC-US) on cervical Pap smear (Acute) SUDHA 08/13/19 Repeat Pap PP Asthma (Chronic) Fatigue (Chronic) Seasonal allergies (Acute) Obesity (Acute) Migraine (Acute 01/20/12) Major depressive disorder with current active episode (Chronic 06/22/18) Medical History (Updated 01/05/23 @ 07:20 by Jose Martin Reynoso MD) Diabetes in High risk due to maternal drug abuse Outcome of delivery, single liveborn (04/30/15) labor (04/29/15) Supervision of other normal (10/22/14) Surgical History (Updated 07/16/21 @ 14:17 by Nelly Coto NP) Status post emergency section Family History (Updated 07/17/21 @ 13:13 by Peggy Castillo) Mother Alcohol use disorder Depression Father Alcohol use disorder Depression Brother Depression Son No problems noted. Son No problems noted. Daughter No problems noted. 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 Communication Needs: Corrective Lenses Pets and animals: Yes Pets and animals: cat(s) Sexually active: Yes Do you think of yourself as: straight/heterosexual Current gender identity: female What is your relationship status?: never How often do you talk on the phone with friends or family?: three or more times per week How often do you get together with friends or relatives?: decline to answer How often do you attend zoroastrian or jain services?: decline to answer Do you belong to any clubs or organized social groups?: no Panel score (0-1 are the most socially isolated patients): 1 What type of physical activity do you participate in: walking Duration: 30-45 minutes/day Una/Lutheran: No preference Seatbelt use: sometimes 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 Date GA/Weeks # Preg Succ Route Wgt Sex Labor Lgth Anesth esia Location Prov Complic 10/28/11 37 No vaginal 3486.991 g Male 13 hrs n[facility] h-anea 05/20/13 35 No vaginal 2608.156 g Female 4.5 hrs n [facility] 04/30/15 35 No vaginal 2721.554 g Male 2 hrs [facility] -anea 07/30/[address] Shrestha el Delivery Date: 10/28/11 Last Updated by: Roni Jackson CNM iol for pprom Delivery Date: 05/20/13 Last Updated by: Roni Jackson CNM iol for pprom Delivery Date: 04/30/15 Last Updated by: Roni Jackson CNM precipitous Exam Const General: no acute distress Orientation: alert [facility] Head: normal to inspection Ears: external ears normal General nose exam: external nose normal Mouth: moist mucous membranes Eyes General: appearance normal, both eyes and all related structures Neck Neck: normal visual inspection Resp Effort & Inspection: normal respiratory effort and able to speak in complete sentences Auscultation: clear to auscultation bilaterally Cardio Jugular venous pressure: no JVD Rate: regular rate Rhythm: regular rhythm Heart Sounds: no murmurs GI Palpation: soft and nontender Skin General skin exam: no rashes or lesions noted Neuro General: patient alert and patient oriented x3 Extrem General: normal to inspection Psych Mental Status: mental status grossly normal Course Vital Signs Vital signs: Vital Signs Temperature 36.8 C 01/05/23 05:53 Pulse 78 01/05/23 05:53 Respiratory Rate 18 01/05/23 05:53 Blood Pressure 147/59 H 01/05/23 05:53 Pulse Oximetry 99 01/05/23 05:53 Temperature 36.8 C 01/05/23 05:53 Temperature Source Oral 01/05/23 05:53 Pulse 78 01/05/23 05:53 Respiratory Rate 18 01/05/23 05:53 Respiratory Effort Normal 01/05/23 05:57 Blood Pressure 147/59 H 01/05/23 05:53 Blood Pressure Position Sitting 01/05/23 05:53 Pulse Oximetry 99 01/05/23 05:53 Oxygen Delivery Method Room Air 01/05/23 05:53 Oxygen Flow Rate 0 01/05/23 05:53 Pain Level 4 01/05/23 05:53
[2023-01-05 06:12] VITALS: RESP 4
[2023-01-05] MEDS: Albuterol/Ipratropium 3 ML UPD VIAL UPD (06:12)
[2023-01-05] MEDS: Dexamethasone 4 MG TAB 10 MG PO (06:12)
[2023-01-05 06:46] LABS: COVID-19 PCR Negative (Negative); Influenza A PCR Negative (Negative); Influenza B PCR Negative (Negative); RSV PCR Negative (Negative)
[2023-01-05 06:47] LABS: Source Nasopharynx
[2023-01-05] MEDS: Albuterol HFA 8 GM 60 PUFF INH IH (07:27)
[2023-01-05 07:28] VITALS: BP 130/63; PULSE 72; RESP 16; TEMP 36.9; O2SAT 98
[2023-01-05] MEDS: Inhaler, Assist Device 1 EACH MC (07:28)
== END 2023-01-05 07:20 | disposition home or self-care (01) ==
PROVIDERS: Emergency Provider Emergency Medicine; PCP Nurse Practitioner Family
DX: R51.9 Headache, unspecified (principal); J02.9 Acute pharyngitis, unspecified; F17.210 Nicotine dependence, cigarettes, uncomplicated; Z20.822 Contact with and (suspected) exposure to COVID-19
CPT/HCPCS: 87637; 87880; 99283; 87081; 99284; J7620; J8540

== ENCOUNTER 2023-03-20 18:00 | Emergency (ER) | payer MEDICAID, SELFPAY ==
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
[2023-03-20 18:01] VITALS: BP 125/69; PULSE 69; RESP 14; TEMP 37.1; O2SAT 99
--- NOTE | 2023-03-20 18:15 | DI.RAD_ITS ---
Exam(s) XR ANKLE LT COMPLETE EXAM: XR ANKLE LT COMPLETE CLINICAL HISTORY: lateral pain. TECHNIQUE: 2D digital imaging was performed. COMPARISON: No exams were available for comparison FINDINGS: 3 views No evidence of acute fracture nor widening of the ankle mortise. Talar dome unremarkable. No soft t issue swelling. No osseous tarsal coalition. Small inferior calcaneal spur noted. IMPRESSION: No acute osseous findings in the ankle. DATA REPOSITORY: RADIATION DOSE DELIVERED:
--- NOTE | 2023-03-20 18:15 | DI.RAD_ITS ---
Exam(s) XR FOOT LT COMPLETE EXAM: XR FOOT LT COMPLETE CLINICAL HISTORY: lateral pain. TECHNIQUE: 2D digital imaging was performed. COMPARISON: CR XR FOOT RT COMPLETE from 08/29/2020 FINDINGS: 3 views No evidence of acute fracture nor diastasis of the Lisfranc joint. Bone density normal. No osseous lesions. Small inferior calcaneal spur noted. No radiopaque foreign body. IMPRESSION: No acute osseous findings. DATA REPOSITORY: RADIATION DOSE DELIVERED:
[2023-03-20] MEDS: Acetaminophen 325 MG TAB PO (18:44)
--- NOTE | 2023-03-20 19:06 | DI.VRAD_ITS ---
PROCEDURE INFORMATION: Exam: XR Left Foot Exam date and time: 03/20/2023 18:38 Age: 32 years old Clinical indication: Injury or trauma; Fall; Blunt trauma; Foot; Left TECHNIQUE: Imaging protocol: Radiologic exam of the left foot. Views: 3 or more views. COMPARISON: CR XR ANKLE LT COMPLETE 03/20/2023 18:35 FINDINGS: Bones/joints: Plantar calcaneal spur. Posterior calcaneal spur. No acute fracture or subluxation. Soft tissues: Generalized soft tissue swelling. IMPRESSION: No acute bony pathology. Dictated and Authenticated by: Caroline Vail MD. Ordering:JIE Grant MD
--- NOTE | 2023-03-20 19:06 | DI.VRAD_ITS ---
PROCEDURE INFORMATION: Exam: XR Left Ankle Exam date and time: 03/20/2023 18:35 Age: 32 years old Clinical indication: Injury or trauma; Fall; Blunt trauma; Ankle; Left TECHNIQUE: Imaging protocol: Radiologic exam of the left ankle. Views: 3 or more views. COMPARISON: No relevant prior studies available. FINDINGS: Bones/joints: Plantar calcaneal spur. Posterior calcaneal spur. No acute fracture or subluxation. Soft tissues: Soft tissue swelling medially. IMPRESSION: No acute bony pathology. Dictated and Authenticated by: Caroline Vail MD. Ordering:JIE Grant MD
== END 2023-03-20 19:29 | disposition home or self-care (01) ==
LOC: ER 20:55
PROVIDERS: Emergency Provider Nurse Practitioner Family; PCP Nurse Practitioner Family
DX: S93.402A Sprain of unspecified ligament of left ankle, initial encounter; Z59.819 Housing instability, housed unspecified; F11.11 Opioid abuse, in remission
CPT/HCPCS: 99284; 73610; 73630

== ENCOUNTER 2023-05-21 16:51 | Outpatient (REF) | payer MEDICAID, SELFPAY ==
[2023-05-24 12:44] LABS: Lyme Ab w Rflx to Lyme Confirm Positive (Negative)
[2023-05-24 14:19] LABS: Lyme IgG Ab Positive (Negative); Lyme IgM Ab Positive (Negative)
[2023-05-25 15:15] LABS: Anaplasma phagocytophilum Negative (Negative); B. miyamotoi PCR Negative (Negative); Babesia divergens/MO-1 Negative (Negative); Babesia duncani Negative (Negative); Babesia microti Negative (Negative); Ehrlichia chaffeensis Negative (Negative); Ehrlichia ewingii/canis Negative (Negative); Ehrlichia muris eauclairensis Negative (Negative)
== END 2023-05-21 16:52 | disposition home or self-care (01) ==
LOC: LBN 16:51
PROVIDERS: PCP Nurse Practitioner Family; Visit Provider Physician Assistant Medical
DX: R21 Rash and other nonspecific skin eruption (principal)
CPT/HCPCS: 86617; 87798; 86618

== ENCOUNTER → 2023-09-22 00:09 | Outpatient (CLI) | payer MEDICAID, SELFPAY ==
--- NOTE | 2023-09-22 08:00 | DI.MRI_ITS ---
Exam(s) MR LOWER JOINT RT WO EXAM: MR LOWER JOINT RT WO CLINICAL HISTORY: post-surgical pain rt knee and swelling (sx in 2013),[id number]. TECHNIQUE: Multiplanar multisequence MRI was performed. COMPARISON: CR,XR XR KNEE RT 3V AP,LAT,LANDEN from 08/04/2022 FINDINGS: The examination is limited due to patient motion artifact. BONES: There is no fracture or contusion pattern. JOINTS: Tricompartment degenerative changes are present characterized by osteophytes and cartilage th inning. The findings are most marked in the lateral femoral tibial joint. There is a small joint ef fusion. TENDONS: Extensor mechanism: Unremarkable. Medial retinaculum: Unremarkable. Lateral retinaculum: Unremarkable. Popliteus: Unremarkable. MUSCLES: Unremarkable. MENISCI: The medial meniscus is unremarkable. There is decrease in size of the posterior horn and anna dy of the lateral meniscus consistent with degeneration. There is hyperintense signal seen in the anna dy of the meniscus suggesting a tear. SOFT TISSUES: Unremarkable. LIGAMENTS: Anterior Cruciate: There is attenuation of the anterior cruciate ligament suggesting a partial tear. There is heterogeneity of the signal of the ACL. Posterior Cruciate: Unremarkable. Medial Collateral:Unremarkable. Lateral Collateral: Unremarkable. OTHER: IMPRESSION: 1. Degeneration of the body and posterior horn of the lateral meniscus with question of a tear involv ing the body of the lateral meniscus. 2. Decreased size and heterogeneity of the ACL which may represent a partial tear or sprain. 3. Degenerative changes in the knee particularly involving the lateral femoral tibial joint. 4. Joint effusion. DATA REPOSITORY:
== END ==
PROVIDERS: PCP Nurse Practitioner Family; Visit Provider Nurse Practitioner Family
DX: M25.561 Pain in right knee (principal)
CPT/HCPCS: 73721

== ENCOUNTER 2023-12-06 08:37 | Emergency (ER) | payer MEDICAID, SELFPAY ==
[2023-12-06 08:48] VITALS: BP 137/48; PULSE 62; RESP 18; TEMP 36.8; O2SAT 97
--- NOTE | 2023-12-06 09:11 | ED.GENADUL_ITS ---
HPI General Mode of arrival: ambulatory . Date/Time Provider Initiated Documentation: 12/06/23 08:38 . Limitations to Documentation: no limitations . Information obtained by: patient . History of Present Illness 33 year old F presents to the emergency department with the chief complaint of Abscess left thigh, described as moderate and severe, and is localized to the left and lower extremity. Patient started experiencing this day(s) (4) and it has been constant. No relieving factors improve symptom(s), No exacerbating factors reported . Patient notes no other symptoms.. Patient did receive the following treatments prior to arrival, none Related Data Home Medications Medication Instructions Recorded Confirmed acetaminophen 500 mg capsule 1,000 mg (2 x 500 mg) PO QID PRN 07/31/23 12/06/23 pain #60 caps hydroxyzine HCl 25 mg tablet 25 mg PO BID PRN itching #90 tabs 07/31/23 12/06/23 ibuprofen 800 mg tablet 800 mg PO Q8H PRN pain #30 tabs 07/31/23 12/06/23 trazodone 50 mg tablet 50 mg PO QHS insomnia #90 tabs 07/31/23 12/06/23 sulfamethoxazole 800 1 tab PO BID #14 tabs 12/06/23 mg-trimethoprim 160 mg tablet (Bactrim DS) Previous Rx's Medication Instructions Recorded acetaminophen 500 mg capsule 1,000 mg (2 x 500 mg) PO QID PRN 07/31/23 pain #60 caps hydroxyzine HCl 25 mg tablet 25 mg PO BID PRN itching #90 tabs 07/31/23 ibuprofen 800 mg tablet 800 mg PO Q8H PRN pain #30 tabs 07/31/23 trazodone 50 mg tablet 50 mg PO QHS insomnia #90 tabs 07/31/23 sulfamethoxazole 800 1 tab PO BID #14 tabs 12/06/23 mg-trimethoprim 160 mg tablet (Bactrim DS) Allergies Allergy/AdvReac Type Severity Reaction Status Date / Time hydroxyprogesterone Allergy Severe Hives Verified 12/06/23 08:47 [From Lizet] General Stated Complaint: Cellulitis FELIZ: 4 Review of Systems Constitutional Constitutional: Denies fever(s) Gastrointestinal Gastrointestinal: Denies nausea Integumentary/Breasts Skin/Breast: Reports as per HPI, Reports furuncle, Reports erythema and Reports skin pain Exam Const General: cooperative, no acute distress and not ill appearing Orientation: alert, awake and oriented x3 HENMT Mouth: moist mucous membranes Resp Effort & Inspection: normal respiratory effort, able to speak in complete sentences and no respiratory distress Neuro General: patient alert, patient awake, patient oriented x3, moves all extremities and no focal motor deficits Sensory Exam: no sensory deficits noted Extrem Left lower extremity: hip/thigh Details: abnormal to inspection (Abscess anterior medial surrounding erythema) Course Vital Signs Vital signs: Vital Signs Temperature 36.8 C 12/06/23 08:48 Pulse 62 12/06/23 08:48 Respiratory Rate 18 12/06/23 08:48 Blood Pressure 137/48 L 12/06/23 08:48 Pulse Oximetry 97 12/06/23 08:48 Temperature 36.8 C 12/06/23 08:48 Temperature Source Oral 12/06/23 08:48 Pulse 62 12/06/23 08:48 Respiratory Rate 18 12/06/23 08:48 Respiratory Effort Normal, Non-Labored 12/06/23 08:52 Blood Pressure 137/48 L 12/06/23 08:48 Pulse Oximetry 97 12/06/23 08:48 Pain Level 5 12/06/23 08:48 Medical Decision Making Patient presenting to the emergency department for chief complaint of abscess?boil to left thigh. She reports no known injury or trauma, IV injection or drug use. She noticed a small fluid-filled pimple/bubble that it been there for a couple days. Then yesterday it popped and started draining but she is having continued drainage and pain and so wanted to be evaluated. Patient denies any fever, other areas of abscess, denies all other medical complaints. Patient does state history of MRSA. Physical exam shows a approximately 2 to 3 cm abscess with surrounding induration and erythema. The abscess is draining. Exam is otherwise noncontributory. Vital signs are stable patient is afebrile. Patient is also nontoxic in appearance. I discussed with patient I&D but she is adamantly refusing any I&D at this point. Given that the abscess is draining on its own we discussed use of warm compresses at least 4 times a day for 20 minute s along with starting patient on Bactrim DS. After discussion of diagnosis and plan of care patient has no further needs, questions, or concerns and states clear understanding to return to the emergency department for any worsening symptoms. This documentation was generated using [employer] dictation system, please disregard any oddities of phrase or misspellings. Quality:SDOH Health Related Social Needs: No Data to Display PFSH All Active Problems (Updated 12/06/23 @ 09:16 by Rudy Allen NP) Abscess (Acute) Major depressive disorder with current active episode (Chronic 06/22/18) Migraine (Chronic 01/20/12) Obesity (Chronic) Seasonal allergies (Acute) Fatigue (Chronic) Asthma (Chronic) Atypical squamous cells of undetermined significance (ASC-US) on cervical Pap smear (Acute) SUDHA 08/13/19 Repeat Pap PP Heroin abuse (Acute) MRSA (methicillin resistant staph aureus) culture positive (Acute) Vitamin D deficiency (Chronic) Psoriasis (Chronic) scalp Plantar fasciitis of right foot (Chronic) Laceration of buttock (Acute) Annual physical exam (Acute) Fentanyl use disorder, mild, in early remission, abuse (Acute) URI (upper respiratory infection) (Acute) Living accommodation issues (Acute) Right knee pain (Acute) s/p lateral meniscectomy on 11/06/[address] Arango Medical History Diabetes in High risk due to maternal drug abuse Supervision of other normal (10/22/14) labor (04/29/15) Outcome of delivery, single liveborn (04/30/15) Surgical History Status post emergency section Family History Mother Alcohol use disorder Depression Father Alcohol use disorder Depression Brother Depression Son No problems noted. Son No problems noted. Daughter No problems noted. 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: landlord Housing: homeless Communication Needs: Corrective Lenses Pets and animals: Yes Pets and animals: cat(s) Sexually active: Yes Do you think of yourself as: straight/heterosexual Current gender identity: female What is your relationship status?: never How often do you talk on the phone with friends or family?: three or more times per week How often do you get together with friends or relatives?: decline to answer How often do you attend presybeterian or jehovah's witness services?: decline to answer Do you belong to any clubs or organized social groups?: no Panel score (0-1 are the most socially isolated patients): 1 What type of physical activity do you participate in: walking Duration: 30-45 minutes/day Una/Confucianism: No preference Seatbelt use: sometimes Drive intox or ride w/intox driver supervisor: No Do you feel safe at home: Yes Do you feel safe in your relationship?: Yes Female Reproductive History Menstrual Age of Menarche: 11 Duration of menses: 3-5 days History History 4 Para 3 Hx # Term Pregnancies 1 Multiple births 0 Hx # Pregnancies 2 Ectopic pregnancies 0 AB induced 0 Hx Number of Living Children 4 AB spontaneous 0 Past Pregnancies Del. Date GA/Weeks # Preg Succ Route Wgt Sex Labor Lgth Anesth esia Location [facility] 10/28/11 37 No vaginal 3486.991 g Male 13 hrs nvr h-anea 05/20/13 35 No vaginal 2608.156 g Female 4.5 hrs n [facility]-anea 04/30/15 35 No vaginal 2721.554 g Male 2 hrs [facility] -anea 07/30/[address] Henrietta torres Delivery Date: 10/28/11 Last Updated by: Roni Jackson CNM iol for pprom Delivery Date: 05/20/13 Last Updated by: Roni Jackson CNM iol for pprom Delivery Date: 04/30/15 Last Updated by: Roni Jackson CNM precipitous Discharge Plan Disposition Patient Disposition: Home Discharge Details Clinical Impression: Abscess Primary Care Provider: Darinel Valiente ED Provider: Rudy Allen Home Meds and New Rx's Prescriptions: New sulfamethoxazole-trimethoprim [Bactrim DS] 800-160 mg tablet 1 tab PO BID Qty: 14 0RF Continued trazodone 50 mg tablet 50 mg PO QHS Qty: 90 0RF Patient Comments: Pt stated not taking hydroxyzine HCl 25 mg tablet 25 mg PO BID PRN (Reason: itching) Qty: 90 0RF acetaminophen 500 mg capsule 1,000 mg PO QID PRN (Reason: pain) Qty: 60 0RF ibuprofen 800 mg tablet 800 mg PO Q8H PRN (Reason: pain) Qty: 30 0RF Discharge Instructions Instructions: Abscess (ED) Additional Instructions: Please apply warm compresses to the abscess at least 4 times a day and apply them for 10 to 20 minutes at a time. Continue to perform bandage changes and it is a good thing if it continues to drain. Continue to take antibiotics as prescribed and complete the entire course of medication and do not save any pills. Return to the emergency department immediately for any new or significant worsening of symptoms and it is recommended that you follow-up with primary care provider to ensure appropriate healing. Referrals: Darinel Valiente NP [Primary Care Provider] - 3 days Discharge Data Discharge Date/Time-TO BE ENTERED AT DEPARTURE: 12/06/23 09:55
[2023-12-06] MEDS: Sulfameth/Trimeth DS TAB 1 TAB PO (09:46)
--- NOTE | 2023-12-06 10:24 | NUR.NOTE ---
Faxed Referral to Primary Care Provider for follow up on Abscess Wednesday or .
== END 2023-12-06 09:55 | disposition home or self-care (01) ==
PROVIDERS: Emergency Provider Nurse Practitioner Family; PCP Nurse Practitioner Family
DX: L02.416 Cutaneous abscess of left lower limb (principal)
CPT/HCPCS: 99283

== ENCOUNTER 2024-01-22 10:02 | Emergency (ER) | payer MEDICAID, SELFPAY ==
[2024-01-22 10:11] VITALS: BP 148/85; PULSE 80; RESP 20; TEMP 37.1; O2SAT 98
--- NOTE | 2024-01-22 10:25 | ED.GENADUL_ITS ---
Discharge Plan Disposition Patient Disposition: Home Condition: Stable Discharge Details Clinical Impression: Itching of vagina Primary Care Provider: Darinel Valiente ED Provider: Jose Martin Reynoso Home Meds and New Rx's Prescriptions: New miconazole nitrate [Monistat 3] 4 % (200 mg)- 2 % (9 gram) comb pack,prefill appl, cream 1 appful vaginal DAILY 3 Days Qty: 24 0RF Rx Instructions: as vaginal cream metronidazole 500 mg tablet 500 mg PO BID Qty: 14 0RF Discharge Instructions Additional Instructions: Follow-up with either your primary care provider or [facility] their phone number is [phone] If you feel more ill, have severe abdominal pain, or persistent vomiting return to the emergency department for reevaluation HPI General Mode of arrival: ambulatory . Date/Time Provider Initiated Documentation: 01/22/24 10:19 . Limitations to Documentation: no limitations . Information obtained by: patient . History of Present Illness 33 year old F presents to the emergency department with the chief complaint of Vaginal itching, described as moderate, Patient started experiencing this week(s) (1) and it has been constant. No relieving factors improve symptom(s), No exacerbating factors reported . Patient notes no other symptoms.; denies fever/chills. Patient did receive the following treatments prior to arrival, none Related Data Home Medications Medication Instructions Recorded Confirmed metronidazole 500 mg tablet 500 mg PO BID #14 tabs 01/22/24 miconazole nitrate 4 % (200 mg)-2 1 appful vaginal DAILY 3 days #24 01/22/24 % (9 gram)vaginal,prefill grams appl,cream (Monistat 3) Previous Rx's Medication Instructions Recorded metronidazole 500 mg tablet 500 mg PO BID #14 tabs 01/22/24 miconazole nitrate 4 % (200 mg)-2 1 appful vaginal DAILY 3 days #24 01/22/24 % (9 gram)vaginal,prefill grams appl,cream (Monistat 3) Allergies Allergy/AdvReac Type Severity Reaction Status Date / Time hydroxyprogesterone Allergy Severe Hives Verified 01/22/24 10:10 [From Lizet] General Stated Complaint: POWDERER FELIZ: 4 Review of Systems All systems reviewed & are unremarkable except as noted in HPI and below Constitutional Constitutional: Denies chills, Denies fever(s) and Denies weakness Cardiovascular Cardiovascular: Denies chest pain and Denies dyspnea Respiratory Respiratory: Denies cough and Denies dyspnea Gastrointestinal Gastrointestinal: Denies abdominal pain, Denies nausea and Denies vomiting Musculoskeletal Musculoskeletal: Denies joint swelling Neurologic Neurologic: Denies weakness Exam Const General: no acute distress Orientation: alert HENIA Head: normal to inspection Ears: external ears normal General nose exam: external nose normal Mouth: moist mucous membranes Eyes General: appearance normal, both eyes and all related structures Neck Neck: normal visual inspection Resp Effort & Inspection: normal respiratory effort and able to speak in complete sentences Cardio Rate: regular rate GI Palpation: soft and nontender Skin General skin exam: no rashes or lesions noted Neuro General: patient alert and patient oriented x3 Extrem General: normal to inspection Psych Mental Status: mental status grossly normal Course Vital Signs Vital signs: Vital Signs Temperature 37.1 C 01/22/24 10:11 Pulse 80 01/22/24 10:11 Respiratory Rate 20 01/22/24 10:11 Blood Pressure 148/85 H 01/22/24 10:11 Pulse Oximetry 98 01/22/24 10:11 Temperature 37.1 C 01/22/24 10:11 Temperature Source Tympanic 01/22/24 10:11 Pulse 80 01/22/24 10:11 Respiratory Rate 20 01/22/24 10:11 Blood Pressure 148/85 H 01/22/24 10:11 Pulse Oximetry 98 01/22/24 10:11 Oxygen Delivery Method Room Air 01/22/24 10:11 Oxygen Flow Rate 0 01/22/24 10:11 Pain Level 3 01/22/24 10:11 Lab/Test Results Lab/Test Results: POC- Test(urine) Negative Medical Decision Making 33-year-old female comes in with 1 to 2 weeks of vaginal itching which worsened yesterday. Denies any vaginal discharge or bleeding, no fevers or chills. No abdominal pain. She is alert and in no distress on arrival, has no abdominal tenderness. Declines internal exam, did allow an external exam with nurse equity research analyst has no visible masses or lesions, no discharge currently. Will obtain GC chlamydia and also obtain vaginal pathogen screening. [id number] test negative. Do not feel any imaging indicated given lack of abdominal pain and no tenderness on exam Patient declines to wait for results, has decision-making capacity, I will call her for any of her vaginal path screens come back positive. She was advised to follow-up with either [facility] or her primary care, return precautions given patient positive for gardnerrela and trichomonas, called and left message for patient that flagyl sent to her pharmacy. Differential Diagnosis Differential Diagnosis: STD, yeast infection Quality:SDOH Health Related Social Needs: No Data to Display PFSH All Active Problems (Updated 01/22/24 @ 10:32 by Jose Martin Reynoso MD) Itching of vagina (Acute) Major depressive disorder with current active episode (Chronic 06/22/18) Migraine (Chronic 01/20/12) Obesity (Chronic) Seasonal allergies (Acute) Fatigue (Chronic) Asthma (Chronic) Atypical squamous cells of undetermined significance (ASC-US) on cervical Pap smear (Acute) SUDHA 08/13/19 Repeat Pap PP Heroin abuse (Acute) MRSA (methicillin resistant staph aureus) culture positive (Acute) Vitamin D deficiency (Chronic) Psoriasis (Chronic) scalp Plantar fasciitis of right foot (Chronic) Laceration of buttock (Acute) Annual physical exam (Acute) Fentanyl use disorder, mild, in early remission, abuse (Acute) URI (upper respiratory infection) (Acute) Living accommodation issues (Acute) Right knee pain (Acute) s/p lateral meniscectomy on 11/06/[address] Arango Medical History Diabetes in High risk due to maternal drug abuse Supervision of other normal (10/22/14) labor (04/29/15) Outcome of delivery, single liveborn (04/30/15) Surgical History Status post emergency section Family History Mother Alcohol use disorder Depression Father Alcohol use disorder Depression Brother Depression Son No problems noted. Son No problems noted. Daughter No problems noted. 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: landlord Housing: homeless Communication Needs: Corrective Lenses Pets and animals: Yes Pets and animals: cat(s) Sexually active: Yes Do you think of yourself as: straight/heterosexual Current gender identity: female What is your relationship status?: never How often do you talk on the phone with friends or family?: three or more times per week How often do you get together with friends or relatives?: decline to answer How often do you attend sikhism or islam services?: decline to answer Do you belong to any clubs or organized social groups?: no Panel score (0-1 are the most socially isolated patients): 1 What type of physical activity do you participate in: walking Duration: 30-45 minutes/day Una/Mandaen: No preference Seatbelt use: sometimes Drive intox or ride w/intox experienced truck driver: No Do you feel safe at home: Yes Do you feel safe in your relationship?: Yes Female Reproductive History Menstrual Age of Menarche: 11 Duration of menses: 3-5 days History History 4 Para 3 Hx # Term Pregnancies 1 Multiple births 0 Hx # Pregnancies 2 Ectopic pregnancies 0 AB induced 0 Hx Number of Living Children 4 AB spontaneous 0 Past Pregnancies Del. Date GA/Weeks # Preg Succ Route Wgt Sex Labor Lgth Anesth esia Location [facility] 10/28/11 37 No vaginal 3486.991 g Male 13 hrs nvr h-anea 05/20/13 35 No vaginal 2608.156 g Female 4.5 hrs n [facility]-anea 04/30/15 35 No vaginal 2721.554 g Male 2 hrs [facility] -anea 07/30/[address] Shrestha el Delivery Date: 10/28/11 Last Updated by: Roni Jackson CNM iol for pprom Delivery Date: 05/20/13 Last Updated by: Roni Jackson CNM iol for pprom Delivery Date: 04/30/15 Last Updated by: Roni Jackson CNM precipitous
[2024-01-24 14:34] LABS: Chlamydia Result Negative (Negative); GC Result Negative (Negative)
== END 2024-01-22 11:14 | disposition home or self-care (01) ==
PROVIDERS: Emergency Provider Emergency Medicine; PCP Nurse Practitioner Family
DX: L29.2 Pruritus vulvae (principal)
CPT/HCPCS: 87491; 87591; 99283; 87480; 87510; 87660

== ENCOUNTER 2024-02-12 12:07 | Outpatient (REF) | payer MEDICAID, SELFPAY ==
[2024-02-12 17:31] LABS: Bacteria Moderate HPF (Negative); Crystals Negative HPF (Negative); Epithelial Cells Few HPF (Negative); Mucus Negative (Negative); RBC 0-2 HPF (0-2)
[2024-02-12 17:32] LABS: C & S Indicated? C&S Done As Ordered; Casts Negative LPF (Negative)
[2024-02-14 13:25] LABS: Chlamydia Result Negative (Negative); GC Result Negative (Negative)
== END 2024-02-12 12:08 | disposition home or self-care (01) ==
LOC: LBN 12:07
PROVIDERS: PCP Nurse Practitioner Family; Visit Provider Physician Assistant Medical
DX: N89.8 Other specified noninflammatory disorders of vagina (principal)
CPT/HCPCS: 87491; 87591; 81015; 87086; 87480; 87510; 87660

== ENCOUNTER 2024-12-29 11:37 | Emergency (ER) | payer MEDICAID, SELFPAY ==
[2024-12-29 11:46] VITALS: BP 152/90; PULSE 68; RESP 18; TEMP 36.9; O2SAT 98
--- NOTE | 2024-12-29 11:54 | NUR.NOTE ---
Nursing Note: Called JUNO in [facility] to verify patient was denied dosing this morning and what her current dose is. Nurse Adriane states patient was set up for guest dosing from the [facility] and can not get dosed in [facility] due to her family member working there. Alexander FRAIRE called and spoke with nurse Spicer who states she will have their medical insurance coder Shelbie Swift call and speak to our provider to verify dosing.
--- NOTE | 2024-12-29 12:03 | ED.GENADUL_ITS ---
Discharge Plan Disposition Patient Disposition: Home Condition: Good Discharge Details Clinical Impression: Methadone maintenance therapy patient Primary Care Provider: Darinel Valiente ED Provider: Anne Storey Home Meds and New Rx's Prescriptions: Continued methadone [Methadone Intensol] 130 mg PO DAILY Discharge Instructions Additional Instructions: You are given 130 mg of liquid methadone here. Your home clinic in [place] is expecting you tomorrow for your Wednesday dosing. Please continue to follow-up with them. If you develop any new or worsening symptoms seek care in the emergency department again. Referrals: Darinel Valiente, INTERNET MARKET[employer] SPECIALIST [Primary Care Provider] - Discharge Data Discharge Date/Time-TO BE ENTERED AT DEPARTURE: 12/29/24 12:41 HPI General Date/Time Provider Initiated Documentation: 12/29/24 11:42 . Limitations to Documentation: no limitations . Information obtained by: patient, RN/MD and RN notes reviewed . History of Present Illness 34 year old F presents to the emergency department with the chief complaint of Presenting for methadone dosing she was unable to obtain this elsewhere, Related Data Home Medications ?Medication ?Instructions ?Recorded ?Confirmed methadone 130 mg PO DAILY 12/29/24 12/29/24 Allergies Allergy/AdvReac Type Severity Reaction Status Date / Time hydroxyprogesterone (From Allergy Severe Hives Verified 12/29/24 11:43 Lizet) General Stated Complaint: DrugWithdr/MAT FELIZ: 4 Review of Systems Constitutional Constitutional: Reports as per HPI, Denies fever(s) and Denies headache(s) ENT Ears, Nose, Mouth, and Throat: Denies headache(s) Cardiovascular Cardiovascular: Reports as per HPI, Denies chest pain and Denies dyspnea Respiratory Respiratory: Reports as per HPI, Denies cough and Denies dyspnea Neurologic Neurologic: Denies headache(s) Exam Const General: cooperative, healthy appearing, comfortable and no acute distress Nutritional Appearance: average body habitus and well nourished Orientation: alert and awake Resp Effort & Inspection: normal respiratory effort, able to speak in complete sentences and no respiratory distress Cardio Rate: regular rate Rhythm: regular rhythm Skin General skin exam: no rashes or lesions noted Neuro General: patient alert and patient awake Cognition: normal cognition Speech: speech normal Gait: normal gait Course Vital Signs Vital signs: Vital Signs Temperature 36.9 C 12/29/24 11:46 Pulse 68 12/29/24 11:46 Respiratory Rate 18 12/29/24 11:46 Blood Pressure 152/90 H 12/29/24 11:46 Pulse Oximetry 98 12/29/24 11:46 Temperature 36.9 C 12/29/24 11:46 Temperature Source Oral 12/29/24 11:46 Pulse 68 12/29/24 11:46 Respiratory Rate 18 12/29/24 11:46 Respiratory Pattern Normal 12/29/24 11:54 Blood Pressure 152/90 H 12/29/24 11:46 Blood Pressure Position Sitting 12/29/24 11:46 Pulse Oximetry 98 12/29/24 11:46 Oxygen Delivery Method Room Air 12/29/24 11:46 Oxygen Flow Rate 0 12/29/24 11:46 Pain Level 6 12/29/24 11:46 Medical Decision Making Patient is a pleasant 34-year-old female who has a past medical history significant for substance use disorder, presenting today with chief complaint of missed methadone dose. Patient typically receives her methadone through clinic in [place]. However, she was visiting family in this area and a guest dose had been set up by her home clinic. However, due to an unseen conflict of interest, does not actually able to be dosed through them. I did speak with her primary team that works with her in [place], Shelbie, who confirmed that there was a miscommunication and the patient's not able to dose through [facility] that the patient should receive 130 mg liquid methadone. She will return to her home clinic tomorrow in [place] for continued dosing. Patient declines any other interventions at this time. States she is otherwise feeling well and is working on getting her life together and has been staying clean. Patient to be dosed, discharged to home. Patient received her methadone dosing, plan for her follow-up tomorrow with her typical clinic. All of her questions and concerns were addressed and patient is in agreement this plan. This documentation was generated using [employer] dictation system, please disregard any oddities of phrase or misspellings. Quality:SDOH Health Related Social Needs: Health related social needs material hardship(alessandra nguyễn) (Z59.12) PFSH All Active Problems (Updated 12/29/24 @ 12:06 by EDWINA Staples) Methadone maintenance therapy patient (Acute) Major depressive disorder with current active episode (Chronic 06/22/18) Migraine (Chronic 01/20/12) Obesity (Chronic) Seasonal allergies (Acute) Fatigue (Chronic) Asthma (Chronic) Atypical squamous cells of undetermined significance (ASC-US) on cervical Pap smear (Acute) SUDHA 08/13/19 Repeat Pap PP Heroin abuse (Acute) MRSA (methicillin resistant staph aureus) culture positive (Acute) Vitamin D deficiency (Chronic) Psoriasis (Chronic) scalp Plantar fasciitis of right foot (Chronic) Laceration of buttock (Acute) Annual physical exam (Acute) Fentanyl use disorder, mild, in early remission, abuse (Acute) URI (upper respiratory infection) (Acute) Living accommodation issues (Acute) Right knee pain (Acute) s/p lateral meniscectomy on 11/06/[address] Arango Medical History Diabetes in High risk due to maternal drug abuse Supervision of other normal (10/22/14) labor (04/29/15) Outcome of delivery, single liveborn (04/30/15) Surgical History Status post emergency section Family History Mother Alcohol use disorder Depression Father Alcohol use disorder Depression Brother Depression Son No problems noted. Son No problems noted. Daughter No problems noted. 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: landlord Housing: homeless Communication Needs: Corrective Lenses Pets and animals: Yes Pets and animals: cat(s) Sexually active: Yes Do you think of yourself as: straight/heterosexual Current gender identity: female What is your relationship status?: never How often do you talk on the phone with friends or family?: three or more times per week How often do you get together with friends or relatives?: decline to answer How often do you attend sikhism or advent services?: decline to answer Do you belong to any clubs or organized social groups?: no Panel score (0-1 are the most socially isolated patients): 1 What type of physical activity do you participate in: walking Duration: 30-45 minutes/day Una/Taoist: No preference Seatbelt use: sometimes Drive intox or ride w/intox crude oil driver: No Do you feel safe at home: Yes Do you feel safe in your relationship?: Yes Female Reproductive History Menstrual Age of Menarche: 11 Duration of menses: 3-5 days History History 4 Para 3 Hx # Term Pregnancies 1 Multiple births 0 Hx # Pregnancies 2 Ectopic pregnancies 0 AB induced 0 Hx Number of Living Children 4 AB spontaneous 0 Past Pregnancies Del. Date GA/Weeks # Preg Succ Route Wgt Sex Labor Lgth Anesth esia Location Prov Complic 10/28/11 37 No vaginal 3486.991 g Male 13 hrs n[facility] 05/20/13 35 No vaginal 2608.156 g Female 4.5 hrs n [facility] 04/30/15 35 No vaginal 2721.554 g Male 2 hrs [facility] 07/30/[address] Shrestha el Delivery Date: 10/28/11 Last Updated by: Roni Jackson CNM iol for pprom Delivery Date: 05/20/13 Last Updated by: Roni Jackson CNM iol for pprom Delivery Date: 04/30/15 Last Updated by: Roni Jackson CNM precipitous
[2024-12-29] MEDS: Methadone Liquid 10 MG/ML 130 MG PO (12:35)
== END 2024-12-29 12:41 | disposition home or self-care (01) ==
LOC: ER 12:31
PROVIDERS: Emergency Provider Physician Assistant; PCP Nurse Practitioner Family
DX: F11.20 Opioid dependence, uncomplicated (principal); Z59.12 Inadequate housing utilities
CPT/HCPCS: 99283; 99284